=== PATIENT | female | born 1935 | race Caucasian/White ===

== ENCOUNTER → 2023-10-19 08:47 | Outpatient (REF) | payer MEDICARE, OTHER, SELFPAY | LOC: RAD 08:47 | PROVIDERS: ATTENDING PHYSICIAN Nurse Practitioner Family | DX: J06.9 Acute upper respiratory infection, unspecified (principal); R05.1 Acute cough; J47.9 Bronchiectasis, uncomplicated; I50.30 Unspecified diastolic (congestive) heart failure | CPT/HCPCS: 71046 ==

== ENCOUNTER 2023-10-19 15:16 | Emergency (ER) | payer MEDICARE, OTHER, SELFPAY ==
[2023-10-19 15:17] VITALS: BP 163/83
[2023-10-19 15:50] LABS: % Basophils 0.6 % (0-2); % Eosinophils 1.2 % (0-6); % Immature Granulocytes 0.4 % (0-0.5); % Lymphocytes 9.6 % (20.5-51.1); % Monocytes 10.8 % (1.7-9.3); % Neutrophils 77.4 % (42.2-75.2); Absolute Basophils 0.1 10^3/uL (0-0.2); Absolute Eosinophils 0.1 10^3/uL (0-0.7); Absolute Lymphocytes 0.9 10^3/uL (1.2-3.4); Absolute Neutrophils 7.2 10^3/uL (1.4-6.5); Hematocrit 35.8 % (37.0-47.0); Hemoglobin 12.5 g/dL (12.0-16.0); Mean Corp Hgb Conc. 34.9 g/dL (33.0-37.0); Mean Corpuscular Hgb 32.6 pg (27.0-31.0); Mean Corpuscular Volume 93.2 fL (81.0-99.0); Mean Platelet Volume 9.7 fL (7.4-10.4); Nucleated Red Blood Cells % 0 %; Platelet Count 252 10^3/uL (130-400); Red Blood Cell Count 3.84 10^6/uL (4.20-5.40); Red Cell Dist. Width 12.5 % (11.5-14.5); White Blood Cell Count 9.3 10^3/uL (4.8-10.8)
[2023-10-19 15:58] LABS: Lactic Acid 1.5 mmol/L (0.7-2.0)
[2023-10-19 16:04] LABS: COVID-19 Antigen Negative (Negative)
[2023-10-19 16:09] LABS: ALT (SGPT) 27 U/L (0-35); AST (SGOT) 42 U/L (14-36); Alkaline Phosphatase 103 U/L (38-126); Blood Urea Nitrogen 31 mg/dl (7-17); Calcium 8.9 mg/dl (8.4-10.2); Carbon Dioxide 26 mmol/L (22-30); Chloride 94 mmol/L (98-107); Glucose 132 mg/dl (70-99); Potassium 3.9 mmol/L (3.5-5.1); Sodium 129 mmol/L (135-145); Total Bilirubin 0.9 mg/dl (0.2-1.3); Total Protein 7.4 g/dl (6.3-8.2); eGFR 36.41
--- NOTE | 2023-10-19 17:10 | ED.GENMED ---
History of Present Illness
General
Chief Complaint: Breathing Problem
Source: patient
Exam Limitations: none
Time Seen by Provider: 10/19/23 17:09
Nursing documentation reviewed up to this point in time: agreed with
Travel History
Have you had any contact with someone who has COVID-19?: No
Do you have any symptoms of coronavirus? Fever > 100 degrees, chills, cough, shortness of breath, sore throat, loss of taste or smell, muscle aches, or headache?: Yes
Symptoms:: cough, shortness of breath.
History of Present Illness
History of Present Illness:
88-year-old female with history of TIA, neuropathy, A-fib, on Eliquis, CHF, HTN, HLD, GERD, hypothyroid, anxiety/depression presents with cough, increasing SOB for past [address] Cabral 5 days ago and started on Doxycycline 100 mg BID, has
not felt any better with chest congestion, cough, and shortness of breath, voice hoarse.
Out Pt for CXR today showed questionable LLL pneumonia.
Patient denies fever or chills. Denies nausea or vomiting. She denies chest pain. She does have SANCHEZ.
Past History
Past History
ED Past Medical History: Arrthythmia (Atrial fibrillation), GERD, HTN, Hypothyroidism and Other (back pain); Negative Cancer
ED Past Surgical History: Gynecological, Orthopedic and Tonsilectomy
Social History
Tobacco: Non-smoker
Alcohol: None
Drug: None
Personal:
Living: alone
Employment: Retired
Family History
Family History: CAD (Son with CAD)
Review of Systems
Review of Systems
Allergies reviewed?: Yes
All Other Systems: ROS reviewed and negative except as documented in HPI and ROS
Constitutional: Reports fatigue; Denies fever
Respiratory: Reports cough and trouble breathing (SANCHEZ)
Cardiac: Denies chest pain
ABD/GI: Denies abdominal pain, nausea, vomiting or diarrhea
: Denies dysuria, frequency or difficulty voiding
Musculoskeletal: Reports no symptoms; Denies edema
Skin: Reports no symptoms
Neurological: Reports no symptoms
Phy Exam
Physical Exam
Physical Exam:
GENERAL: No acute distress. A&Ox3.
CONSTITUTIONAL: Afebrile.
EYES: clear, conjunctivae normal
ENMT: moist mucus membranes, Pharynx nl, voice hoarse
RESPIRATORY: Regular respirations, nonlabored, lungs with fine crackles right base, more significant crackle left lower lung field. Pulse ox 96% RA, Intermittent coarse cough, nonproductive.
CARDIOVASCULAR: Regular rate and rhythm, no murmurs, no rubs.
GI: Soft, nontender, normal BS
MUSCULOSKELETAL: Moves with ease. Well perfused.
SKIN: Warm, dry, pink
PSYCH: Normal mood and affect. Well kept, interactive and appropriate
NEUROLOGIC: Awake, alert and oriented. No focal neurological deficits
Scores
Heart Failure Risk
Heart Failure Risk Score: Yes
History of Stroke or TIA: Yes
History of intubation for respiratory distress: No
Heart rate on ED arrival >/= 110: No
SaO2 <90% on arrival on room air: No
HR >/=110 during 3min walk test (or too ill to perform test): No
ECG has acute ischemic changes: No
Urea >/=12mmol/L (BUN 33.6mg/dL): No
Serum CO2>/=35mmol/L: No
Troponin I or T elevated to [place] Level (0.4mg/dL): No
NT-proBNP >/=5,000ng/L (5,000pg/ml): No
HF Risk Score: 1
Admission Status: MEDIUM RISK 5.1% Consider observation or discharge to home with homecare & f/u visit to PCP/Team Leader/Research Psychologist, or SNF for treatment
Course
Orders/Labs/Results
Orders:
Orders
10/19/23 15:28
COVID-19 Antigen Urgent
Source: Nasal Swab
Complete Blood Count/With Diff Urgent
Comprehensive Metabolic Panel Urgent
Lactate Level [Lactic Acid] Q4H
Blood Culture Q30M
DEBBIE Source: Blood/Venous
Specimen Description:
Influenza A+B Rapid Molecular Urgent
DEBBIE Source: Nasal Swab
Specimen Description:
10/19/23 17:36
NT-proBNP Urgent
Troponin I Urgent
10/19/23 18:21
Lorazepam [Ativan] 0.5 mg PO NOW STA
10/19/23 19:06
Furosemide [Lasix] 40 mg IV NOW STA
10/19/23 19:07
CefTRIAXone [Rocephin] 1,000 mg IV NOW STA
Abnormal Lab Results
10/19/23
15:28
RBC 3.84 L 10^6/uL
(4.20-5.40)
Hct 35.8 L %
(37.0-47.0)
MCH 32.6 H pg
(27.0-31.0)
Absolute Neuts (auto) 7.2 H 10^3/uL
(1.4-6.5)
Absolute Lymphs (auto) 0.9 L 10^3/uL
(1.2-3.4)
Absolute Monos (auto) 1.0 H 10^3/uL
(0.1-0.6)
Neutrophils % 77.4 H %
(42.2-75.2)
Lymphocytes % 9.6 L %
(20.5-51.1)
Monocytes % 10.8 H %
(1.7-9.3)
Sodium 129 L mmol/L
(135-145)
Chloride 94 L mmol/L
(98-107)
BUN 31 H mg/dl
(7-17)
Creatinine 1.4 H mg/dL
(0.6-1.0)
Glucose 132 H mg/dl
(70-99)
AST 42 H U/L
(14-36)
10/19/23 15:28
10/19/23 15:28
Vital Signs
Initial and Last Documented VS:
Initial Vital Signs
Temp Pulse Resp BP Pulse Ox
98.8 F 82 16 163/83 96
10/19/23 15:17 10/19/23 15:17 10/19/23 15:17 10/19/23 15:17 10/19/23 15:17
Last Documented Vital Signs
Temp Pulse Resp BP Pulse Ox
98.8 F 81 22 131/61 97
10/19/23 15:17 10/19/23 19:30 10/19/23 17:31 10/19/23 19:00 10/19/23 19:15
Juvenile Justice Officer consulted with Physician
Juvenile Justice Officer consulted with physician?: Yes
Name of Physician Consulted: Arlene
MDM/Problems Addressed
Differential Diagnosis Includes:
Pneumonia, COVID, CHF
MDM/Problems Addressed:
88-year-old female with history of TIA, neuropathy, A-fib, on Eliquis, CHF, HTN, HLD, GERD, hypothyroid, anxiety/depression presents with cough, increasing SOB for past [address] Cabral 5 days ago and started on Doxycycline 100 mg BID, has
not felt any better with chest congestion, cough, and shortness of breath, voice hoarse.
Out Pt for CXR today showed questionable LLL pneumonia.
Patient denies fever or chills. Denies nausea or vomiting. She denies chest pain. She does have SANCHEZ.
Afebrile, NAD, no hypoxemia
10/19/2023 1719 PM
Records reviewed:
Patient had outpatient chest x-ray earlier today, radiology report read: IMPRESSION:
Small patchy opacification most likely left lower lobe, suspicious for pneumonia.
CBC with no clinically significant abnormality
CMP: Sodium 129 , BUN/creat at her baseline, GFR slightly worse worsening from previous
COVID-negative
Influenza negative
10/19/2023 1819 PM
BNP 2370
Troponin normal
10/19/2023 1921 PM
88-year-old female with mild left lower lobe pneumonia, has had a total of 5 doses of doxycycline and she was not feeling like she was getting better so she came here for evaluation
She appears absolutely in no distress, she is pleasant and healthy, bright and alert
She is afebrile her blood work is unremarkable
BNP elevated, clinically she is not fluid overloaded
She is very comfortable going home, to continue doxycycline
She was instructed to have her sodium rechecked next week
Case discussed with Dr. Jacobs who agrees with assessment and plan.
Chronic conditions affecting care: HTN and Arrhythmia (afib)
*Pulse Oximetry
Patient hypoxic: no
*Critical Care Note
Total Time (30-74mins, 75-104mins- exclusive of procedures): Not Applicable
ED Attending Note
-
Portions of this chart may have been created with voice recognition software.� Occasional wrong word or��sound alike� substitutions may have occurred due to the inherent limitations of voice recognition software.
Discharge Plan
Departure
Patient Disposition: Home (Routine Discharge)
Date of Disposition: 10/19/23
Time of Disposition: 19:06
Patient with high blood pressure during this ER visit?: No
Condition: Good
Discharge Problem:
LLL pneumonia
Instructions: Community-Acquired Pneumonia, Adult (DC)
Prescriptions:
No Action
cholecalciferol (vitamin D3) 1,000 UNIT tablet
1,000 unit PO DAILY
atorvastatin 40 mg Tablet
20 mg PO QPM
spironolactone 25 mg Tablet
12.5 mg PO DAILY
furosemide 20 mg Tablet
20 mg PO DAILY
Eliquis 5 mg Tablet
5 mg PO BID
famotidine [Pepcid AC] 20 mg Tablet
20 mg PO DAILYPRN PRN (Reason: GERD)
atenolol 50 mg tablet
50 mg PO BID
lorazepam 0.5 MG tablet
0.5 mg PO DAILYPRN PRN (Reason: anxiety) Qty: 3 0RF
dofetilide 125 mcg Capsule
125 mcg PO Q12 Qty: 60 1RF
Referrals:
Tyler Cabral MD [Family Provider] - Follow up in 5-7 days
Activity Restrictions/Additional Instructions:
As we discussed, your blood work shows nothing worrisome
Your sodium is a little low so you should have it rechecked next week by your family doctor
Continue your doxycycline and Mucinex
See your doctor next week for recheck and have your sodium level rechecked at that visit.
Interventions
Interventions:
*Risk Screen - Suicide Last Done: 10/19/23 17:33
*General Assessment Last Done: 10/19/23 17:33
*Neglect/Abuse Screening Last Done: 10/19/23 17:33
ED- Fall Risk Assessment Last Done: 10/19/23 19:42
*ED COVID-19 Vaccine History Last Done: 10/19/23 17:33
*Nursing Disposition Last Done: 10/19/23 19:50
ED- Cardiac Assessment Last Done: 10/19/23 17:41
ED- Pulmonary Assessment Last Done: 10/19/23 17:41
Discharge Date and Time
Discharge Date/Time: 10/19/23 19:51
[2023-10-19 17:31] VITALS: BP 142/75; BMI 27.9
[2023-10-19 18:00] VITALS: BP 127/57
[2023-10-19 18:10] LABS: NT-proBNP 2370 pg/ml; Troponin I < 0.012 ng/ml
[2023-10-19] MEDS: ATIVAN 0.5 MG PO (18:26)
[2023-10-19 19:00] VITALS: BP 131/61
== END 2023-10-19 19:51 | disposition home or self-care (01) ==
LOC: EMR 15:16
PROVIDERS: Registered Nurse; EMERGENCY PHYSICIAN Emergency Medicine; FAMILY PHYSICIAN Internal Medicine Geriatric Medicine
DX: J18.9 Pneumonia, unspecified organism (principal); I11.0 Hypertensive heart disease with heart failure; I48.91 Unspecified atrial fibrillation; I50.9 Heart failure, unspecified; Z11.52 Encounter for screening for COVID-19; Z86.73 Personal history of transient ischemic attack (TIA), and cerebral infarction without residual deficits; Z79.01 Long term (current) use of anticoagulants
CPT/HCPCS: 99284; 71046; 80053; 83605; 83880; 84484; 85025; 87040; 87502; 87811

== ENCOUNTER → 2023-11-07 09:25 | Outpatient (REF) | payer MEDICARE, OTHER, SELFPAY ==
[2023-11-07 10:56] LABS: Blood Urea Nitrogen 34 mg/dl (7-17); Calcium 9.6 mg/dl (8.4-10.2); Carbon Dioxide 31 mmol/L (22-30); Chloride 98 mmol/L (98-107); Glucose 105 mg/dl (70-99); Potassium 3.9 mmol/L (3.5-5.1); Sodium 137 mmol/L (135-145); eGFR 48.63
== END ==
LOC: RAD 09:25
PROVIDERS: ATTENDING PHYSICIAN Nurse Practitioner Family; FAMILY PHYSICIAN Internal Medicine Geriatric Medicine; REFERRING PHYSICIAN Internal Medicine Critical Care Medicine
DX: J18.9 Pneumonia, unspecified organism (principal); E87.1 Hypo-osmolality and hyponatremia
CPT/HCPCS: 36415; 71046; 80048

== ENCOUNTER 2023-12-07 17:07 | Emergency (ER) | payer MEDICARE, OTHER, SELFPAY ==
[2023-12-07] VITALS (18 sets, daily range): BP systolic 86–146; BP diastolic 47–90; BMI 29.1
[2023-12-07 17:31] LABS: % Eosinophils 3.1 % (0-6); % Immature Granulocytes 0.1 % (0-0.5); % Lymphocytes 17.9 % (20.5-51.1); % Monocytes 13.1 % (1.7-9.3); % Neutrophils 64.8 % (42.2-75.2); Absolute Basophils 0.1 10^3/uL (0-0.2); Absolute Eosinophils 0.3 10^3/uL (0-0.7); Absolute Lymphocytes 1.4 10^3/uL (1.2-3.4); Absolute Neutrophils 5.2 10^3/uL (1.4-6.5); Hematocrit 35.7 % (37.0-47.0); Hemoglobin 12.2 g/dL (12.0-16.0); Mean Corp Hgb Conc. 34.2 g/dL (33.0-37.0); Mean Corpuscular Volume 96.5 fL (81.0-99.0); Mean Platelet Volume 9.4 fL (7.4-10.4); Nucleated Red Blood Cells % 0 %; Platelet Count 284 10^3/uL (130-400); Red Cell Dist. Width 12.9 % (11.5-14.5)
[2023-12-07 17:54] LABS: ALT (SGPT) 20 U/L (0-35); AST (SGOT) 33 U/L (14-36); Alkaline Phosphatase 84 U/L (38-126); Blood Urea Nitrogen 42 mg/dl (7-17); Calcium 9.1 mg/dl (8.4-10.2); Carbon Dioxide 26 mmol/L (22-30); Chloride 104 mmol/L (98-107); Glucose 117 mg/dl (70-99); Potassium 4.3 mmol/L (3.5-5.1); Sodium 136 mmol/L (135-145); Total Bilirubin 0.4 mg/dl (0.2-1.3); Total Protein 7.4 g/dl (6.3-8.2); eGFR 36.41
[2023-12-07 17:56] LABS: NT-proBNP 1880 pg/ml; Troponin I < 0.012 ng/ml
--- NOTE | 2023-12-07 18:10 | ED.GENMED ---
History of Present Illness
General
Chief Complaint: Heart Rate Problem
Source: patient
Exam Limitations: none
Time Seen by Provider: 12/07/23 18:09
Travel History
Have you had any contact with someone who has COVID-19?: No
Do you have any symptoms of coronavirus? Fever > 100 degrees, chills, cough, shortness of breath, sore throat, loss of taste or smell, muscle aches, or headache?: No
History of Present Illness
History of Present Illness:
88-year-old female monitoring her heart rate per her cardiology. They have lowered her dose of atenolol from 50 twice daily to 25 twice daily a week ago. Has had some palpitations lightheadedness. Heart rate has been up to 108. Patient discussed
with cardiology and asked to come in for possible cardioversion
Past History
Past History
ED Past Medical History: Arrthythmia (Atrial fibrillation), GERD, HTN, Hypothyroidism and Other (back pain); Negative Cancer
ED Past Surgical History: Gynecological, Orthopedic and Tonsilectomy
Social History
Tobacco: Non-smoker
Alcohol: None
Drug: None
Personal:
Living: alone
Employment: Retired
Family History
Family History: CAD (Son with CAD)
Review of Systems
Review of Systems
All Other Systems: Not applicable
Respiratory: Denies trouble breathing
Cardiac: Denies chest pain or syncope
Phy Exam
Physical Exam
Physical Exam:
GENERAL: Alert and oriented in no apparent distress
EYE: Orbits normal.
NECK: Supple, no thyroid palpable
ENT: Pharynx without erythema
CARDIAC: Irregular irregular. Borderline tachycardia
LUNGS: Clear breath sounds,normal
ABDOMEN: Soft, without focal tenderness or distention
NEUROLOGICAL: Alert and oriented , grossly non-focal
SKIN: Warm and dry, no rash or lesion, no discoloration, skin intact.
MUSCULOSKELETAL: No edema,no deformity.Good color
PSYCH: Normal and appropriate interaction.
Course
Orders/Labs/Results
Orders:
Orders
12/07/23 17:17
Electrocardiogram (*1) Urgent
Reason for Study: Other
Other Reason for Exam: Respiratory Distress
Cardiac Monitoring- Treatment ONCE
EKG- Treatment ONCE
IV Insert/Care/Rem.- Treatment PRN
O2 Therapy [RESP] Urgent
Titrate/Wean O2 to maintain O2 sat greater than (%): 93
Special Instructions: TO MAINTAIN CONTINUOUS O2 SATS >/= 93%
Pulse Ox/cont/shift [RESP] Urgent
Quantity: 1
Special Instructions: continuous pulse ox
12/07/23 17:25
Complete Blood Count/With Diff Urgent
Comprehensive Metabolic Panel Urgent
NT-proBNP Urgent
Troponin I Urgent
12/07/23 19:12
Propofol [Diprivan] 20 ml .ROUTE .STK-MED
12/07/23 19:30
EKG [Electrocardiogram (*1)] Urgent
Reason for Study: Other
Other Reason for Exam: cardioversion
EKG- Treatment ONCE
Abnormal Lab Results
12/07/23
17:25
RBC 3.70 L 10^6/uL
(4.20-5.40)
Hct 35.7 L %
(37.0-47.0)
MCH 33.0 H pg
(27.0-31.0)
Absolute Monos (auto) 1.0 H 10^3/uL
(0.1-0.6)
Lymphocytes % 17.9 L %
(20.5-51.1)
Monocytes % 13.1 H %
(1.7-9.3)
BUN 42 H mg/dl
(7-17)
Creatinine 1.4 H mg/dL
(0.6-1.0)
Glucose 117 H mg/dl
(70-99)
12/07/23 17:25
12/07/23 17:25
Vital Signs
Initial and Last Documented VS:
Initial Vital Signs
Temp Pulse Resp BP Pulse Ox
97.7 F 115 22 146/83 95
12/07/23 17:12 12/07/23 17:12 12/07/23 17:12 12/07/23 17:12 12/07/23 17:12
Last Documented Vital Signs
Temp Pulse Resp BP Pulse Ox
97.8 F 69 16 135/61 98
12/07/23 19:35 12/07/23 20:30 12/07/23 20:30 12/07/23 20:30 12/07/23 20:30
Procedures
Cardioversion
Indication:: Afib
Performed by:: Myself
Synchronized?: Yes
Energy Used: 200 joules
Successful?: Yes
ASA Risk Score: Class II
Any reaction or bad outcome to prior sedation/anesthesia?: No history of a reaction
Sedation level to be attained: moderate
Chart and allergies reviewed: Yes
Patient reassessed prior to sedation: Yes
Time out completed at (validating right patient & procedure): 19:20
History of difficult intubation: No
Airway free of obstruction: Yes
Patient has a gag reflex: Yes
Patient is able to open mouth: Yes
Patient has no dentures: Yes
Patient has no loose teeth: Yes
Medication administered by Provider during Moderate Sedation: IV Propofol (mg)
Total dose administered: 50
Time drug administered: 19:23
Start Time: 19:20
Stop Time: 19:31
*Pulse Oximetry
Patient hypoxic: no
*EKG
Interpreted by ED Provider?: Yes
Interpretation: abnormal
Comparison EKG: changes noted
Heart Rate: 99
Rate: normal
Rhythm: atrial flutter
Taylor: normal axis
Interval: normal interval
QRS Pattern: normal QRS
Ischemia: non-specific ST changes
*Critical Care Note
Total Time (30-74mins, 75-104mins- exclusive of procedures): 15
Update Note
Update Note:
Discussed with patient and with cardiology. Patient is medically stable and it reasonable to adjust rate control and follow-up however also reasonable for cardioversion. 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 Patient is comfortable
with this. Risk-benefit explained. Consent signed.
Patient tolerated well. Repeat EKG normal sinus rhythm at 70 with PVCs. Long QT interval. Will observe for an hour and then medically stable for discharge.
ED Attending Note
-
Portions of this chart may have been created with voice recognition software.� Occasional wrong word or��sound alike� substitutions may have occurred due to the inherent limitations of voice recognition software.
Discharge Plan
Departure
Patient Disposition: Home (Routine Discharge)
Date of Disposition: 12/07/23
Time of Disposition: 19:57
Patient with high blood pressure during this ER visit?: No
Discharge Problem:
Atrial fibrillation/RVR
Instructions: Atrial Fibrillation (DC), MODERATE SEDATION ADULT
Prescriptions:
No Action
cholecalciferol (vitamin D3) 1,000 UNIT tablet
1,000 unit PO DAILY
atorvastatin 40 mg Tablet
20 mg PO QPM
spironolactone 25 mg Tablet
12.5 mg PO DAILY
furosemide 20 mg Tablet
20 mg PO DAILY
Eliquis 5 mg Tablet
5 mg PO BID
famotidine [Pepcid AC] 20 mg Tablet
20 mg PO DAILYPRN PRN (Reason: GERD)
atenolol 50 mg tablet
50 mg PO BID
lorazepam 0.5 MG tablet
0.5 mg PO DAILYPRN PRN (Reason: anxiety) Qty: 3 0RF
dofetilide 125 mcg Capsule
125 mcg PO Q12 Qty: 60 1RF
Referrals:
yTler Cabral MD [Family Provider] -
Activity Restrictions/Additional Instructions:
Follow-up closely with your primary physician and wire splicer next week
Adjust your atenolol as discussed. Go back to your previous dose
Interventions
Interventions:
*Risk Screen - Suicide Last Done: 12/07/23 17:12
*General Assessment Last Done: 12/07/23 17:12
*Neglect/Abuse Screening Last Done: 12/07/23 17:12
ED- Fall Risk Assessment Last Done: 12/07/23 18:08
*Nursing Disposition Last Done: 12/07/23 20:57
ED- Cardiac Assessment Last Done: 12/07/23 18:08
ED- Pulmonary Assessment Last Done: 12/07/23 18:08
Discharge Date and Time
Discharge Date/Time: 12/07/23 21:03
Print Language: HEBREW
== END 2023-12-07 21:03 | disposition home or self-care (01) ==
LOC: EMR 17:07
PROVIDERS: Emergency Medicine; EMERGENCY PHYSICIAN Emergency Medicine; FAMILY PHYSICIAN Internal Medicine Geriatric Medicine
DX: I48.91 Unspecified atrial fibrillation (principal); R42 Dizziness and giddiness; K21.9 Gastro-esophageal reflux disease without esophagitis; I10 Essential (primary) hypertension; E03.9 Hypothyroidism, unspecified; Z79.01 Long term (current) use of anticoagulants; Z88.8 Allergy status to other drugs, medicaments and biological substances; Z88.1 Allergy status to other antibiotic agents; Z91.040 Latex allergy status
CPT/HCPCS: 92960; 99285; 99152; 80053; 83880; 84484; 85025; 93005

== ENCOUNTER → 2023-12-17 10:55 | Outpatient (REF) | payer MEDICARE, OTHER, SELFPAY | LOC: WDC 10:55 | PROVIDERS: ATTENDING PHYSICIAN Internal Medicine Geriatric Medicine | DX: Z12.31 Encounter for screening mammogram for malignant neoplasm of breast (principal); Z12.39 Encounter for other screening for malignant neoplasm of breast | CPT/HCPCS: 77063; 77067 ==

== ENCOUNTER → 2024-01-02 09:01 | Outpatient (REF) | payer MEDICARE, OTHER, SELFPAY ==
[2024-01-02 09:46] LABS: % Eosinophils 3.6 % (0-6); % Immature Granulocytes 0.4 % (0-0.5); % Lymphocytes 16.4 % (20.5-51.1); % Monocytes 13.1 % (1.7-9.3); % Neutrophils 65.5 % (42.2-75.2); Absolute Basophils 0.1 10^3/uL (0-0.2); Absolute Eosinophils 0.3 10^3/uL (0-0.7); Absolute Lymphocytes 1.2 10^3/uL (1.2-3.4); Absolute Neutrophils 4.8 10^3/uL (1.4-6.5); Mean Corp Hgb Conc. 33.3 g/dL (33.0-37.0); Mean Corpuscular Hgb 32.6 pg (27.0-31.0); Mean Corpuscular Volume 97.8 fL (81.0-99.0); Mean Platelet Volume 9.7 fL (7.4-10.4); Nucleated Red Blood Cells % 0 %; Platelet Count 312 10^3/uL (130-400); Red Blood Cell Count 3.68 10^6/uL (4.20-5.40); Red Cell Dist. Width 12.6 % (11.5-14.5); White Blood Cell Count 7.3 10^3/uL (4.8-10.8)
[2024-01-02 10:44] LABS: ALT (SGPT) 23 U/L (0-35); AST (SGOT) 32 U/L (14-36); Albumin 4.1 g/dl (3.5-5.0); Alkaline Phosphatase 80 U/L (38-126); Blood Urea Nitrogen 42 mg/dl (7-17); Calcium 9.5 mg/dl (8.4-10.2); Carbon Dioxide 29 mmol/L (22-30); Chloride 102 mmol/L (98-107); Glucose 103 mg/dl (70-99); HDL Cholesterol 63 mg/dl; LDL Cholesterol, Calculated 72 mg/dl; Potassium 4.6 mmol/L (3.5-5.1); Sodium 135 mmol/L (135-145); Total Bilirubin 0.7 mg/dl (0.2-1.3); Total Cholesterol 150 mg/dl (50-199); Total Protein 7.2 g/dl (6.3-8.2); Triglyceride 75 mg/dl (10-149); Very Low Density Lipoprotein 15 mg/dl (0-30); eGFR 36.41
== END ==
LOC: REG 09:01
PROVIDERS: ATTENDING PHYSICIAN Internal Medicine Geriatric Medicine
DX: I10 Essential (primary) hypertension (principal); E78.2 Mixed hyperlipidemia; F41.9 Anxiety disorder, unspecified; K21.9 Gastro-esophageal reflux disease without esophagitis; E78.00 Pure hypercholesterolemia, unspecified; I34.0 Nonrheumatic mitral (valve) insufficiency; E87.1 Hypo-osmolality and hyponatremia; Z99.89 Dependence on other enabling machines and devices; I87.2 Venous insufficiency (chronic) (peripheral); M51.36 Other intervertebral disc degeneration, lumbar region; R06.02 Shortness of breath; Z13.89 Encounter for screening for other disorder
CPT/HCPCS: 36415; 80053; 80061; 85025

== ENCOUNTER → 2024-01-29 16:16 | Outpatient (REF) | payer MEDICARE, OTHER, SELFPAY ==
[2024-01-29 17:23] LABS: Erythrocyte Sed Rate 26 mm/hour (0-20)
[2024-01-29 17:31] LABS: Blood Urea Nitrogen 45 mg/dl (7-17); Calcium 9.7 mg/dl (8.4-10.2); Carbon Dioxide 29 mmol/L (22-30); Chloride 100 mmol/L (98-107); Glucose 92 mg/dl (70-99); Potassium 4.3 mmol/L (3.5-5.1); Sodium 137 mmol/L (135-145)
[2024-01-29 17:35] LABS: C-Reactive Protein < 5.00 mg/L (0.0-10.00)
[2024-01-31 14:54] LABS: Rheumatoid Agglutinin Less Than 10 IU (<10 IU)
[2024-01-31 20:56] LABS: ANA, IgG Reflex to HEp-2 None Detected (None Detected)
[2024-01-31 21:48] LABS: CCP Antibody IgG/IgA 4 Units (0-19)
== END ==
LOC: REG 16:16
PROVIDERS: ATTENDING PHYSICIAN Nurse Practitioner Family
DX: M51.36 Other intervertebral disc degeneration, lumbar region (principal); G89.29 Other chronic pain; M54.50 Low back pain, unspecified; M25.552 Pain in left hip
CPT/HCPCS: 36415; 80048; 85652; 86038; 86140; 86200; 86430

== ENCOUNTER → 2024-03-07 09:38 | Outpatient (REF) | payer MEDICARE, OTHER, SELFPAY ==
[2024-03-07 11:00] LABS: % Basophils 1.3 % (0-2); % Immature Granulocytes 0.4 % (0-0.5); % Lymphocytes 14.8 % (20.5-51.1); % Monocytes 10.9 % (1.7-9.3); % Neutrophils 69.6 % (42.2-75.2); Absolute Basophils 0.1 10^3/uL (0-0.2); Absolute Eosinophils 0.2 10^3/uL (0-0.7); Absolute Lymphocytes 1.2 10^3/uL (1.2-3.4); Absolute Monocytes 0.9 10^3/uL (0.1-0.6); Absolute Neutrophils 5.5 10^3/uL (1.4-6.5); Hematocrit 37.6 % (37.0-47.0); Hemoglobin 12.8 g/dL (12.0-16.0); Mean Corpuscular Hgb 32.9 pg (27.0-31.0); Mean Corpuscular Volume 96.7 fL (81.0-99.0); Nucleated Red Blood Cells % 0 %; Platelet Count 288 10^3/uL (130-400); Red Blood Cell Count 3.89 10^6/uL (4.20-5.40); Red Cell Dist. Width 12.3 % (11.5-14.5); White Blood Cell Count 7.9 10^3/uL (4.8-10.8)
[2024-03-07 11:31] LABS: ALT (SGPT) 26 U/L (0-35); AST (SGOT) 38 U/L (14-36); Albumin 3.9 g/dl (3.5-5.0); Alkaline Phosphatase 108 U/L (38-126); Blood Urea Nitrogen 43 mg/dl (7-17); Calcium 9.2 mg/dl (8.4-10.2); Carbon Dioxide 27 mmol/L (22-30); Chloride 101 mmol/L (98-107); Glucose 129 mg/dl (70-99); Potassium 4.8 mmol/L (3.5-5.1); Sodium 136 mmol/L (135-145); Total Bilirubin 0.5 mg/dl (0.2-1.3); Total Protein 7.1 g/dl (6.3-8.2); eGFR 43.81
[2024-03-07 11:37] LABS: NT-proBNP 967 pg/ml
== END ==
LOC: REG 09:38
PROVIDERS: ATTENDING PHYSICIAN Internal Medicine Geriatric Medicine
DX: I10 Essential (primary) hypertension (principal); E78.2 Mixed hyperlipidemia; F41.9 Anxiety disorder, unspecified; K21.9 Gastro-esophageal reflux disease without esophagitis; E78.00 Pure hypercholesterolemia, unspecified; I35.0 Nonrheumatic aortic (valve) stenosis; E87.1 Hypo-osmolality and hyponatremia; Z99.89 Dependence on other enabling machines and devices; I87.2 Venous insufficiency (chronic) (peripheral); M51.36 Other intervertebral disc degeneration, lumbar region; R06.02 Shortness of breath; Z13.89 Encounter for screening for other disorder; I48.0 Paroxysmal atrial fibrillation; I50.31 Acute diastolic (congestive) heart failure; R73.01 Impaired fasting glucose; Z68.25 Body mass index [BMI] 25.0-25.9, adult; R53.1 Weakness; R74.8 Abnormal levels of other serum enzymes
CPT/HCPCS: 36415; 80053; 83880; 85025

== ENCOUNTER → 2024-04-17 11:17 | Outpatient (REF) | payer MEDICARE, OTHER, SELFPAY | LOC: RAD 11:17 | PROVIDERS: ATTENDING PHYSICIAN Internal Medicine Geriatric Medicine; REFERRING PHYSICIAN Internal Medicine Cardiovascular Disease | DX: M79.10 Myalgia, unspecified site (principal); I10 Essential (primary) hypertension; E78.2 Mixed hyperlipidemia; F41.9 Anxiety disorder, unspecified; K21.9 Gastro-esophageal reflux disease without esophagitis; E78.00 Pure hypercholesterolemia, unspecified; I34.0 Nonrheumatic mitral (valve) insufficiency; E87.1 Hypo-osmolality and hyponatremia; I87.2 Venous insufficiency (chronic) (peripheral); M51.36 Other intervertebral disc degeneration, lumbar region; R06.02 Shortness of breath; Z13.89 Encounter for screening for other disorder; I48.0 Paroxysmal atrial fibrillation; I50.31 Acute diastolic (congestive) heart failure; R73.01 Impaired fasting glucose; Z68.25 Body mass index [BMI] 25.0-25.9, adult; R53.1 Weakness; R74.8 Abnormal levels of other serum enzymes; J04.10 Acute tracheitis without obstruction | CPT/HCPCS: 71046 ==

== ENCOUNTER 2024-04-28 05:55 | Day surgery (SDC) | payer MEDICARE, OTHER, SELFPAY ==
[2024-04-15 09:18] VITALS: BMI 28.5
[2024-04-28] VITALS (11 sets, daily range): BP systolic 97–161; BP diastolic 42–102
--- NOTE | 2024-04-28 07:32 | ITS.CL.ABL ---
[employer] - Ablation
Ablation
Procedure Report:
ELECTROPHYSIOLOGIC STUDY AND POSSIBLE ABLATION
DATE: April 28, 2024
Primary Care Provider: Dr Tyler Cabral
Primary Audio Director: Dr Wes Vail
INDICATION:
Symptomatic Atrial Fibrillation.
Paroxysmal
HISTORY: See H and P.
Symptomatic AF, poorly controlled with attempted medical therapy.
Mrs. Patrick has been referred from Dr. Wes Vail regarding symptomatic paroxysmal atrial fibrillation.� She additionally has a history of heart failure with preserved ejection fraction. She has been managed with antiarrhythmic drug therapy,
dofetilide.� She last required electrical cardioversion July 20, 2023.� Echocardiogram from July 04, 2023 finds normal left ventricular size and function with no regional wall motion abnormalities, ejection fraction 65%.� Mildly dilated left
atrium. Mild mitral and tricuspid regurgitation without pulmonary hypertension.
HAS-BLED:
Age
CHADSVASc:
HFpEF
Age
F Gender
PRESENTING RHYTHM: AF
HISTORY: See H and P.
Symptomatic AF, poorly controlled with attempted medical therapy.
ANTIARRHYTHMIC DRUG: Dofetilide discontinued 04/25/24
ANTICOAGULATION: apixaban
'TIME-OUT': called and confirmed.
SEDATION/ANESTHESIA: provided via the anesthesia department using general anesthesia.
PROCEDURE:
Ultrasound Guidance performed by al was utilized for femoral venous Vascular Access b/l.
A decapolar CS catheter was placed within the CS for mapping and pacing.
The intracardiac ultrasound catheter was positioned in the RA for continuous intracardiac ultrasound imaging.
Heparin bolus and infusion to target ACT at 300 -350 seconds was administered. Transseptal puncture was performed. This entailed advancing a sheath with dilator into the superior vena cava and withdrawing both (monitoring intracardiac ultrasound,
fluoroscopy and tip pressure) with the tip oriented toward the atrial septum. The fossa ovalis was engaged (indicated by sudden displacement of the sheath tip as well as tenting of the fossa seen on intracardiac ultrasound).
AcSweetgreen transseptal system was used. Left atrial catheter position was confirmed by echocardiographic imaging, pressure monitoring (LA mean pressure 12 mm Hg) and fluoroscopy. The sheath was advanced over the dilator and positioned in the left
atrium.
The multipolar mapping catheter was initially positioned through the transseptal sheath for high density mapping.
Geometry and voltage mapping was performed using the Bravo multipolar grid catheter. Navex was utilized for three-dimensional electroanatomical mapping.
A 3-D map was created using Navex. A 3-D reconstructed CT image was compared to the 3-D Navex map to assist in anatomic evaluation, mapping and ablation.
Cardioversion was performed to restore sinus rhythm. Sinus rhythm was restored but atrial fibrillation recurred within less than a minute.
The What's Trending Pulse Beacon Endoscopic PFA catheter and system was used for cardiac ablation. Catheter positioning was guided and confirmed using both I.C.E. and fluoroscopy.
PV isolation approach was used to electrically isolate each PV ostia. During PV isolation of the right superior pulmonary vein atrial fibrillation terminated to sinus rhythm and during continued ablation there were short paroxysms of atrial
fibrillation until no more atrial fibrillation was observed. After ostial isolation of all 4 pulmonary veins, LSPV, LIPV, RSPV, RIPV, additional ablation lesion set was performed to obtain wide area circumferential ablation and additional ablation
lesion set was also performed to isolate the posterior wall of the left atrium which demonstrated marked fractionation during electroanatomical mapping.
Remapping with the Bravo multipolar grid catheter found that all PVPs were eliminated at each vein demonstrating lack of entrance and exit block only from the right superior pulmonary vein towards its superior anterior quadrant. The ablation
catheter was then substituted and additional ablation was performed at the right superior pulmonary vein until it was completely isolated, entrance and exit block. At the end of ablation electrical isolation exists at each of the pulmonary veins at
the ostial level, at a wide area circumferential level and also the posterior wall of the left atrium.
I.C.E. :
Pre-Ablation Post-Ablation
LVEF: 55 % 55 %
WMA: none none
Pericardial effusion: none none
COMPLICATIONS:
None
SUMMARY:
- Mapping and ablation to isolate the PVs
- Additional AF ablation set after PVI (WACA and LA post wall isolation).
- 3-D Electroanatomical Mapping
- Intracardiac Ultrasound
Post ablation, I discussed today's findings and results with the patient's daughter, Rima.
RECOMMENDATIONS:
- Observe in monitored bed.
- Maintain oral anticoagulation.
- Discontinue dofetilide
- Office visit with Dr. Wes Vail in 3 months.
- Continue cardiovascular care with Dr. Wes Vail
Copy to:
Dr Tyler Cabral
Dr Wes Vail
[2024-04-28 08:40] LABS: ACT-LR - POC 327 Seconds (116-155)
[2024-04-28 08:58] LABS: ACT-LR - POC 355 Seconds (116-155)
[2024-04-28 09:23] LABS: ACT-LR - POC 308 Seconds (116-155)
[2024-04-28] MEDS: ANESTHETIC LOZENGE 1 LOZENGE PO (10:09)
--- NOTE | 2024-04-28 12:31 | W.PN.UPDATE ---
Update Note
Progress Note Update
Pt seen post PFA. Bilat groins with vascade closure, no ht/bleeding, non tender. OOB, urinating without difficulty, some incontinence that is normal for this pt. Post EKG NSR 80s, no acute changes. Resume eliquis tonight. Will discontinue tikosyn at
this time. Followup with Dr. Vail as scheduled. Home today if tele/groin sites remain stable.
== END 2024-04-28 12:29 | disposition home or self-care (01) ==
LOC: CATH 05:55
PROVIDERS: ATTENDING PHYSICIAN Internal Medicine Cardiovascular Disease; FAMILY PHYSICIAN Internal Medicine Geriatric Medicine; OTHER PHYSICIAN Internal Medicine Cardiovascular Disease
DX: I48.0 Paroxysmal atrial fibrillation (principal); R00.2 Palpitations; R06.02 Shortness of breath; R42 Dizziness and giddiness; R53.83 Other fatigue; Z79.899 Other long term (current) drug therapy; Z79.01 Long term (current) use of anticoagulants; I13.0 Hypertensive heart and chronic kidney disease with heart failure and stage 1 through stage 4 chronic kidney disease, or unspecified chronic kidney disease; N18.30 Chronic kidney disease, stage 3 unspecified; Z86.718 Personal history of other venous thrombosis and embolism; E78.5 Hyperlipidemia, unspecified; Z86.73 Personal history of transient ischemic attack (TIA), and cerebral infarction without residual deficits; I49.3 Ventricular premature depolarization; I50.32 Chronic diastolic (congestive) heart failure; R74.01 Elevation of levels of liver transaminase levels; K76.9 Liver disease, unspecified; F90.9 Attention-deficit hyperactivity disorder, unspecified type; F41.9 Anxiety disorder, unspecified; Z88.1 Allergy status to other antibiotic agents
CPT/HCPCS: C1732; C1894; C1733; C1769; C1730; C1892; C1766; 76937; 85347; 93005; 93656; 93657; C1760

== ENCOUNTER → 2024-06-19 09:17 | Outpatient (REF) | payer MEDICARE, OTHER, SELFPAY ==
[2024-06-19 10:50] LABS: ALT (SGPT) 31 U/L (0-35); AST (SGOT) 40 U/L (14-36); Alkaline Phosphatase 106 U/L (38-126); Blood Urea Nitrogen 39 mg/dl (7-17); Calcium 9.3 mg/dl (8.4-10.2); Carbon Dioxide 28 mmol/L (22-30); Chloride 99 mmol/L (98-107); Glucose 109 mg/dl (70-99); HDL Cholesterol 74 mg/dl; LDL Cholesterol, Calculated 67 mg/dl; Potassium 4.3 mmol/L (3.5-5.1); Sodium 140 mmol/L (135-145); Total Bilirubin 0.5 mg/dl (0.2-1.3); Total Cholesterol 154 mg/dl (50-199); Total Protein 7.3 g/dl (6.3-8.2); Triglyceride 69 mg/dl (10-149); Very Low Density Lipoprotein 13 mg/dl (0-30); eGFR 36.41
== END ==
LOC: REG 09:17
PROVIDERS: ATTENDING PHYSICIAN Internal Medicine Geriatric Medicine
DX: I10 Essential (primary) hypertension (principal); E78.2 Mixed hyperlipidemia; F41.9 Anxiety disorder, unspecified; K21.9 Gastro-esophageal reflux disease without esophagitis; E78.00 Pure hypercholesterolemia, unspecified; I34.0 Nonrheumatic mitral (valve) insufficiency; E87.1 Hypo-osmolality and hyponatremia; R06.02 Shortness of breath; I48.0 Paroxysmal atrial fibrillation; I50.31 Acute diastolic (congestive) heart failure; Z13.89 Encounter for screening for other disorder; R73.01 Impaired fasting glucose; Z68.25 Body mass index [BMI] 25.0-25.9, adult; R74.8 Abnormal levels of other serum enzymes
CPT/HCPCS: 36415; 80053; 80061

== ENCOUNTER → 2024-08-04 14:00 | Outpatient (REF) | payer MEDICARE, OTHER, SELFPAY ==
[2024-08-04 15:23] LABS: % Basophils 0.7 % (0-2); % Eosinophils 4.8 % (0-6); % Immature Granulocytes 0.3 % (0-0.5); % Lymphocytes 15.2 % (20.5-51.1); % Monocytes 12.1 % (1.7-9.3); % Neutrophils 66.9 % (42.2-75.2); Absolute Basophils 0.1 10^3/uL (0-0.2); Absolute Eosinophils 0.5 10^3/uL (0-0.7); Absolute Lymphocytes 1.4 10^3/uL (1.2-3.4); Absolute Monocytes 1.1 10^3/uL (0.1-0.6); Absolute Neutrophils 6.3 10^3/uL (1.4-6.5); Hematocrit 36.1 % (37.0-47.0); Hemoglobin 11.9 g/dL (12.0-16.0); Mean Corpuscular Hgb 32.7 pg (27.0-31.0); Mean Corpuscular Volume 99.2 fL (81.0-99.0); Mean Platelet Volume 9.6 fL (7.4-10.4); Nucleated Red Blood Cells % 0 %; Platelet Count 289 10^3/uL (130-400); Red Blood Cell Count 3.64 10^6/uL (4.20-5.40); Red Cell Dist. Width 12.7 % (11.5-14.5); White Blood Cell Count 9.5 10^3/uL (4.8-10.8)
[2024-08-04 15:42] LABS: NT-proBNP 1570 pg/ml
[2024-08-04 15:48] LABS: ALT (SGPT) 67 U/L (0-35); AST (SGOT) 63 U/L (14-36); Albumin 4.1 g/dl (3.5-5.0); Alkaline Phosphatase 165 U/L (38-126); Blood Urea Nitrogen 43 mg/dl (7-17); Calcium 9.1 mg/dl (8.4-10.2); Carbon Dioxide 25 mmol/L (22-30); Chloride 101 mmol/L (98-107); Glucose 85 mg/dl (70-99); Potassium 4.4 mmol/L (3.5-5.1); Sodium 138 mmol/L (135-145); Total Bilirubin 0.5 mg/dl (0.2-1.3); Total Protein 7.5 g/dl (6.3-8.2)
[2024-08-05 09:11] LABS: Glycohemoglobin (HgbA1c) 5.9 % (4.0-5.6)
== END ==
LOC: REG 14:00
PROVIDERS: ATTENDING PHYSICIAN Internal Medicine Cardiovascular Disease; FAMILY PHYSICIAN Internal Medicine Geriatric Medicine
DX: E78.00 Pure hypercholesterolemia, unspecified (principal); E87.1 Hypo-osmolality and hyponatremia; I10 Essential (primary) hypertension; E78.2 Mixed hyperlipidemia; F41.9 Anxiety disorder, unspecified; K21.9 Gastro-esophageal reflux disease without esophagitis; I34.0 Nonrheumatic mitral (valve) insufficiency; R06.02 Shortness of breath; I48.0 Paroxysmal atrial fibrillation; I50.31 Acute diastolic (congestive) heart failure; Z13.89 Encounter for screening for other disorder; R73.01 Impaired fasting glucose; Z68.25 Body mass index [BMI] 25.0-25.9, adult; R53.1 Weakness; R74.8 Abnormal levels of other serum enzymes
CPT/HCPCS: 36415; 80053; 83036; 83880; 85025

== ENCOUNTER → 2024-08-08 09:26 | Outpatient (REF) | payer MEDICARE, OTHER, SELFPAY | LOC: WDC 09:26 | PROVIDERS: ATTENDING PHYSICIAN Nurse Practitioner Primary Care | DX: N64.4 Mastodynia (principal) | CPT/HCPCS: 76642; 77061; 77065 ==

== ENCOUNTER → 2024-08-15 14:11 | Outpatient (REF) | payer MEDICARE, OTHER, SELFPAY ==
[2024-08-15 16:03] LABS: Blood Urea Nitrogen 45 mg/dl (7-17); Carbon Dioxide 29 mmol/L (22-30); Chloride 100 mmol/L (98-107); Glucose 92 mg/dl (70-99); Potassium 4.3 mmol/L (3.5-5.1); Sodium 139 mmol/L (135-145); eGFR 36.19
== END ==
LOC: REG 14:11
PROVIDERS: ATTENDING PHYSICIAN Internal Medicine Cardiovascular Disease; FAMILY PHYSICIAN Internal Medicine Geriatric Medicine
DX: I48.0 Paroxysmal atrial fibrillation (principal)
CPT/HCPCS: 36415; 80048

== ENCOUNTER → 2024-09-12 09:29 | Outpatient (REF) | payer MEDICARE, OTHER, SELFPAY ==
[2024-09-12 12:41] LABS: Blood Urea Nitrogen 36 mg/dl (7-17); Calcium 9.3 mg/dl (8.4-10.2); Carbon Dioxide 27 mmol/L (22-30); Chloride 101 mmol/L (98-107); Glucose 110 mg/dl (70-99); Potassium 4.6 mmol/L (3.5-5.1); Sodium 135 mmol/L (135-145); eGFR 43.54
== END ==
LOC: RAD 09:29
PROVIDERS: ATTENDING PHYSICIAN Internal Medicine Cardiovascular Disease; FAMILY PHYSICIAN Internal Medicine Geriatric Medicine
DX: R06.02 Shortness of breath (principal); I48.0 Paroxysmal atrial fibrillation
CPT/HCPCS: 36415; 71046; 80048

== ENCOUNTER → 2024-09-22 06:57 | Outpatient (REF) | payer MEDICARE, OTHER, SELFPAY ==
[2024-09-22] MEDS: LEXISCAN 0.4 MG IV (09:16)
== END ==
LOC: RCS 06:57
PROVIDERS: ATTENDING PHYSICIAN Internal Medicine Geriatric Medicine
DX: R06.02 Shortness of breath (principal)
CPT/HCPCS: 78452; 93017; A9500; J2785

== ENCOUNTER → 2024-09-30 11:18 | Outpatient (REF) | payer MEDICARE, OTHER, SELFPAY | LOC: RAD 11:18 | PROVIDERS: ATTENDING PHYSICIAN Internal Medicine Geriatric Medicine | DX: S99.922S Unspecified injury of left foot, sequela (principal) | CPT/HCPCS: 73620 ==

== ENCOUNTER → 2024-10-25 09:33 | Outpatient (REF) | payer MEDICARE, OTHER, SELFPAY ==
[2024-10-25 12:03] LABS: Blood Urea Nitrogen 39 mg/dl (7-17); Calcium 9.1 mg/dl (8.4-10.2); Carbon Dioxide 26 mmol/L (22-30); Chloride 98 mmol/L (98-107); Glucose 93 mg/dl (70-99); Potassium 4.6 mmol/L (3.5-5.1); Sodium 132 mmol/L (135-145); eGFR 30.83
[2024-10-25 12:04] LABS: NT-proBNP 1120 pg/ml
== END ==
LOC: REG 09:33
PROVIDERS: ATTENDING PHYSICIAN Nurse Practitioner; FAMILY PHYSICIAN Internal Medicine Geriatric Medicine
DX: I48.0 Paroxysmal atrial fibrillation (principal); I50.32 Chronic diastolic (congestive) heart failure
CPT/HCPCS: 36415; 80048; 83880

== ENCOUNTER → 2024-11-01 08:44 | Outpatient (REF) | payer MEDICARE, OTHER, SELFPAY | LOC: REG 08:44 | PROVIDERS: ATTENDING PHYSICIAN Internal Medicine Geriatric Medicine | DX: I10 Essential (primary) hypertension (principal); E78.2 Mixed hyperlipidemia; F41.9 Anxiety disorder, unspecified; K21.9 Gastro-esophageal reflux disease without esophagitis; I34.0 Nonrheumatic mitral (valve) insufficiency; E87.1 Hypo-osmolality and hyponatremia; E04.1 Nontoxic single thyroid nodule; Z13.89 Encounter for screening for other disorder; R74.8 Abnormal levels of other serum enzymes; R53.1 Weakness; Z68.25 Body mass index [BMI] 25.0-25.9, adult; R73.01 Impaired fasting glucose; I50.31 Acute diastolic (congestive) heart failure; I48.0 Paroxysmal atrial fibrillation | CPT/HCPCS: 83993 ==

== ENCOUNTER → 2024-11-07 13:06 | Outpatient (REF) | payer MEDICARE, OTHER, SELFPAY | LOC: RAD 13:06 | PROVIDERS: ATTENDING PHYSICIAN Internal Medicine Geriatric Medicine | DX: E04.1 Nontoxic single thyroid nodule (principal) | CPT/HCPCS: 76536 ==

== ENCOUNTER → 2024-11-08 08:52 | Outpatient (REF) | payer MEDICARE, OTHER, SELFPAY | LOC: RCS 08:52 | PROVIDERS: ATTENDING PHYSICIAN Nurse Practitioner; FAMILY PHYSICIAN Internal Medicine Geriatric Medicine | DX: I48.0 Paroxysmal atrial fibrillation (principal); I50.32 Chronic diastolic (congestive) heart failure; I34.0 Nonrheumatic mitral (valve) insufficiency | CPT/HCPCS: 93306 ==

== ENCOUNTER 2024-11-10 09:35 | Emergency (ER) | payer MEDICARE, OTHER, SELFPAY ==
[2024-11-10 09:43] VITALS: BP 155/79
--- NOTE | 2024-11-10 10:02 | ED.GENMED ---
History of Present Illness
General
Chief Complaint: Cardiac Symptoms
Time Seen by Provider: 11/10/24 09:54
History of Present Illness
History of Present Illness:
Patient is a 89-year-old woman with history of A-fib on Eliquis, hypertension, hyperlipidemia, HFpEF on Lasix Sunday through Sunday presenting to the emergency room with chest pain shortness of breath. Patient states that she has had left-sided
chest pain for the past week. It is persistent. It is not pleuritic. It is not exertional. She is also noted that she has shortness of breath. Worse upon laying and with exertion. She went to her primary care doctor who noticed some crackles
in her lungs and sent her to the emergency department for further evaluation. She states that she is at her dry weight currently. No fevers chills. No URI symptoms. She has noticed mild leg swelling. She has not missed her Lasix that is on her
schedule Sunday through Sunday. She has not missed her Eliquis.
Past History
Past History
ED Past Medical History: Arrthythmia (Atrial fibrillation), GERD, HTN, Hypothyroidism and Other (back pain); Negative Cancer
ED Past Surgical History: Gynecological, Orthopedic and Tonsilectomy
Social History
Tobacco: Non-smoker
Alcohol: None
Drug: None
Personal:
Living: alone
Employment: Retired
Family History
Family History: CAD (Son with CAD)
Phy Exam
Physical Exam
Physical Exam:
GENERAL: in no acute distress
HEENT: normocephalic, extraocular movements intact, moist oral mucosa
NECK: normal inspection
RESPIRATORY: no respiratory distress, crackles at bases
CARDIOVASCULAR: regular rate and rhythm
ABDOMEN/: soft, non-distended, non-tender to palpation, no rebound or guarding
EXTREMITIES: non-tender, mild pitting edema bilaterally
NEUROLOGIC: awake and alert, moves all extremities
SKIN: warm
Course
Orders/Labs/Results
Orders:
Orders
11/10/24 09:47
Electrocardiogram (*1) Urgent
Reason for Study: Chest Pain
EKG- Treatment ONCE
11/10/24 10:02
CR Chest - 2 Views Urgent
Comment:
Reason For Exam: sob
11/10/24 10:09
Complete Blood Count/With Diff Urgent
Comprehensive Metabolic Panel Urgent
NT-proBNP Urgent
Troponin I Urgent
11/10/24 11:32
Acetaminophen [Tylenol] 650 mg PO NOW STA
Abnormal Lab Results
11/10/24
10:09
RBC 3.61 L 10^6/uL
(4.20-5.40)
Hgb 11.7 L g/dL
(12.0-16.0)
Hct 35.0 L %
(37.0-47.0)
MCH 32.4 H pg
(27.0-31.0)
Abs Immat Gran (auto) 0.1 H 10^3/uL
(0-0.05)
Absolute Neuts (auto) 7.0 H 10^3/uL
(1.4-6.5)
Absolute Lymphs (auto) 1.0 L 10^3/uL
(1.2-3.4)
Absolute Monos (auto) 1.4 H 10^3/uL
(0.1-0.6)
Immature Gran % 0.6 H %
(0-0.5)
Lymphocytes % 10.2 L %
(20.5-51.1)
Monocytes % 14.3 H %
(1.7-9.3)
Sodium 134 L mmol/L
(135-145)
BUN 29 H mg/dl
(7-17)
Creatinine 1.2 H mg/dL
(0.6-1.0)
Glucose 123 H mg/dl
(70-99)
AST 40 H U/L
(14-36)
Alkaline Phosphatase 134 H U/L
(38-126)
11/10/24 10:09
11/10/24 10:09
Vital Signs
Initial and Last Documented VS:
Initial Vital Signs
Temp Pulse Resp BP Pulse Ox
98.1 F 62 16 155/79 97
11/10/24 09:43 11/10/24 09:43 11/10/24 09:43 11/10/24 09:43 11/10/24 09:43
Last Documented Vital Signs
Temp Pulse Resp BP Pulse Ox
98.1 F 60 18 147/85 95
11/10/24 09:43 11/10/24 11:15 11/10/24 11:15 11/10/24 11:00 11/10/24 11:15
MDM/Problems Addressed
Differential Diagnosis Includes:
Patient is a 89-year-old female with history of A-fib on Eliquis, HFpEF on Lasix Sunday through Sunday presented to the emergency department chest pain shortness of breath. Vitals unremarkable and exam does show crackles at the bases as well as
mild pitting edema. Differential consists of CHF exacerbation versus atypical ACS versus pneumonia though less likely. Considered PE given the chest pain however she is not tachycardic or hypoxic and is compliant with her Eliquis. Will proceed
with blood work and chest x-ray. EKG per my interpretation normal sinus rhythm.
*Critical Care Note
Total Time (30-74mins, 75-104mins- exclusive of procedures): Not Applicable
Update Note
Update Note:
Chest x-ray per my interpretation consistent with vascular congestion. No obvious pleural effusion. Blood work does show elevated BNP. Her baseline is 1500. After discussion with cardiology will increase Lasix to 40 mg for the next 3 doses.
They will call to schedule an appointment for this week. All questions answered. Patient stable for discharge
ED Attending Note
-
Portions of this chart may have been created with voice recognition software.� Occasional wrong word or��sound alike� substitutions may have occurred due to the inherent limitations of voice recognition software.
Discharge Plan
Departure
Patient Disposition: Home (Routine Discharge)
Date of Disposition: 11/10/24
Time of Disposition: 11:32
Patient with high blood pressure during this ER visit?: No
Discharge Problem:
CHF exacerbation
Instructions: *[facility] Heart Failure Instructions
Prescriptions:
New
furosemide [Lasix] 40 mg tablet
40 mg PO DAILY Qty: 3 0RF
No Action
cholecalciferol (vitamin D3) 1,000 UNIT tablet
1,000 unit PO DAILY
spironolactone 25 mg Tablet
12.5 mg PO DAILY
furosemide 20 mg Tablet
20 mg PO MOWEFR
Eliquis 5 mg Tablet
5 mg PO BID
atorvastatin [Lipitor] 20 mg Tablet
20 mg PO HS
atenolol 25 mg Tablet
25 mg PO BID
acetaminophen-codeine 300-30 mg Tablet
1 tab PO PRN PRN (Reason: PAIN)
furosemide 20 mg Tablet
20 mg PO DAILY
Pepcid Complete 10-800-165 mg Tablet,Chewable
1 tab PO DAILYPRN PRN (Reason: INDIGESTION)
lorazepam 0.5 MG tablet
0.5 mg PO DAILYPRN PRN (Reason: anxiety)
Referrals:
Tyler Cabral MD [Family Provider] -
Activity Restrictions/Additional Instructions:
You were seen in the Emergency Department today for shortness of breath. We did increase your Lasix to 40 mg. I did give you 3 doses. Please follow-up with your hand striper. If they do not call you to schedule an appointment, please call them
to schedule an appointment for this week.
We would like for you to follow up with your primary care physician for further evaluation. If you experience fever, worsening of your symptoms, or develop any other new or concerning symptoms, please return to the Emergency Department immediately.
Please see the attached sheet for additional information.
Interventions
Interventions:
*Risk Screen - Suicide Last Done: 11/10/24 10:00
*Neglect/Abuse Screening Last Done: 11/10/24 10:00
ED- Pulmonary Assessment Last Done: 11/10/24 10:30
ED- Cardiac Assessment Last Done: 11/10/24 10:30
Discharge Date and Time
Print Language: FAROESE
[2024-11-10 10:25] LABS: % Basophils 0.6 % (0-2); % Eosinophils 3.2 % (0-6); % Immature Granulocytes 0.6 % (0-0.5); % Lymphocytes 10.2 % (20.5-51.1); % Monocytes 14.3 % (1.7-9.3); % Neutrophils 71.1 % (42.2-75.2); Absolute Basophils 0.1 10^3/uL (0-0.2); Absolute Eosinophils 0.3 10^3/uL (0-0.7); Absolute Immature Granulocytes 0.1 10^3/uL (0-0.05); Absolute Monocytes 1.4 10^3/uL (0.1-0.6); Hemoglobin 11.7 g/dL (12.0-16.0); Mean Corp Hgb Conc. 33.4 g/dL (33.0-37.0); Mean Corpuscular Hgb 32.4 pg (27.0-31.0); Mean Platelet Volume 9.2 fL (7.4-10.4); Nucleated Red Blood Cells % 0 %; Platelet Count 289 10^3/uL (130-400); Red Blood Cell Count 3.61 10^6/uL (4.20-5.40); Red Cell Dist. Width 12.2 % (11.5-14.5); White Blood Cell Count 9.9 10^3/uL (4.8-10.8)
[2024-11-10 10:36] LABS: ALT (SGPT) 33 U/L (0-35); AST (SGOT) 40 U/L (14-36); Albumin 4.2 g/dl (3.5-5.0); Alkaline Phosphatase 134 U/L (38-126); Blood Urea Nitrogen 29 mg/dl (7-17); Calcium 9.1 mg/dl (8.4-10.2); Carbon Dioxide 23 mmol/L (22-30); Chloride 100 mmol/L (98-107); Glucose 123 mg/dl (70-99); Potassium 4.4 mmol/L (3.5-5.1); Sodium 134 mmol/L (135-145); Total Protein 7.7 g/dl (6.3-8.2); eGFR 43.54
[2024-11-10 10:48] LABS: NT-proBNP 2690 pg/ml; Troponin I < 0.012 ng/ml
[2024-11-10 11:00] VITALS: BP 147/85
[2024-11-10] MEDS: TYLENOL 650 MG PO (11:46)
== END 2024-11-10 12:18 | disposition home or self-care (01) ==
LOC: EMR 09:35
PROVIDERS: EMERGENCY PHYSICIAN Student in an Organized Health Care Education/Training Program; FAMILY PHYSICIAN Internal Medicine Geriatric Medicine
DX: I11.0 Hypertensive heart disease with heart failure (principal); I50.32 Chronic diastolic (congestive) heart failure; I48.91 Unspecified atrial fibrillation; E78.5 Hyperlipidemia, unspecified; E03.9 Hypothyroidism, unspecified; K21.9 Gastro-esophageal reflux disease without esophagitis; Z79.01 Long term (current) use of anticoagulants; Z79.899 Other long term (current) drug therapy
CPT/HCPCS: 99285; 71046; 80053; 83880; 84484; 85025; 93005

== ENCOUNTER → 2024-11-24 15:23 | Outpatient (REF) | payer MEDICARE, OTHER, SELFPAY ==
[2024-11-24 16:42] LABS: Blood Urea Nitrogen 37 mg/dl (7-17); Calcium 9.1 mg/dl (8.4-10.2); Carbon Dioxide 27 mmol/L (22-30); Chloride 97 mmol/L (98-107); Glucose 102 mg/dl (70-99); Potassium 4.6 mmol/L (3.5-5.1); Sodium 132 mmol/L (135-145); eGFR 43.54
[2024-11-24 16:47] LABS: NT-proBNP 3330 pg/ml
== END ==
LOC: REG 15:23
PROVIDERS: ATTENDING PHYSICIAN Internal Medicine Cardiovascular Disease; FAMILY PHYSICIAN Internal Medicine Geriatric Medicine
DX: I50.31 Acute diastolic (congestive) heart failure (principal); I10 Essential (primary) hypertension; E78.2 Mixed hyperlipidemia; F41.9 Anxiety disorder, unspecified; K21.9 Gastro-esophageal reflux disease without esophagitis; E78.00 Pure hypercholesterolemia, unspecified; I34.0 Nonrheumatic mitral (valve) insufficiency; E87.1 Hypo-osmolality and hyponatremia; R06.02 Shortness of breath; I48.0 Paroxysmal atrial fibrillation; R73.01 Impaired fasting glucose; Z13.89 Encounter for screening for other disorder; Z68.25 Body mass index [BMI] 25.0-25.9, adult; R53.1 Weakness; E04.1 Nontoxic single thyroid nodule
CPT/HCPCS: 36415; 71046; 80048; 83880

== ENCOUNTER 2024-11-27 19:44 | Emergency (ER) | payer MEDICARE, OTHER, SELFPAY ==
[2024-11-27] VITALS (7 sets, daily range): BP systolic 120–151; BP diastolic 60–106; PULSE 72–79; BMI 27.7
--- NOTE | 2024-11-27 20:16 | ED.GENMED ---
History of Present Illness
General
Chief Complaint: Abdominal Symptoms
Source: patient
Time Seen by Provider: 11/27/24 20:01
History of Present Illness
History of Present Illness:
This patient is a very pleasant 89-year-old female that presents emergency department with multiple complaints most of which have been longstanding. She states that for some time whenever she eats she has to have a bowel movement almost immediately
after eating. This is not loose, black, or bloody. She saw her doctor about this was told she has 'inflammation of the intestine', and advised to take a probiotic which she has been doing. She has an appoint with GI in January and she is on the
'cancellation list', meaning that she may get an earlier appointment. She also notes that she had discomfort under her left breast that was going on for about a month. Incidentally, she was prescribed amoxicillin for tooth infection and since
starting the antibiotics she no longer has this pain under her breast. She denies chest pain otherwise. She denies new shortness of breath, new leg swelling, back pain, headache. Patient started midodrine on Sunday because of what she describes
as low blood pressure. On Sunday at around 4:30 AM she had an episode of nonbloody diarrhea. She took Imodium and states that the diarrhea has resolved, last episode of slight diarrhea was this morning. She is eating and drinking as usual.
However, tonight while standing in the kitchen she noted she felt lightheaded which prompted her visit here. She denies associated palpitations, vertigo or sense of movement/spinning, severe headache, neck pain, visual changes, numbness, focal
weakness, or other complaints. She has not taken midodrine since Sunday.
Past History
Past History
ED Past Medical History: Arrthythmia (Atrial fibrillation), GERD, HTN, Hypothyroidism and Other (back pain); Negative Cancer
ED Past Surgical History: Gynecological, Orthopedic and Tonsilectomy
Social History
Tobacco: Non-smoker
Alcohol: None
Drug: None
Personal:
Living: with family
Employment: Retired
Family History
Family History: CAD (Son with CAD)
Phy Exam
Physical Exam
Physical Exam:
GENERAL: Alert , in no apparent distress, extremely well-appearing
EYE: pupils equal and reactive
NECK: Supple, no significant adenopathy.
ENT: o/p clr, mmm.
CARDIAC: Regular rate and rhythm .
LUNGS: Clear breath sounds bilaterally, no acute respiratory distress, no wheezes/rales/rhonchi
ABDOMEN: Soft, without focal tenderness, no r/g, no cvat
NEUROLOGICAL: Alert and oriented, no focal neuro deficits
SKIN: Warm and dry, skin intact.
MUSCULOSKELETAL: No edema, well perfused.
PSYCH: Normal and appropriate interaction.
Course
Orders/Labs/Results
Orders:
Orders
11/27/24 19:48
EKG [Electrocardiogram (*1)] Urgent
Reason for Study: Abdominal Pain
Other Reason for Exam: SOB, low bp
CARDIOLOGY CONSULT Urgent
Consulting Provider: Favian Isidro
Was physician already notified: Yes
11/27/24 19:49
EKG- Treatment ONCE
11/27/24 20:16
Orthostatic VS- Treatment ONCE
11/27/24 20:44
Complete Blood Count/No Diff Urgent
Comprehensive Metabolic Panel Urgent
Abnormal Lab Results
11/27/24
20:44
WBC 12.0 H 10^3/uL
(4.8-10.8)
RBC 3.33 L 10^6/uL
(4.20-5.40)
Hgb 10.7 L g/dL
(12.0-16.0)
Hct 30.6 L %
(37.0-47.0)
MCH 32.1 H pg
(27.0-31.0)
Sodium 130 L mmol/L
(135-145)
Chloride 97 L mmol/L
(98-107)
BUN 31 H mg/dl
(7-17)
Creatinine 1.3 H mg/dL
(0.6-1.0)
Glucose 125 H mg/dl
(70-99)
11/27/24 20:44
11/27/24 20:44
Vital Signs
Initial and Last Documented VS:
Initial Vital Signs
Temp Pulse Resp BP Pulse Ox
98.4 F 85 20 135/61 95
11/27/24 19:47 11/27/24 19:47 11/27/24 19:47 11/27/24 19:47 11/27/24 19:47
Last Documented Vital Signs
Temp Pulse Resp BP Pulse Ox
98.4 F 78 18 125/62 90
11/27/24 19:47 11/27/24 20:50 11/27/24 20:50 11/27/24 20:50 11/27/24 20:50
*Critical Care Note
Total Time (30-74mins, 75-104mins- exclusive of procedures): Not Applicable
Update Note
Update Note:
Patient presents to the Emergency Department with __multiple complaints including lightheadedness
Number and Complexity of Problems Addressed at the Encounter
� Chronic conditions affecting care:
� Acute Exacerbation and/or Progression of Chronic Illness:
� Differential Diagnosis includes: But not limited to medication related effect, volume depletion, dehydration, electrolyte disturbance, etc. etc.
Amount and/or Complexity of Data to be Reviewed and Analyzed
� I performed an independent evaluation of and my interpretation is:
EKG: Read by me, normal sinus rhythm, normal rate, normal axis, no acute ischemia
CT:
Xrays:
Laboratory Studies: Nonspecific leukocytosis, (no findings to suggest infection such as fever, chills, sweats, infectious symptoms, etc.) slight decrease in baseline anemia, very slight decrease in baseline hyponatremia, kidney
function at near baseline.
Other:
� Review of other/old records reveals:
� Clinical information was obtained by an independent historian: Daughter who is bedside
� Prescriptions/Medications Considered but not given:
� Further testing considered but not performed:
Risk of Complications and/or Morbidity or Mortality of Patient Management
� Social determinants of health affecting care:
� Discussion with other providers (PCP, Hospitalists, Consultants, etc):
� Escalation of care including admission/observation vs risk of discharge considered: 9:56 PM patient remains well-appearing, no distress, abdomen soft and nontender, no chest pain, no shortness of breath. Orthostatics are
negative. Patient does have a few mild lab abnormalities, none of which specifically identify a reason for her symptoms, and none of which are severely abnormal or markedly newly abnormal. Nonetheless patient does require very close follow-up
regarding her progressive symptoms and these abnormalities. Labs are printed out for her and she was instructed to follow-up with her doctor tomorrow which she will do.
ED Attending Note
-
Portions of this chart may have been created with voice recognition software.� Occasional wrong word or��sound alike� substitutions may have occurred due to the inherent limitations of voice recognition software.
Discharge Plan
Departure
Patient Disposition: Home (Routine Discharge)
Date of Disposition: 11/27/24
Time of Disposition: 21:52
Patient with high blood pressure during this ER visit?: Yes
Condition: Good
Discharge Problem:
Light-headedness
Instructions: Dizziness in adults - ED discharge instructions, BLOOD PRESSURE
Prescriptions:
No Action
cholecalciferol (vitamin D3) 1,000 UNIT tablet
1,000 unit PO DAILY
spironolactone 25 mg Tablet
12.5 mg PO DAILY
furosemide 20 mg Tablet
20 mg PO MOWEFR
Eliquis 5 mg Tablet
5 mg PO BID
atorvastatin [Lipitor] 20 mg Tablet
20 mg PO HS
atenolol 25 mg Tablet
25 mg PO BID
acetaminophen-codeine 300-30 mg Tablet
1 tab PO PRN PRN (Reason: PAIN)
furosemide 20 mg Tablet
20 mg PO DAILY
Pepcid Complete 10-800-165 mg Tablet,Chewable
1 tab PO DAILYPRN PRN (Reason: INDIGESTION)
lorazepam 0.5 MG tablet
0.5 mg PO DAILYPRN PRN (Reason: anxiety)
furosemide [Lasix] 40 mg tablet
40 mg PO DAILY Qty: 3 0RF
Referrals:
Tyler Cabarl MD [Active] - Tomorrow
Activity Restrictions/Additional Instructions:
PLEASE SEE YOUR FAMILY DOCTOR TOMORROW. IF YOU DEVELOP CHEST PAIN OR PRESSURE, WORSENING SHORTNESS OF BREATH, PERSISTENT DIZZINESS, SEVERE HEADACHE, ABDOMINAL PAIN, VOMITING, OR OTHER WORRISOME SIGNS, PLEASE RETURN TO THE ER IMMEDIATELY. YOU HAD
SOME MILD LABORATORY ABNORMALITIES THAT REQUIRE ATTENTION. PLEASE BRING YOUR BLOOD WORK WITH YOU WHEN YOU SEE YOUR DOCTOR.
Interventions
Interventions:
*Risk Screen - Suicide Last Done: 11/27/24 19:47
*General Assessment Last Done: 11/27/24 19:47
*Neglect/Abuse Screening Last Done: 11/27/24 19:47
*ED- Fall Risk Assessment Last Done: 11/27/24 20:45
*ED COVID-19 Vaccine History Last Done: 11/27/24 20:45
XZ-Nvipdk-Fxvdblpukt Assessment Last Done: 11/27/24 20:49
Discharge Date and Time
Print Language: GREENLANDIC
[2024-11-27 21:05] LABS: Hematocrit 30.6 % (37.0-47.0); Hemoglobin 10.7 g/dL (12.0-16.0); Mean Corpuscular Hgb 32.1 pg (27.0-31.0); Mean Corpuscular Volume 91.9 fL (81.0-99.0); Mean Platelet Volume 8.6 fL (7.4-10.4); Platelet Count 311 10^3/uL (130-400); Red Blood Cell Count 3.33 10^6/uL (4.20-5.40); Red Cell Dist. Width 11.9 % (11.5-14.5)
[2024-11-27 21:25] LABS: ALT (SGPT) 20 U/L (0-35); AST (SGOT) 28 U/L (14-36); Albumin 3.7 g/dl (3.5-5.0); Alkaline Phosphatase 98 U/L (38-126); Blood Urea Nitrogen 31 mg/dl (7-17); Calcium 8.8 mg/dl (8.4-10.2); Carbon Dioxide 22 mmol/L (22-30); Chloride 97 mmol/L (98-107); Estimated Creatinine Clearance 28 ml/min; Glucose 125 mg/dl (70-99); Potassium 4.3 mmol/L (3.5-5.1); Sodium 130 mmol/L (135-145); Total Bilirubin 0.8 mg/dl (0.2-1.3); Total Protein 7.3 g/dl (6.3-8.2); eGFR 39.55
== END 2024-11-27 22:16 | disposition home or self-care (01) ==
LOC: EMR 19:44
PROVIDERS: CONSULT PHYSICIAN Emergency Medicine; EMERGENCY PHYSICIAN Emergency Medicine; FAMILY PHYSICIAN Internal Medicine Geriatric Medicine
DX: R42 Dizziness and giddiness (principal); D72.829 Elevated white blood cell count, unspecified; D64.9 Anemia, unspecified; I48.91 Unspecified atrial fibrillation; E03.9 Hypothyroidism, unspecified; I10 Essential (primary) hypertension
CPT/HCPCS: 99284; 80053; 85027; 93005

== ENCOUNTER → 2024-11-29 10:49 | Outpatient (REF) | payer MEDICARE, OTHER, SELFPAY ==
[2024-11-29 11:30] LABS: % Basophils 0.9 % (0-2); % Eosinophils 5.2 % (0-6); % Immature Granulocytes 0.5 % (0-0.5); % Lymphocytes 8.6 % (20.5-51.1); % Monocytes 11.1 % (1.7-9.3); % Neutrophils 73.7 % (42.2-75.2); Absolute Basophils 0.1 10^3/uL (0-0.2); Absolute Eosinophils 0.6 10^3/uL (0-0.7); Absolute Immature Granulocytes 0.1 10^3/uL (0-0.05); Absolute Monocytes 1.3 10^3/uL (0.1-0.6); Absolute Neutrophils 8.3 10^3/uL (1.4-6.5); Hematocrit 35.6 % (37.0-47.0); Mean Corp Hgb Conc. 33.7 g/dL (33.0-37.0); Mean Corpuscular Hgb 32.3 pg (27.0-31.0); Mean Platelet Volume 8.8 fL (7.4-10.4); Nucleated Red Blood Cells % 0 %; Platelet Count 345 10^3/uL (130-400); Red Blood Cell Count 3.71 10^6/uL (4.20-5.40); White Blood Cell Count 11.3 10^3/uL (4.8-10.8)
[2024-11-29 11:45] LABS: Osmolality Serum 290 mOsm/kg (275-300)
[2024-11-29 11:54] LABS: ALT (SGPT) 20 U/L (0-35); AST (SGOT) 28 U/L (14-36); Albumin 3.7 g/dl (3.5-5.0); Alkaline Phosphatase 100 U/L (38-126); Blood Urea Nitrogen 37 mg/dl (7-17); Calcium 9.1 mg/dl (8.4-10.2); Carbon Dioxide 27 mmol/L (22-30); Chloride 97 mmol/L (98-107); Glucose 152 mg/dl (70-99); Lipase 186 U/L (23-300); Potassium 4.2 mmol/L (3.5-5.1); Sodium 132 mmol/L (135-145); Total Bilirubin 0.8 mg/dl (0.2-1.3); Total Protein 7.8 g/dl (6.3-8.2); eGFR 36.19
[2024-11-29 12:01] LABS: Osmolality Urine 352 mOsm/kg (300-900)
[2024-11-29 18:24] LABS: Urine Sodium 110 mmol/L (30-90)
== END ==
LOC: REG 10:49
PROVIDERS: ATTENDING PHYSICIAN Nurse Practitioner Family; FAMILY PHYSICIAN Internal Medicine Geriatric Medicine; REFERRING PHYSICIAN Internal Medicine Cardiovascular Disease
DX: I10 Essential (primary) hypertension (principal); E78.2 Mixed hyperlipidemia; F41.9 Anxiety disorder, unspecified; K21.9 Gastro-esophageal reflux disease without esophagitis; E87.1 Hypo-osmolality and hyponatremia; R06.02 Shortness of breath; I48.0 Paroxysmal atrial fibrillation; I50.31 Acute diastolic (congestive) heart failure; R73.01 Impaired fasting glucose; R10.12 Left upper quadrant pain
CPT/HCPCS: 36415; 80053; 83690; 83930; 83935; 84300; 85025

== ENCOUNTER 2024-11-29 19:21 | Emergency (ER) | payer MEDICARE, OTHER, SELFPAY ==
[2024-11-29 19:31] VITALS: BP 135/71
[2024-11-29 20:55] VITALS: BMI 24.6
[2024-11-29 20:57] VITALS: BP 166/70
[2024-11-29 21:26] LABS: Urine Albumin 1+ (Neg - Trace); Urine Bilirubin Negative (Negative); Urine Character Clear (Clear); Urine Color Yellow; Urine Glucose Negative (Negative); Urine Ketone Negative (Negative); Urine Leukocyte 3+ (Negative); Urine Nitrite Negative (Negative); Urine Occult Blood 4+ (Negative); Urine Specific Gravity 1.015 (<1.030); Urine Urobilinogen Negative (Neg - 1+)
--- NOTE | 2024-11-29 21:33 | ED.GENMED ---
History of Present Illness
General
Chief Complaint: Abdominal Pain
Source: patient
Exam Limitations: none
Time Seen by Provider: 11/29/24 20:26
Nursing documentation reviewed up to this point in time: agreed with
History of Present Illness
History of Present Illness:
89-year-old female past medical history of A-fib currently on Eliquis, hypertension hyperlipidemia presenting to the emergency department today with concerns of ongoing lower abdominal pain. This has been ongoing for the last 10 days or so. She
did have diarrhea preceding it. She claims the pain was slightly worse today which prompted her to come back to the ER. She has been to the ER few times in the last week. Denies any chest pain shortness of breath at this point.
Past History
Past History
ED Past Medical History: Arrthythmia (Atrial fibrillation), GERD, HTN, Hypothyroidism and Other (back pain); Negative Cancer
ED Past Surgical History: Gynecological, Orthopedic and Tonsilectomy
Social History
Tobacco: Non-smoker
Alcohol: None
Drug: None
Personal:
Living: with family
Employment: Retired
Family History
Family History: CAD (Son with CAD)
Review of Systems
Review of Systems
Allergies reviewed?: Yes
All Other Systems: ROS reviewed and negative except as documented in HPI and ROS
Phy Exam
Physical Exam
Physical Exam:
GENERAL: Alert , in no apparent distress
EYE: pupils equal and reactive
NECK: Supple, no significant adenopathy.
ENT: o/p clr, mmm.
CARDIAC: Regular rate and rhythm .
LUNGS: Clear breath sounds bilaterally, no acute respiratory distress, no wheezes/rales/rhonchi
ABDOMEN: Tenderness palpation to the left lower quadrant the abdomen otherwise soft benign.
NEUROLOGICAL: Alert and oriented, no focal neuro deficits
SKIN: Warm and dry, skin intact.
MUSCULOSKELETAL: No edema, well perfused.
PSYCH: Normal and appropriate interaction.
Course
Orders/Labs/Results
Orders:
Orders
11/29/24 20:58
CT Abd/Pel (IV only)-DH only Urgent
Comment:
Reason For Exam: llq pain
11/29/24 21:17
Urinalysis Reflex To Culture Urgent
Date Specimen was Collected: 11/29/24
Time Specimen was Collected: 21:15
Urine Microscopic Reflex Cult Urgent
Urine Culture Urgent
DEBBIE Source: U
Specimen Description:
Date Specimen was Collected: 11/29/24
Time Specimen was Collected: 21:15
Abnormal Lab Results
11/29/24
21:17
Ur Occult Blood Reflex 4+ A
(Negative)
Leukocyte Esterase Rfl 3+ A
(Negative)
Urine RBC 3-6 A /HPF
(0-2)
Urine Albumin (Reflex) 1+ A
(Neg - Trace)
Vital Signs
Initial and Last Documented VS:
Initial Vital Signs
Temp Pulse Resp BP Pulse Ox
98.1 F 77 20 135/71 96
11/29/24 19:31 11/29/24 19:31 11/29/24 19:31 11/29/24 19:31 11/29/24 19:31
Last Documented Vital Signs
Temp Pulse Resp BP Pulse Ox
98.1 F 77 20 158/75 93
11/29/24 19:31 11/29/24 19:31 11/29/24 19:31 11/29/24 22:00 11/29/24 22:30
MDM/Problems Addressed
MDM/Problems Addressed:
89-year-old female presenting to the emergency department today with concerns of lower abdominal discomfort mainly to the left lower quadrant. Has been ongoing over the past week or so. Vital signs are normal on arrival but does have reproducible
tenderness to the left lower quadrant. Labs unremarkable as an outpatient earlier today. Concerning ongoing unrelenting discomfort plan for CT scan for further assessment. CT scan without emergent findings other than possible constipation. She
was advised for increased fiber at home. Otherwise incidental finding of pancreatic cyst was explained to the patient. She was supplied a copy of her CT scan read was advised for close outpatient follow-up in this regard. Return precautions given.
*Critical Care Note
Total Time (30-74mins, 75-104mins- exclusive of procedures): Not Applicable
ED Attending Note
-
Portions of this chart may have been created with voice recognition software.� Occasional wrong word or��sound alike� substitutions may have occurred due to the inherent limitations of voice recognition software.
Discharge Plan
Departure
Patient Disposition: Home (Routine Discharge)
Date of Disposition: 11/29/24
Time of Disposition: 23:35
Patient with high blood pressure during this ER visit?: No
Condition: Good
Covid-19: Not Applicable
Discharge Problem:
Constipation, Pancreas cyst
Instructions: Constipation, Adult (DC)
Prescriptions:
No Action
cholecalciferol (vitamin D3) 1,000 UNIT tablet
1,000 unit PO DAILY
spironolactone 25 mg Tablet
12.5 mg PO DAILY
furosemide 20 mg Tablet
20 mg PO MOWEFR
Eliquis 5 mg Tablet
5 mg PO BID
atorvastatin [Lipitor] 20 mg Tablet
20 mg PO HS
atenolol 25 mg Tablet
25 mg PO BID
acetaminophen-codeine 300-30 mg Tablet
1 tab PO PRN PRN (Reason: PAIN)
furosemide 20 mg Tablet
20 mg PO DAILY
Pepcid Complete 10-800-165 mg Tablet,Chewable
1 tab PO DAILYPRN PRN (Reason: INDIGESTION)
lorazepam 0.5 MG tablet
0.5 mg PO DAILYPRN PRN (Reason: anxiety)
furosemide [Lasix] 40 mg tablet
40 mg PO DAILY Qty: 3 0RF
Referrals:
Tyler Cabral MD [Family Provider] -
Activity Restrictions/Additional Instructions:
You came to the emergency department today with concerns of ongoing lower abdominal pain. Here your reassuring assessment. Please follow-up closely for the pancreatic cyst that was listed on your CT read. Return for any worsening, new or
concerning symptoms.
Interventions
Interventions:
*Risk Screen - Suicide Last Done: 11/29/24 20:55
*General Assessment Last Done: 11/29/24 19:31
*Neglect/Abuse Screening Last Done: 11/29/24 20:55
*ED- Fall Risk Assessment Last Done: 11/29/24 20:55
*ED COVID-19 Vaccine History Last Done: 11/29/24 20:55
LG-Tzptbb-Xkocuqcwcs Assessment Last Done: 11/29/24 22:30
Discharge Date and Time
Print Language: WELSH
[2024-11-29 21:35] LABS: Urine Squamous Cell 16-20 /LPF (Few)
[2024-11-29 22:00] VITALS: BP 158/75
== END 2024-11-29 23:46 | disposition home or self-care (01) ==
LOC: EMR 19:21
PROVIDERS: Physician Assistant; EMERGENCY PHYSICIAN Emergency Medicine; FAMILY PHYSICIAN Internal Medicine Geriatric Medicine
DX: K59.00 Constipation, unspecified (principal); K86.2 Cyst of pancreas; I48.91 Unspecified atrial fibrillation; I10 Essential (primary) hypertension; E03.9 Hypothyroidism, unspecified; E78.5 Hyperlipidemia, unspecified; F41.9 Anxiety disorder, unspecified; F32.A Depression, unspecified; M19.90 Unspecified osteoarthritis, unspecified site; R73.03 Prediabetes; K21.9 Gastro-esophageal reflux disease without esophagitis; Z87.01 Personal history of pneumonia (recurrent); Z79.01 Long term (current) use of anticoagulants; Z88.8 Allergy status to other drugs, medicaments and biological substances; Z88.1 Allergy status to other antibiotic agents; Z91.040 Latex allergy status
CPT/HCPCS: 99284; 74177; 81003; 81015; 87086; Q9967

== ENCOUNTER → 2024-12-15 08:58 | Outpatient (REF) | payer MEDICARE, OTHER, SELFPAY | LOC: RAD 08:58 | PROVIDERS: ATTENDING PHYSICIAN Internal Medicine Geriatric Medicine | DX: I10 Essential (primary) hypertension (principal); J47.9 Bronchiectasis, uncomplicated; J96.10 Chronic respiratory failure, unspecified whether with hypoxia or hypercapnia; M79.10 Myalgia, unspecified site; E78.2 Mixed hyperlipidemia; F41.9 Anxiety disorder, unspecified; K21.9 Gastro-esophageal reflux disease without esophagitis; E78.00 Pure hypercholesterolemia, unspecified; I34.0 Nonrheumatic mitral (valve) insufficiency; E87.1 Hypo-osmolality and hyponatremia; R06.02 Shortness of breath; Z13.89 Encounter for screening for other disorder; I48.0 Paroxysmal atrial fibrillation; I50.31 Acute diastolic (congestive) heart failure; R73.01 Impaired fasting glucose; Z68.25 Body mass index [BMI] 25.0-25.9, adult; R53.1 Weakness; E04.1 Nontoxic single thyroid nodule; J21.9 Acute bronchiolitis, unspecified | CPT/HCPCS: 71046 ==

== ENCOUNTER → 2024-12-18 10:18 | Outpatient (REF) | payer MEDICARE, OTHER, SELFPAY ==
[2024-12-18 11:31] LABS: Blood Urea Nitrogen 51 mg/dl (7-17); Calcium 9.4 mg/dl (8.4-10.2); Carbon Dioxide 29 mmol/L (22-30); Chloride 98 mmol/L (98-107); Glucose 131 mg/dl (70-99); Phosphorus 4.5 mg/dl (2.5-4.5); Potassium 4.7 mmol/L (3.5-5.1); Sodium 137 mmol/L (135-145); eGFR 28.67
== END ==
LOC: REG 10:18
PROVIDERS: ATTENDING PHYSICIAN Internal Medicine Geriatric Medicine; OTHER PHYSICIAN Internal Medicine Cardiovascular Disease
DX: I10 Essential (primary) hypertension (principal); J47.9 Bronchiectasis, uncomplicated; J96.10 Chronic respiratory failure, unspecified whether with hypoxia or hypercapnia; M79.10 Myalgia, unspecified site; E78.2 Mixed hyperlipidemia; F41.9 Anxiety disorder, unspecified; K21.9 Gastro-esophageal reflux disease without esophagitis; E78.00 Pure hypercholesterolemia, unspecified; I34.0 Nonrheumatic mitral (valve) insufficiency; E87.1 Hypo-osmolality and hyponatremia; R06.02 Shortness of breath; Z13.89 Encounter for screening for other disorder; I48.0 Paroxysmal atrial fibrillation; I50.31 Acute diastolic (congestive) heart failure; R73.01 Impaired fasting glucose; Z68.25 Body mass index [BMI] 25.0-25.9, adult; R53.1 Weakness; E04.1 Nontoxic single thyroid nodule; J21.9 Acute bronchiolitis, unspecified
CPT/HCPCS: 36415; 80069

== ENCOUNTER → 2025-01-23 07:22 | Outpatient (REF) | payer MEDICARE, OTHER, SELFPAY | LOC: PAVMRI 07:22 | PROVIDERS: ATTENDING PHYSICIAN Internal Medicine Geriatric Medicine | DX: R74.8 Abnormal levels of other serum enzymes (principal); R16.0 Hepatomegaly, not elsewhere classified | CPT/HCPCS: 74183; A9575 ==

== ENCOUNTER → 2025-02-11 08:02 | Outpatient (REF) | payer MEDICARE, OTHER, SELFPAY ==
[2025-02-11 09:34] LABS: Blood Urea Nitrogen 44 mg/dl (7-17); Calcium 9.2 mg/dl (8.4-10.2); Carbon Dioxide 31 mmol/L (22-30); Chloride 101 mmol/L (98-107); Glucose 105 mg/dl (70-99); Potassium 4.5 mmol/L (3.5-5.1); Sodium 139 mmol/L (135-145); eGFR 33.31
== END ==
LOC: REG 08:02
PROVIDERS: ATTENDING PHYSICIAN Internal Medicine Cardiovascular Disease; FAMILY PHYSICIAN Internal Medicine Geriatric Medicine
DX: I10 Essential (primary) hypertension (principal)
CPT/HCPCS: 36415; 80048

== ENCOUNTER 2025-04-02 09:43 | Emergency (ER) | payer MEDICARE, OTHER, SELFPAY ==
[2025-04-02 09:49] VITALS: BMI 28.6
[2025-04-02 09:52] VITALS: BP 163/78
[2025-04-02 10:00] VITALS: BP 155/99
--- NOTE | 2025-04-02 10:10 | ED.GENMED ---
History of Present Illness
General
Chief Complaint: Fainting Sensation
Time Seen by Provider: 04/02/25 09:44
History of Present Illness
History of Present Illness:
89-year-old female presents to the ER for evaluation of a 'weird' sensation that occurred while she was seated watching television after having just completed eating a bagel with peanut butter. Patient states that she has been under an undue amount
of stress this week with 2 funerals and her son undergoing surgery. 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
intermittently lightheaded over the last week or so. She reports that she did take her blood pressure yesterday and multiple readings between 100 and 110 systolic. No recent change in her medications. She takes her daily atenolol at bedtime. She
reports that she has been eating and drinking normally. She denies any focal weakness. No recent change in vision. She reports no change in her usual daily pain 'I am always in pain.' Patient reports that the unusual sensation in her head has
resolved prior to evaluation in the emergency department although she has some residual posterior head discomfort, again affirming that this is not unusual from her baseline discomforts. She denies chest pain or palpitations. She has mild
occasional exertional dyspnea which she relates to her asthma at which has been an ongoing problem for a long time. Patient reports chronic swelling to her left lower extremity unchanged from baseline.
Past History
Past History
ED Past Medical History: Arrthythmia (Atrial fibrillation), GERD, HTN, Hypothyroidism and Other (back pain); Negative Cancer
ED Past Surgical History: Gynecological, Orthopedic and Tonsilectomy
Social History
Tobacco: Non-smoker
Alcohol: None
Drug: None
Personal:
Living: with family
Employment: Retired
Family History
Family History: CAD (Son with CAD)
Phy Exam
Physical Exam
Physical Exam:
Vital signs reviewed, patient is hypertensive, awake, alert, in no acute distress, head is normocephalic atraumatic, PERRL, EOMI, mucous membranes moist, speech is clear, heart regular rate and rhythm without murmurs or ectopy, lungs are clear to
auscultation without wheezes rales or rhonchi, no JVD, no carotid bruits, 2+ DP pulses present symmetric bilateral feet, 2+ edema present right ankle compared to trace edema of left ankle, no rashes, GCS is 15, no dysdiadochokinesia, no ataxia, no
pronator drift. NIH stroke scale 0
Course
Orders/Labs/Results
Orders:
Orders
04/02/25 09:50
Electrocardiogram (*1) Urgent
Reason for Study: Syncope
EKG- Treatment ONCE
04/02/25 09:59
Complete Blood Count/With Diff Urgent
Comprehensive Metabolic Panel Urgent
Troponin I Urgent
04/02/25 10:01
CR Chest - 2 Views Urgent
Comment:
Reason For Exam: near syncope
04/02/25 10:02
CT Head W/o Iv Contrast Urgent
Comment:
Reason For Exam: near syncope/headache
04/02/25 10:40
Urinalysis Reflex To Culture Urgent
Date Specimen was Collected: 04/02/25
Time Specimen was Collected: 10:19
Urine Microscopic Reflex Cult Urgent
04/02/25 10:57
Orthostatic VS- Treatment ONCE
Abnormal Lab Results
04/02/25 04/02/25
09:59 10:40
RBC 3.60 L 10^6/uL
(4.20-5.40)
Hgb 11.7 L g/dL
(12.0-16.0)
Hct 34.7 L %
(37.0-47.0)
MCH 32.5 H pg
(27.0-31.0)
Absolute Lymphs (auto) 1.1 L 10^3/uL
(1.2-3.4)
Absolute Monos (auto) 0.8 H 10^3/uL
(0.1-0.6)
Lymphocytes % 14.1 L %
(20.5-51.1)
Monocytes % 10.4 H %
(1.7-9.3)
BUN 32 H mg/dl
(7-17)
Creatinine 1.3 H mg/dL
(0.6-1.0)
Glucose 194 H mg/dl
(70-99)
AST 51 H U/L
(14-36)
ALT 44 H U/L
(0-35)
Alkaline Phosphatase 135 H U/L
(38-126)
Ur Occult Blood Reflex 2+ A
(Negative)
Urine RBC 7-10 A /HPF
(0-2)
04/02/25 09:59
04/02/25 09:59
Troponin negative. Kidney function preserved. No significant lab dyscrasia
Vital Signs
Initial and Last Documented VS:
Initial Vital Signs
Pulse Resp BP Pulse Ox
76 14 163/78 94
04/02/25 09:52 04/02/25 09:52 04/02/25 09:52 04/02/25 09:52
Last Documented Vital Signs
Temp Pulse Resp BP Pulse Ox
97.8 F 71 18 141/61 98
04/02/25 12:31 04/02/25 12:31 04/02/25 12:31 04/02/25 12:31 04/02/25 12:31
MDM/Problems Addressed
Differential Diagnosis Includes:
Differential diagnosis to consider but not limited to occult infection, electrolyte dyscrasia, occult intracranial hemorrhage, orthostatic hypotension along with other etiologies considered
Chronic conditions affecting care:
Hypertension, advanced age, long-term use of anticoagulation due to prior atrial fibrillation
Comment
Comment:
Labs reviewed, white blood count very reassuring at 7.9. Hemoglobin 11.7, similar to prior from 320 11/04/2011,No significant electrolyte dyscrasia, kidney function preserved, mild elevation of blood sugar
*Radiology
Radiology exam reviewed: preliminary read by ED provider (I independently viewed and interpreted CT head showing diffuse atrophy, no gross hemorrhage, no midline shift) and other (I dependently viewed and interpreted portable chest x-ray showing
hyperinflation, normal cardiac silhouette, no infiltrates)
*Pulse Oximetry
SaO2: 94
Oxygen Mode of Delivery: Room air
Patient hypoxic: no
*EKG
Interpreted by ED Provider?: Yes (I independently viewed and interpreted twelve-lead EKG showing normal sinus rhythm, rate 76, normal axis, mild prolonged QT measured at 490 ms, no ST elevation, this is a nonspecific EKG without significant change
compared to prior11/27/2024)
*Behavioral Services Tech Interpretation
Rate: normal
Interpretation: normal
Heart Rate: 79
Rhythm: sinus
*Critical Care Note
Total Time (30-74mins, 75-104mins- exclusive of procedures): Not Applicable
Update Note
Update Note:
Patient resting comfortably throughout time in the ER. Daughter is now present at bedside. I discussed with him all test results along with nonspecific etiology of symptoms today, no acute worrisome process seen on CT head, x-ray or labs. I
discussed with them benefit of follow-up with primary care physician for reevaluation and further care as symptoms are likely multifactorial in etiology. They expressed understanding of discharge plan. Patient was able to ambulate with cane as is
her usual mode of ambulation. She had no questions prior to leaving the department
ED Attending Note
-
Portions of this chart may have been created with voice recognition software.� Occasional wrong word or��sound alike� substitutions may have occurred due to the inherent limitations of voice recognition software.
Discharge Plan
Departure
Patient Disposition: Home (Routine Discharge)
Date of Disposition: 04/02/25
Time of Disposition: 12:05
Patient with high blood pressure during this ER visit?: No
Discharge Problem:
Intermittent lightheadedness, Elevated LFTs
Instructions: Near Fainting (DC)
Prescriptions:
No Action
cholecalciferol (vitamin D3) 1,000 UNIT tablet
1,000 unit PO DAILY
spironolactone 25 mg Tablet
12.5 mg PO DAILY
furosemide 20 mg Tablet
20 mg PO MOWEFR
Eliquis 5 mg Tablet
5 mg PO BID
atorvastatin [Lipitor] 20 mg Tablet
20 mg PO HS
atenolol 25 mg Tablet
25 mg PO BID
acetaminophen-codeine 300-30 mg Tablet
1 tab PO PRN PRN (Reason: PAIN)
furosemide 20 mg Tablet
20 mg PO DAILY
Pepcid Complete 10-800-165 mg Tablet,Chewable
1 tab PO DAILYPRN PRN (Reason: INDIGESTION)
lorazepam 0.5 MG tablet
0.5 mg PO DAILYPRN PRN (Reason: anxiety)
furosemide [Lasix] 40 mg tablet
40 mg PO DAILY Qty: 3 0RF
Referrals:
Tyler Cabral MD [Family Provider, Internal Medicine]
Activity Restrictions/Additional Instructions:
Please contact your primary care physician to schedule appointment for reevaluation and further care. Please try to limit use of Tylenol and abstain from using your atorvastatin until you are seen in follow-up as this may be affecting your liver
functions. Continue your current medications. Return to the ER for any concerns
Interventions
Interventions:
*Risk Screen - Suicide Last Done: 04/02/25 09:52
*General Assessment Last Done: 04/02/25 09:52
*Neglect/Abuse Screening Last Done: 04/02/25 09:52
*ED- Fall Risk Assessment Last Done: 04/02/25 09:52
*ED COVID-19 Vaccine History Last Done: 04/02/25 09:52
*Nursing Disposition Last Done: 04/02/25 12:31
ED- Cardiac Assessment Last Done: 04/02/25 09:52
ED- Neurological Assessment Last Done: 04/02/25 09:52
Discharge Date and Time
Discharge Date/Time: 04/02/25 12:33
Print Language: UPPER SORBIAN
[2025-04-02 10:16] LABS: Hematocrit 34.7 % (37.0-47.0); Hemoglobin 11.7 g/dL (12.0-16.0); Mean Corp Hgb Conc. 33.7 g/dL (33.0-37.0); Mean Corpuscular Volume 96.4 fL (81.0-99.0); Nucleated Red Blood Cells % 0 %; Platelet Count 248 10^3/uL (130-400); Red Cell Dist. Width 13.7 % (11.5-14.5)
[2025-04-02 10:29] LABS: ALT (SGPT) 44 U/L (0-35); AST (SGOT) 51 U/L (14-36); Albumin 4.0 g/dl (3.5-5.0); Alkaline Phosphatase 135 U/L (38-126); Blood Urea Nitrogen 32 mg/dl (7-17); Calcium 8.9 mg/dl (8.4-10.2); Carbon Dioxide 29 mmol/L (22-30); Chloride 101 mmol/L (98-107); Estimated Creatinine Clearance 29 ml/min; Glucose 194 mg/dl (70-99); Potassium 4.0 mmol/L (3.5-5.1); Sodium 136 mmol/L (135-145); Total Protein 8.0 g/dl (6.3-8.2); eGFR 39.55
[2025-04-02 10:45] LABS: Troponin I < 0.012 ng/ml
[2025-04-02 10:58] VITALS: BP 126/53
[2025-04-02 10:58] LABS: Urine Character Clear (Clear)
[2025-04-02 11:00] VITALS: BP 126/53; BP 133/60; BP 135/63; PULSE 72; PULSE 77; PULSE 80
[2025-04-02 11:02] VITALS: BP 133/60
[2025-04-02 12:31] VITALS: BP 141/61
[2025-04-02 12:34] LABS: Urine White Cell 0-2 /HPF (0-5)
== END 2025-04-02 12:33 | disposition home or self-care (01) ==
LOC: EMR 09:43
PROVIDERS: EMERGENCY PHYSICIAN Emergency Medicine; FAMILY PHYSICIAN Internal Medicine Geriatric Medicine
DX: R42 Dizziness and giddiness (principal); R79.89 Other specified abnormal findings of blood chemistry; E03.9 Hypothyroidism, unspecified; I10 Essential (primary) hypertension; I48.91 Unspecified atrial fibrillation; J45.909 Unspecified asthma, uncomplicated; Z79.899 Other long term (current) drug therapy
CPT/HCPCS: 99285; 70450; 71046; 80053; 81003; 81015; 84484; 85025; 93005

== ENCOUNTER → 2025-04-27 07:03 | Outpatient (REF) | payer MEDICARE, OTHER, SELFPAY ==
[2025-04-27 09:03] LABS: Hematocrit 34.7 % (37.0-47.0); Hemoglobin 11.3 g/dL (12.0-16.0); Mean Corp Hgb Conc. 32.6 g/dL (33.0-37.0); Mean Corpuscular Volume 97.2 fL (81.0-99.0); Nucleated Red Blood Cells % 0 %; Platelet Count 264 10^3/uL (130-400); Red Cell Dist. Width 13.3 % (11.5-14.5)
[2025-04-27 09:45] LABS: ALT (SGPT) 16 U/L (0-35); AST (SGOT) 26 U/L (14-36); Albumin 3.8 g/dl (3.5-5.0); Alkaline Phosphatase 68 U/L (38-126); Blood Urea Nitrogen 45 mg/dl (7-17); Calcium 9.0 mg/dl (8.4-10.2); Carbon Dioxide 29 mmol/L (22-30); Chloride 105 mmol/L (98-107); Glucose 99 mg/dl (70-99); Sodium 137 mmol/L (135-145); Total Protein 7.7 g/dl (6.3-8.2); eGFR 36.19
[2025-04-27 10:06] LABS: Potassium 4.5 mmol/L (3.5-5.1)
== END ==
LOC: RAD 07:03
PROVIDERS: ATTENDING PHYSICIAN Internal Medicine Geriatric Medicine
DX: R60.9 Edema, unspecified (principal); I73.9 Peripheral vascular disease, unspecified
CPT/HCPCS: 36415; 80053; 82550; 85025; 93925; 93971

== ENCOUNTER → 2025-05-06 12:20 | Outpatient (REF) | payer MEDICARE, OTHER, SELFPAY | LOC: WDC 12:20 | PROVIDERS: ATTENDING PHYSICIAN Internal Medicine Geriatric Medicine | DX: Z12.39 Encounter for other screening for malignant neoplasm of breast (principal); Z12.31 Encounter for screening mammogram for malignant neoplasm of breast | CPT/HCPCS: 77063; 77067 ==

== ENCOUNTER → 2025-05-20 10:03 | Outpatient (REF) | payer MEDICARE, OTHER, SELFPAY | LOC: RAD 10:03 | PROVIDERS: ATTENDING PHYSICIAN Internal Medicine Geriatric Medicine | DX: J47.9 Bronchiectasis, uncomplicated (principal); M79.10 Myalgia, unspecified site; J96.10 Chronic respiratory failure, unspecified whether with hypoxia or hypercapnia; I10 Essential (primary) hypertension; E78.2 Mixed hyperlipidemia | CPT/HCPCS: 72110; 73523 ==

== ENCOUNTER → 2025-07-01 10:22 | Outpatient (REF) | payer MEDICARE, OTHER, SELFPAY ==
[2025-07-01 11:08] LABS: Hematocrit 28.4 % (37.0-47.0); Hemoglobin 9.4 g/dL (12.0-16.0); Mean Corp Hgb Conc. 33.1 g/dL (33.0-37.0); Mean Corpuscular Volume 97.3 fL (81.0-99.0); Nucleated Red Blood Cells % 0 %; Platelet Count 259 10^3/uL (130-400); Red Cell Dist. Width 13.3 % (11.5-14.5)
[2025-07-01 11:40] LABS: ALT (SGPT) 81 U/L (0-35); AST (SGOT) 77 U/L (14-36); Albumin 3.8 g/dl (3.5-5.0); Alkaline Phosphatase 230 U/L (38-126); Blood Urea Nitrogen 44 mg/dl (7-17); Calcium 8.5 mg/dl (8.4-10.2); Carbon Dioxide 29 mmol/L (22-30); Chloride 103 mmol/L (98-107); Glucose 68 mg/dl (70-99); Potassium 4.2 mmol/L (3.5-5.1); Sodium 137 mmol/L (135-145); Total Protein 7.6 g/dl (6.3-8.2); eGFR 33.31
[2025-07-03 19:42] LABS: Calprotectin, Fecal 151 ug/g (<=49)
== END ==
LOC: RCS 10:22
PROVIDERS: ATTENDING PHYSICIAN Internal Medicine Geriatric Medicine; REFERRING PHYSICIAN Internal Medicine Cardiovascular Disease
DX: J47.9 Bronchiectasis, uncomplicated (principal); M79.10 Myalgia, unspecified site; I10 Essential (primary) hypertension; E78.2 Mixed hyperlipidemia; F41.9 Anxiety disorder, unspecified; K21.9 Gastro-esophageal reflux disease without esophagitis; I34.0 Nonrheumatic mitral (valve) insufficiency; I48.0 Paroxysmal atrial fibrillation; I50.31 Acute diastolic (congestive) heart failure; R73.01 Impaired fasting glucose; Z13.89 Encounter for screening for other disorder; Z68.25 Body mass index [BMI] 25.0-25.9, adult; E04.1 Nontoxic single thyroid nodule; I73.9 Peripheral vascular disease, unspecified; R60.9 Edema, unspecified; Z91.81 History of falling; M54.50 Low back pain, unspecified; M25.551 Pain in right hip; I95.1 Orthostatic hypotension
CPT/HCPCS: 36415; 80053; 83880; 83993; 85025; 87045; 87046; 87077; 87328; 87329; 87427; 89055

== ENCOUNTER → 2025-07-02 08:02 | Outpatient (REF) | payer MEDICARE, OTHER, SELFPAY ==
[2025-07-02 09:10] LABS: Hematocrit 28.7 % (37.0-47.0); Hemoglobin 9.3 g/dL (12.0-16.0); Mean Corp Hgb Conc. 32.4 g/dL (33.0-37.0); Mean Corpuscular Volume 102.1 fL (81.0-99.0); Nucleated Red Blood Cells % 0 %; Platelet Count 287 10^3/uL (130-400); Red Cell Dist. Width 13.2 % (11.5-14.5)
[2025-07-02 09:38] LABS: Iron 141 ug/dl (37-170)
[2025-07-02 09:48] LABS: Total Iron Binding Capacity 422 ug/dl (265-497)
[2025-07-02 11:22] LABS: Ferritin 30.0 ng/ml (11.1-264.0)
== END ==
LOC: REG 08:02
PROVIDERS: ATTENDING PHYSICIAN Internal Medicine Geriatric Medicine
DX: E78.2 Mixed hyperlipidemia (principal); I10 Essential (primary) hypertension; K92.1 Melena; K21.9 Gastro-esophageal reflux disease without esophagitis; I50.32 Chronic diastolic (congestive) heart failure; I48.92 Unspecified atrial flutter
CPT/HCPCS: 36415; 82728; 83540; 83550; 85025

== ENCOUNTER 2025-07-05 08:36 | Emergency (ER) | payer MEDICARE, OTHER, SELFPAY ==
[2025-07-05] VITALS (7 sets, daily range): BP systolic 97–150; BP diastolic 34–70; BMI 28.3
[2025-07-05 09:01] LABS: Hematocrit 26.0 % (37.0-47.0); Hemoglobin 8.6 g/dL (12.0-16.0); Mean Corp Hgb Conc. 33.1 g/dL (33.0-37.0); Mean Corpuscular Volume 97.4 fL (81.0-99.0); Nucleated Red Blood Cells % 0 %; Platelet Count 287 10^3/uL (130-400); Red Cell Dist. Width 13.9 % (11.5-14.5)
[2025-07-05 09:14] LABS: INR 1.67; PT 19.9 Sec (11.4-14.6)
[2025-07-05 09:16] LABS: COVID-19 Antigen Negative (Negative)
[2025-07-05 09:28] LABS: Troponin I < 0.012 ng/ml
[2025-07-05 09:52] LABS: ALT (SGPT) 63 U/L (0-35); AST (SGOT) 70 U/L (14-36); Albumin 3.7 g/dl (3.5-5.0); Alkaline Phosphatase 219 U/L (38-126); Blood Urea Nitrogen 39 mg/dl (7-17); Calcium 8.8 mg/dl (8.4-10.2); Carbon Dioxide 26 mmol/L (22-30); Chloride 104 mmol/L (98-107); Glucose 127 mg/dl (70-99); Potassium 4.1 mmol/L (3.5-5.1); Sodium 133 mmol/L (135-145); Total Protein 7.7 g/dl (6.3-8.2); eGFR 36.19
--- NOTE | 2025-07-05 11:00 | ED.GENMED ---
History of Present Illness
General
Chief Complaint: Cold/Flu/URI Symptoms
Source: patient
Exam Limitations: none
Time Seen by Provider: 07/05/25 10:44
History of Present Illness
History of Present Illness:
89-year-old female with history of pneumonia presents with onset of sore throat runny nose congestion now loss of voice and cough. She feels as though there is something stuck in her lungs that she cannot cough out. She denies hemoptysis. No
measurable fever. She states her son was sick with similar symptoms. No other complaints at this time
Past History
Past History
ED Past Medical History: Arrthythmia (Atrial fibrillation), GERD, HTN, Hypothyroidism and Other (back pain); Negative Cancer
ED Past Surgical History: Gynecological, Orthopedic and Tonsilectomy
Social History
Tobacco: Non-smoker
Alcohol: None
Drug: None
Personal:
Living: with family
Employment: Retired
Family History
Family History: CAD (Son with CAD)
Phy Exam
Physical Exam
Physical Exam:
General: Well-appearing female no acute respiratory distress
HEENT: Normal cephalic atraumatic posterior pharynx patent heart: Regular rate and rhythm
Lungs: Expiratory wheeze bilaterally
Abdomen is soft nontender
Extremities: No cyanosis
Skin is warm no rash
Course
Orders/Labs/Results
Orders:
Orders
07/05/25
Electrocardiogram (*1) Stat
Reason for Study: Chest Pain
Comment: DONE NO ORDER ENTERED
07/05/25 08:49
CR Chest - 2 Views Urgent
Comment:
Reason For Exam: cough
07/05/25 08:53
Complete Blood Count/With Diff Urgent
Comprehensive Metabolic Panel Urgent
Prothrombin Time Urgent
Troponin I Urgent
Influenza A+B Rapid Molecular Urgent
DEBBIE Source: Nasal Swab
Specimen Description:
07/05/25 08:54
COVID-19 Antigen Urgent
Source: Nasal Swab
07/05/25 11:00
Dexamethasone Sod Phosphate [Decadron] 10 mg IV NOW STA
Ipratropium/Albuterol Sulfate [Duoneb] 3 ml INH R NOW ONE
Abnormal Lab Results
07/05/25
08:53
RBC 2.67 L 10^6/uL
(4.20-5.40)
Hgb 8.6 L g/dL
(12.0-16.0)
Hct 26.0 L %
(37.0-47.0)
MCH 32.2 H pg
(27.0-31.0)
Absolute Neuts (auto) 7.0 H 10^3/uL
(1.4-6.5)
Absolute Lymphs (auto) 1.1 L 10^3/uL
(1.2-3.4)
Absolute Monos (auto) 1.0 H 10^3/uL
(0.1-0.6)
Lymphocytes % 10.9 L %
(20.5-51.1)
Monocytes % 10.4 H %
(1.7-9.3)
PT 19.9 H Sec
(11.4-14.6)
Sodium 133 L mmol/L
(135-145)
BUN 39 H mg/dl
(7-17)
Creatinine 1.4 H mg/dL
(0.6-1.0)
Glucose 127 H mg/dl
(70-99)
AST 70 H U/L
(14-36)
ALT 63 H U/L
(0-35)
Alkaline Phosphatase 219 H U/L
(38-126)
07/05/25 08:53
07/05/25 08:53
Vital Signs
Initial and Last Documented VS:
Initial Vital Signs
Temp Pulse Resp BP Pulse Ox
98.8 F 75 18 139/64 99
07/05/25 08:46 07/05/25 08:46 07/05/25 08:46 07/05/25 08:46 07/05/25 08:46
Last Documented Vital Signs
Temp Pulse Resp BP Pulse Ox
98.8 F 83 21 97/34 93
07/05/25 08:46 07/05/25 14:30 07/05/25 14:30 07/05/25 14:00 07/05/25 14:30
MDM/Problems Addressed
Differential Diagnosis Includes:
Cough wheeze shortness of breath loss of voice. Consider bronchitis versus pneumonia versus COVID.
DuoNeb ordered Decadron ordered chest x-ray ordered through triage which I have reviewed personally and is negative for acute pneumonia. COVID test was negative.
*Pulse Oximetry
SaO2: 95
Oxygen Mode of Delivery: Room air
Patient hypoxic: no
*Critical Care Note
Total Time (30-74mins, 75-104mins- exclusive of procedures): Not Applicable
Update Note
Update Note:
Patient feeling improved after nebulizer here. Suspect acute bronchitis. Will discharge patient on inhaler steroid and doxycycline to cover
ED Attending Note
-
Portions of this chart may have been created with voice recognition software.� Occasional wrong word or��sound alike� substitutions may have occurred due to the inherent limitations of voice recognition software.
Discharge Plan
Departure
Patient Disposition: Home (Routine Discharge)
Date of Disposition: 07/05/25
Time of Disposition: 14:51
Patient with high blood pressure during this ER visit?: No
Discharge Problem:
Acute bronchitis
Instructions: Acute Bronchitis, Adult (DC)
Prescriptions:
New
albuterol sulfate [Ventolin HFA] 90 mcg/actuation HFA aerosol inhaler
2 puff inhalation QID PRN (Reason: shortness of breath or wheezing) Qty: 6.7 0RF
prednisone 20 mg tablet
40 mg PO DAILY 5 Days Qty: 10 0RF
doxycycline hyclate 100 mg capsule
100 mg PO BID Qty: 14 0RF
No Action
cholecalciferol (vitamin D3) 1,000 UNIT tablet
1,000 unit PO DAILY
spironolactone 25 mg Tablet
12.5 mg PO DAILY
furosemide 20 mg Tablet
20 mg PO MOWEFR
Eliquis 5 mg Tablet
5 mg PO BID
atorvastatin [Lipitor] 20 mg Tablet
20 mg PO HS
atenolol 25 mg Tablet
25 mg PO BID
acetaminophen-codeine 300-30 mg Tablet
1 tab PO PRN PRN (Reason: PAIN)
furosemide 20 mg Tablet
20 mg PO DAILY
Pepcid Complete 10-800-165 mg Tablet,Chewable
1 tab PO DAILYPRN PRN (Reason: INDIGESTION)
lorazepam 0.5 MG tablet
0.5 mg PO DAILYPRN PRN (Reason: anxiety)
furosemide [Lasix] 40 mg tablet
40 mg PO DAILY Qty: 3 0RF
Referrals:
Tyler Cabral MD [Family Provider, Internal Medicine]
Activity Restrictions/Additional Instructions:
Use inhaler and steroid as directed. Use antibiotic as prescribed. Return here for worsening shortness of breath otherwise follow-up with your doctor as planned
Interventions
Interventions:
*Risk Screen - Suicide Last Done: 07/05/25 08:48
*General Assessment Last Done: 07/05/25 08:48
*Neglect/Abuse Screening Last Done: 07/05/25 08:48
*ED- Fall Risk Assessment Last Done: 07/05/25 10:39
*ED COVID-19 Vaccine History Last Done: 07/05/25 08:48
*ED Influenza Vaccine History Last Done: 07/05/25 08:48
ED- Pulmonary Assessment Last Done: 07/05/25 10:35
Discharge Date and Time
Print Language: ALBANIAN
[2025-07-05] MEDS: DECADRON 10 MG IV (11:54)
[2025-07-05] MEDS: DUONEB 3 ML INH (11:55)
== END 2025-07-05 15:07 | disposition home or self-care (01) ==
LOC: EMR 08:36
PROVIDERS: EMERGENCY PHYSICIAN Emergency Medicine; FAMILY PHYSICIAN Internal Medicine Geriatric Medicine
DX: J20.9 Acute bronchitis, unspecified (principal); Z11.52 Encounter for screening for COVID-19; I48.91 Unspecified atrial fibrillation; K21.9 Gastro-esophageal reflux disease without esophagitis; E03.9 Hypothyroidism, unspecified; I10 Essential (primary) hypertension; Z79.01 Long term (current) use of anticoagulants; Z87.01 Personal history of pneumonia (recurrent); Z88.8 Allergy status to other drugs, medicaments and biological substances; Z88.1 Allergy status to other antibiotic agents; Z91.040 Latex allergy status
CPT/HCPCS: 99284; 96374; 94640; 71046; 80053; 84484; 85025; 85610; 87502; 87811; 93005

== ENCOUNTER → 2025-07-08 09:06 | Outpatient (REF) | payer MEDICARE, OTHER, SELFPAY | LOC: RAD 09:06 | PROVIDERS: ATTENDING PHYSICIAN Internal Medicine Geriatric Medicine | DX: J47.9 Bronchiectasis, uncomplicated (principal); R06.00 Dyspnea, unspecified; R05.9 Cough, unspecified | CPT/HCPCS: 71046 ==

== ENCOUNTER 2025-07-17 06:22 | Day surgery (SDC) | payer MEDICARE, OTHER, SELFPAY ==
[2025-07-17] VITALS (7 sets, daily range): BP systolic 110–136; BP diastolic 56–102; BMI 27.9
[2025-07-17 10:38] LABS: Hematocrit 20.4 % (37.0-47.0); Hemoglobin 6.6 g/dL (12.0-16.0); Mean Corp Hgb Conc. 32.4 g/dL (33.0-37.0); Mean Corpuscular Volume 94.0 fL (81.0-99.0); Nucleated Red Blood Cells % 0 %; Platelet Count 318 10^3/uL (130-400); Red Cell Dist. Width 13.3 % (11.5-14.5)
[2025-07-17 11:19] LABS: Iron 27 ug/dl (37-170)
[2025-07-17] MEDS: DUONEB 3 ML INH (11:24)
[2025-07-17 12:21] LABS: Ferritin 17.5 ng/ml (11.1-264.0)
== END 2025-07-17 12:15 | disposition home or self-care (01) ==
LOC: SDS 06:22
PROVIDERS: ATTENDING PHYSICIAN Internal Medicine
DX: K31.811 Angiodysplasia of stomach and duodenum with bleeding (principal); K22.89 Other specified disease of esophagus; K44.9 Diaphragmatic hernia without obstruction or gangrene; K92.1 Melena; D50.0 Iron deficiency anemia secondary to blood loss (chronic); Z79.01 Long term (current) use of anticoagulants
CPT/HCPCS: 43255; 82728; 83540; 85025; 94640

== ENCOUNTER 2025-07-17 16:21 | Observation (INO) | payer MEDICARE, OTHER, SELFPAY ==
[2025-07-17] VITALS (14 sets, daily range): BP systolic 90–153; BP diastolic 52–86; BMI 31.3
--- NOTE | 2025-07-17 13:59 | ED.GENMED ---
History of Present Illness
<Justo Capone PA-C - Last Filed: 07/17/25 15:27>
General
Chief Complaint: Abnormal Lab Value
Source: patient
Time Seen by Provider: 07/17/25 13:42
History of Present Illness
History of Present Illness:
89-year-old female presenting to the emergency department for evaluation at the request of GI where patient was in same-day surgery where she was having a upper endoscopy performed and patient was found to have a hemoglobin of 6.6, down from 8.6 on
07/05/2025. Patient endorses GI bleeding over the last few months which is the reason for the endoscopy being performed. Today states she feels as if she is in her usual state of health, maybe some slight fatigue worse than usual. No fevers,
chills, rigors or pain. No history of requiring blood transfusions in the past. Patient is on Eliquis due to A-fib history
Past History
<Justo Capone PA-C - Last Filed: 07/17/25 15:27>
Past History
ED Past Medical History: Arrthythmia (Atrial fibrillation), GERD, HTN, Hypothyroidism and Other (back pain); Negative Cancer
ED Past Surgical History: Gynecological, Orthopedic and Tonsilectomy
Social History
Tobacco: Non-smoker
Alcohol: None
Drug: None
Personal:
Living: with family
Employment: Retired
Family History
Family History: CAD (Son with CAD)
Review of Systems
<Justo Capone PA-C - Last Filed: 07/17/25 15:27>
Review of Systems
All Other Systems: ROS reviewed and negative except as documented in HPI and ROS
Phy Exam
<Justo Capone PA-C - Last Filed: 07/17/25 15:27>
Physical Exam
Physical Exam:
GENERAL: Alert , in no apparent distress
HEAD: Normocephalic atraumatic
EYE: conjunctiva clear
NECK: Supple, no significant adenopathy.
ENT: o/p clr, mmm.
CARDIAC: Regular rate and rhythm
LUNGS: Clear breath sounds bilaterally, no acute respiratory distress, no wheezes/rales/rhonchi
NEUROLOGICAL: Alert and oriented
SKIN: Warm and dry, skin intact. Pale in appearance
MUSCULOSKELETAL: well perfused.
PSYCH: Normal and appropriate interaction.
Scores
<Justo Capone PA-C - Last Filed: 07/17/25 15:27>
Heart Failure Risk
Heart Failure Risk Score: Not Applicable
Heart Score for Chest Pain Patients
STEMI patient?: Not applicable
Withdrawal Assessment of Alcohol
Withdrawal Assessment Completed?: Not applicable
Course
<Justo Capone PA-C - Last Filed: 07/17/25 15:27>
Orders/Labs/Results
Orders:
Orders
07/17/25 12:30
Type And Crossmatch [Type+Screen] Urgent
07/17/25 13:44
Blood Bank Products [* Blood Bank Products] Urgent
Blood Bank Products: *Packed RBC Leuko (PRBC's
Quantity: 1
Transfuse Today: Yes
Reason: Anemia
07/17/25 14:10
Basic Metabolic Panel Urgent
07/17/25 14:25
Pantoprazole [Protonix IV] 80 mg IV NOW STA
07/17/25 15:12
Admit/Transfer Patient As Directed
Co-Sign Provider:
Level of Care: Inpatient admission
Assign to:: Telemetry
Physician / Group: Hospitalist
Diagnosis: Anemia
Reason for Telemetry: Arrhythmia
Date to Stop Telemetry: 07/20/25
Time to Stop Telemetry: 11:00
Reason for Hospitalization: Anemia
Expected length of stay greater than two midnights?: Yes
ELOS- Estimated Length of Stay in days: 2
I certify the patient meets the requirements for IP care: Yes
PRN Pain Medication Management As Directed
May give lesser potent ordered pain med per pt: Yes
preference::
Protocol:: Medication orders for pain may be administered in a
manner that supports deferring to patient preference
when the pt is:
- Requesting an ordered lesser potent pain medication.
Least to most potent pain medications are defined
as: acetaminophen < NSAID < tramadol < opioids
(morphine, oxycodone, hydromorphone).
- Requesting a lesser dose of the same medication IF
ORDERED.
- Requesting a less intrusive route of administration
if both routes are prescribed by the provider (PO <
IV).
07/17/25 15:17
Code Status As Directed
Resuscitation Status: Full Code
07/20/25 11:00
DC Protocol for Telemetry ONCE
Abnormal Lab Results
07/17/25 07/17/25
12:30 14:10
Sodium 132 L mmol/L
(135-145)
BUN 31 H mg/dl
(7-17)
Creatinine 1.4 H mg/dL
(0.6-1.0)
Glucose 124 H mg/dl
(70-99)
Calcium 8.3 L mg/dl
(8.4-10.2)
Crossmatch IS Only See Detail
07/17/25 14:10
Vital Signs
Initial and Last Documented VS:
Initial Vital Signs
Temp Pulse Resp BP Pulse Ox
97.3 F 82 18 146/78 97
07/17/25 12:23 07/17/25 12:23 07/17/25 12:23 07/17/25 12:23 07/17/25 12:23
Last Documented Vital Signs
Temp Pulse Resp BP Pulse Ox
97.1 F 77 20 127/69 92
07/17/25 15:22 07/17/25 15:22 07/17/25 15:22 07/17/25 15:22 07/17/25 15:22
<Rehana Ellis MD - Last Filed: 07/17/25 14:54>
Orders/Labs/Results
Orders:
Orders
07/17/25 12:30
Type And Crossmatch [Type+Screen] Urgent
07/17/25 13:44
Blood Bank Products [* Blood Bank Products] Urgent
Blood Bank Products: *Packed RBC Leuko (PRBC's
Quantity: 1
Transfuse Today: Yes
Reason: Anemia
07/17/25 14:10
Basic Metabolic Panel Urgent
07/17/25 14:25
Pantoprazole [Protonix IV] 80 mg IV NOW STA
07/17/25 15:12
Admit/Transfer Patient As Directed
Co-Sign Provider:
Level of Care: Inpatient admission
Assign to:: Telemetry
Physician / Group: Hospitalist
Diagnosis: Anemia
Reason for Telemetry: Arrhythmia
Date to Stop Telemetry: 07/20/25
Time to Stop Telemetry: 11:00
Reason for Hospitalization: Anemia
Expected length of stay greater than two midnights?: Yes
ELOS- Estimated Length of Stay in days: 2
I certify the patient meets the requirements for IP care: Yes
PRN Pain Medication Management As Directed
May give lesser potent ordered pain med per pt: Yes
preference::
Protocol:: Medication orders for pain may be administered in a
manner that supports deferring to patient preference
when the pt is:
- Requesting an ordered lesser potent pain medication.
Least to most potent pain medications are defined
as: acetaminophen < NSAID < tramadol < opioids
(morphine, oxycodone, hydromorphone).
- Requesting a lesser dose of the same medication IF
ORDERED.
- Requesting a less intrusive route of administration
if both routes are prescribed by the provider (PO <
IV).
07/17/25 15:17
Code Status As Directed
Resuscitation Status: Full Code
07/20/25 11:00
DC Protocol for Telemetry ONCE
Abnormal Lab Results
07/17/25 07/17/25
12:30 14:10
Sodium 132 L mmol/L
(135-145)
BUN 31 H mg/dl
(7-17)
Creatinine 1.4 H mg/dL
(0.6-1.0)
Glucose 124 H mg/dl
(70-99)
Calcium 8.3 L mg/dl
(8.4-10.2)
Crossmatch IS Only See Detail
07/17/25 14:10
Vital Signs
Initial and Last Documented VS:
Initial Vital Signs
Temp Pulse Resp BP Pulse Ox
97.3 F 82 18 146/78 97
07/17/25 12:23 07/17/25 12:23 07/17/25 12:23 07/17/25 12:23 07/17/25 12:23
Last Documented Vital Signs
Temp Pulse Resp BP Pulse Ox
97.1 F 77 20 127/69 92
07/17/25 15:22 07/17/25 15:22 07/17/25 15:22 07/17/25 15:22 07/17/25 15:22
<Justo Capone PA-C - Last Filed: 07/17/25 15:27>
MDM/Problems Addressed
Differential Diagnosis Includes:
Known UGI bleeding
Anemia
GLYNN/CKD
Dehydration
MDM/Problems Addressed:
89-year-old female presenting to the ER for evaluation after she was found to have anemia on blood work as part of her workup with an EGD done earlier today and same-day surgery. Patient sent to the ER for blood products. She is overall without
any specific concerns other than some minor fatigue. Given her age combined with anticoagulated status and 2 point drop in hemoglobin over 2 weeks as well as her EGD findings today of moderate gastric antral vascular ectasia with an area of
bleeding noted will plan to admit for trending of her hemoglobin as well as possible further blood products. GI team can be consulted as needed. Will notify hospitalist team
Chronic conditions affecting care: Other (GI bleeding)
<Justo Capone PA-C - Last Filed: 07/17/25 15:27>
*Pulse Oximetry
SaO2: 97
Oxygen Mode of Delivery: Room air
Patient hypoxic: no
*Critical Care Note
Total Time (30-74mins, 75-104mins- exclusive of procedures): Not Applicable
Data Reviewed
Review of Other/Old Records Reveals: Labs, Records and Testing
Source: patient, records and physician
<Justo Capone PA-C - Last Filed: 07/17/25 15:27>
Patient Management
Discussion with other providers: Hospitalist and Morphologist
ED Attending Note
<Justo Capone PA-C - Last Filed: 07/17/25 15:27>
-
Portions of this chart may have been created with voice recognition software.� Occasional wrong word or��sound alike� substitutions may have occurred due to the inherent limitations of voice recognition software.
<Rehana Ellis MD - Last Filed: 07/17/25 14:54>
ED Attending Note
Patient seen and examined by attending physician: Yes
I performed the substantive portion of visit, reviewed & personally made and approve the management plan that is documented in note by myself or CRISTHIAN.: Yes
ED Attending Note:
I have seen and evaluated the patient with a [id number] encounter. I have spoken to the [CRISTHIAN] and involved in the medical history, the physical exam, medical decision making.
Evaluation and management service: agree unless noted differently below.
Results interpretation: agree unless noted differently below.
89-year-old woman presenting to the emergency department from same-day surgery for low hemoglobin. Patient's hemoglobin today was 6.6. Prior to this it was 8.6 on July 05. Patient was sent in by GI after her endoscopy. She is currently on
Eliquis. No prior history of needing transfusions. She has been having dark stools. No hemoptysis hematemesis. On arrival patient is resting comfortably. She does have dry oral mucosa. She does have slightly pale conjunctiva. Her abdomen is
soft nondistended nontender.
I did discuss with patient regarding her low hemoglobin. Will transfuse 1 unit. After shared decision making we will admit patient for blood products and rechecking her hemoglobin. Discussed with hospitalist excepted patient to their service
Discharge Plan
Departure
Patient Disposition: Admit
Date of Disposition: 07/17/25
Time of Disposition: 14:25
Presentation/result/management discussed w/ accepting MD/DO: Hospitalist
Discharge Problem:
GI bleed, Anemia
Prescriptions:
No Action
cholecalciferol (vitamin D3) 1,000 UNIT tablet
2,000 unit PO DAILY
spironolactone 25 mg Tablet
12.5 mg PO DAILY
atorvastatin [Lipitor] 20 mg Tablet
20 mg PO HS
atenolol 25 mg Tablet
25 mg PO HS
furosemide 20 mg Tablet
20 mg PO DAILY
diazepam 5 mg Tablet
2.5 mg PO BIDPRN PRN (Reason: axniety)
omeprazole 20 mg Tablet,Delayed Release (Dr/Ec)
20 mg PO BID
cyclosporine [Restasis] 0.05 % Dropperette
1 drp BOTH EYES Q12H
Eliquis 2.5 mg Tablet
2.5 mg PO BID
albuterol sulfate [Ventolin HFA] 90 mcg/actuation HFA aerosol inhaler
2 puff inhalation R QIDPRN PRN (Reason: shortness of breath or wheezing)
Referrals:
Tyler Cabral MD [Family Provider, Internal Medicine]
Interventions
Interventions:
*Risk Screen - Suicide Last Done: 07/17/25 12:23
*General Assessment Last Done: 07/17/25 12:23
*Neglect/Abuse Screening Last Done: 07/17/25 12:23
*ED- Fall Risk Assessment Last Done: 07/17/25 15:05
*ED COVID-19 Vaccine History Last Done: 07/17/25 15:05
*ED Influenza Vaccine History Last Done: 07/17/25 15:05
Discharge Date and Time
Print Language: MAURITIAN
--- NOTE | 2025-07-17 14:27 | W.PN.UPDATE ---
Update Note
Progress Note Update
This is an addendum to H&P written by resident physician Dr. Alejandra Ospina
I saw and examined the patient.
The resident physician's note was reviewed and I agree with the note.
Comment:
Ms. Little Patrick is a 89 yo woman with hx atrial fibrillation on Eliquis, GERD, essential HTN, hypothyroidism sent to the ER from [facility] for Hg 6.6. Patient had an outpatient EGD today for reported melena. She was found to have a moderate
gastric antral vascular ectasia s/p APC.
Triage VS: T 97.3, P 82, RR 18, BP 146/78, SpO2 97%
On exam patient is awake, alert, in no distress; Chest clear; CV: S1, S2, RRR; LE with trace edema
LABS: WBC 9.5, Hg 6.6, PLT 318, Na 132, K+ 3.9, BUN 31, Cr 1.4, Glucose 124
MAR: IV Protonix
ordered for 1 unit PRBC
Symptomatic Anemia
Upper GI Bleed 2/2 gastric antral vascular ectasia s/p APC 07/17/25
-patient feels uncomfortable going home given symptomatic anemia, will therefore observe overnight
-she is s/p outpatient EGD today, results below
-1 unit PRBC ordered in ER, repeat Hg tonight and tomorrow morning
-PPI daily
-hold Eliquis x 5 days (per GI, patient to discuss Watchman with Fermenter Champagne given chronic GAVE)
-PT
Paroxysmal Afib
-Hold Eliquis
-GROUND LAYER Atenolol
Essential HTN - GROUND LAYER Atenolol
HLD - GROUND LAYER Statin
HFpEF - GROUND LAYER Lasix, resume tomorrow
EGD 07/17/25
Impression:
- 2 cm hiatal hernia.
- [place]-colored mucosa suspicious for short-segment Montelongo's
esophagus.
- No biopsies taken (due to age and indication of procedure)
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
coagulation (APC).
- Normal examined duodenum.
- No specimens collected.
DVT PPx SCD
FULL CODE
[2025-07-17 14:33] LABS: Blood Urea Nitrogen 31 mg/dl (7-17); Calcium 8.3 mg/dl (8.4-10.2); Carbon Dioxide 28 mmol/L (22-30); Chloride 101 mmol/L (98-107); Glucose 124 mg/dl (70-99); Potassium 3.9 mmol/L (3.5-5.1); Sodium 132 mmol/L (135-145); eGFR 36.19
--- NOTE | 2025-07-17 14:33 | HPS.HSE ---
Family Physician
-
Family Physician: Tyler Cabral
Chief Complaint
-
.
History of Present Illness
89-year-old female presenting to the ER for evaluation of her abnormal blood work report. Patient has a past medical history of paroxysmal A-fib, hypertension, hyperlipidemia, HFpEF, CKD stage III. Patient was seen by GI earlier today, underwent
EGD. Her blood work showed anemia with hemoglobin of 6.6 and was sent to ER for transfusion of blood products.
Patient reports having melena from the past 6 months, has generalized weakness/fatigue, reports SOB which has been chronic. Patient denies any chest pain, nausea/vomiting, hematemesis, abdominal pain, hematochezia, hematuria,
lightheadedness/dizziness.
EGD today� 2 cm hiatal hernia.
- [place]-colored mucosa suspicious for short-segment Montelongo's
esophagus.
- No biopsies taken (due to age and indication of procedure)
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
coagulation (APC).
- Normal examined duodenum.
Use a proton pump inhibitor PO daily.Patient's hemoglobin today is 6.6 down from 8.6 on 07/03/25.hold the Eliquis for 5 days
ED course�stable vitals at presentation, hemoglobin�6.6, HCT�20.4, sodium�132, BUN/creatinine�31/1.4, glucose 124, calcium 8.3, iron�27.
Patient was ordered 1 PRBC, after type/crossmatch.
Medical History
Past Medical History
Past Medical History: Reports Other (paroxysmal A-fib, hypertension, hyperlipidemia, HFpEF, CKD stage III.)
Past Surgical History: Reports Gynocological (Partial hysterectomy), Orthopedic (Left knee arthroscopy) and Tonsilectomy
Social History
Tobacco: Non-smoker
Alcohol: None
Drug: None
Living: With Family
Family History
Family History: Not pertinent
Allergies / Home Medications
Allergies reflects when Allergies were last updated in [employer].
Home Medications with original date entered in [employer]
Allergy/Medication List:
Allergies
Allergy/AdvReac Type Severity Reaction Status Date / Time
latex Allergy Rash Verified 07/17/25 12:27
levofloxacin (From Levaquin) Allergy TENDON Verified 07/17/25 12:27
RUPTURE
mirtazapine Allergy HALLUCINATI Verified 07/17/25 12:27
ONS
simvastatin Allergy MYALGIAS Verified 07/17/25 12:27
Pswymwa-OCT-WhS Reductase Allergy MYALGIAS Verified 07/17/25 12:27
Inhibitor (Dlyhcnc-Dno-Hag
Reductase Inhibitor)
Home Medications
cholecalciferol (vitamin D3) 25 mcg (1,000 unit) tablet 2,000 unit PO DAILY Supplement 08/26/11
spironolactone 25 mg tablet 12.5 mg PO DAILY Fluid Retention/Swelling 03/12/23
atenolol 25 mg tablet 25 mg PO HS Heart Disease/Condition 04/10/24
atorvastatin 20 mg tablet (Lipitor) 20 mg PO HS High Cholesterol 04/10/24
furosemide 20 mg tablet 20 mg PO DAILY EDEMA 04/10/24
albuterol sulfate 90 mcg/actuation aerosol inhaler (Ventolin HFA) 2 puff inhalation R QIDPRN PRN shortness of breath or wheezing 07/17/25
apixaban 2.5 mg tablet (Eliquis) 2.5 mg PO BID Blood Clot Prevention/Tx 07/17/25
cyclosporine 0.05 % eye drops in a dropperette (Restasis) 1 drp BOTH EYES Q12H Eye Condition 07/17/25
diazepam 5 mg tablet 2.5 mg PO BIDPRN PRN axniety 07/17/25
omeprazole 20 mg tablet,delayed release 20 mg PO BID Gastrointestinal Issue 07/17/25
Review of Systems
-
A 12 point ROS was completed and negative except as noted: Yes
Physical Exam
Vital Signs
Vital Signs
Temp Pulse Resp BP Pulse Ox
97.3 F 78 18 136/71 97
07/17/25 12:23 07/17/25 14:15 07/17/25 14:15 07/17/25 14:10 07/17/25 14:15
Physical Exam
General: No Apparent Distress
HEENT: NormoCephalic and Atraumatic
Respiratory: Clear
Cardiac: S1/S2 and Regular Rhythm
GI: Soft, Non Tender, Non Distended and Normal Bowel Sounds
Skin: Warm and Dry
Neuro: Awake, Alert, Oriented and AO x 3
Impression/Plan
-
IMPRESSION:
89-year-old woman with past medical history of paroxysmal A-fib, hypertension, hyperlipidemia, HFpEF, CKD stage IIIb, presents to the ER for evaluation of abnormal lab work. Patient had EGD earlier today with cauterization of gastric antral
ectasia. Her hemoglobin was 6.4, with significant drop from 8.6, 10 days ago.
PLAN:
#Acute on chronic anemia
#Chronic upper GI bleed
Baseline at 9�11
Likely due to upper GI bleeding
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
S/p 1 PRBC in the ER after typing/crossmatch.
Will monitor her H&H
Plan for second PRBC pending H&H
Will hold off on Eliquis
Start Protonix p.o. 40 mg once daily from tomorrow, patient received 80 mg Protonix IV in the ER.
#Paroxysmal A-fib
Continue atenolol
Will hold off on Eliquis for next 5 days, as recommended by GI
Patient has cardiology outpatient will schedule for 07/20/2025, consideration for Watchman.
Monitor on telemetry
#Heart failure with preserved ejection fraction
Patient appears euvolemic
Echo�11/08/2024�LV ejection fraction is 60-65% , Stage II diastolic dysfunction
She will receive 1 PRBC
Continue furosemide
Monitor I's/O's, weights
Continue spironolactone
Continue atenolol
#Acute bronchitis
S/p course of antibiotics
Her symptoms have improved
Still has some cough, will do lozenges
#CKD stage IIIb
She is at her baseline
Creatinine today�1.4
Monitor BMP
#Hyperlipidemia
Continue atorvastatin
#Anxiety disorder
Continue diazepam as needed
Diet�low-sodium
DVT prophylaxis�SCDs
Full code
[2025-07-17] MEDS: PROTONIX IV 80 MG IV (15:31)
[2025-07-17 21:18] LABS: Hematocrit 23.3 % (37.0-47.0); Hemoglobin 7.8 g/dL (12.0-16.0)
[2025-07-17] MEDS: VALIUM 2.5 MG PO (21:19)
[2025-07-17] MEDS: TENORMIN 25 MG PO (21:19)
[2025-07-17] MEDS: LIPITOR 20 MG PO (21:19)
[2025-07-17] MEDS: RESTASIS 0.05% OPHTHALMIC EMULSION 1 DROPS BOTH EYES (21:19)
[2025-07-17] MEDS: ANESTHETIC LOZENGE 1 LOZENGE PO (21:20)
[2025-07-18] VITALS (11 sets, daily range): BP systolic 93–137; BP diastolic 48–92; PULSE 80–99; O2SAT 97; BMI 30.9
[2025-07-18 08:51] LABS: Hematocrit 24.9 % (37.0-47.0); Hemoglobin 8.4 g/dL (12.0-16.0); Mean Corp Hgb Conc. 33.7 g/dL (33.0-37.0); Mean Corpuscular Volume 94.7 fL (81.0-99.0); Nucleated Red Blood Cells % 0 %; Platelet Count 316 10^3/uL (130-400); Red Cell Dist. Width 13.7 % (11.5-14.5)
[2025-07-18] MEDS: RESTASIS 0.05% OPHTHALMIC EMULSION 1 DROPS BOTH EYES ×2 (08:56→20:09)
[2025-07-18] MEDS: VITAMIN D3 (cholecalciferol) 50 MCG PO (08:56)
[2025-07-18] MEDS: ALDACTONE 12.5 MG PO (08:56)
[2025-07-18] MEDS: PROTONIX 40 MG PO (08:56)
[2025-07-18] MEDS: LASIX 20 MG PO (08:56)
[2025-07-18 09:29] LABS: ALT (SGPT) 24 U/L (0-35); AST (SGOT) 35 U/L (14-36); Albumin 3.3 g/dl (3.5-5.0); Alkaline Phosphatase 112 U/L (38-126); Blood Urea Nitrogen 22 mg/dl (7-17); Calcium 8.6 mg/dl (8.4-10.2); Carbon Dioxide 26 mmol/L (22-30); Chloride 103 mmol/L (98-107); Estimated Creatinine Clearance 29 ml/min; Glucose 103 mg/dl (70-99); Potassium 4.0 mmol/L (3.5-5.1); Sodium 133 mmol/L (135-145); Total Protein 6.9 g/dl (6.3-8.2); eGFR 43.54
--- NOTE | 2025-07-18 09:37 | W.PN.HOSP.TC ---
Today's Communication/Plan
-
PT OT. Oral antibiotics. Advance diet. Monitor hemoglobin and GI eval.
Assessment / Plan
Assessment / Plan
Physical exam:
General: Well Developed, Well Nourished and No Apparent Distress
HEENT: Normocephalic, Atraumatic and Moist Mucous Membranes
Respiratory: Clear to Auscultation; Negative Wheezes, Rales or Rhonchi
Cardiac: Regular Rhythm and S1/S2
GI: Soft, Nontender and Nondistended
Musculoskeletal: No Clubbing, No Cyanosis and No Edema
Neuro: Awake, Alert and Oriented, no neurological deficit
Psych: Calm
A/P:
#Acute on chronic anemia
#Chronic upper GI bleed
Hemoglobin up to 8.4 today
GI consult
Advance diet as tolerated
Holding off on Eliquis
Discussed with patient about Watchman procedure and she did not know but she will discuss with her wood heel flap trimmer, Dr. Vail.
She does not feel ready for discharge so planning discharge over the next 24 hours. PT OT eval pending.
Prior to today:
Baseline at 9�11
Likely due to upper GI bleeding
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
S/p 1 PRBC in the ER after typing/crossmatch.
Will monitor her H&H
Plan for second PRBC pending H&H
Will hold off on Eliquis
Start Protonix p.o. 40 mg once daily from tomorrow, patient received 80 mg Protonix IV in the ER.
#Paroxysmal A-fib
Continue atenolol
Will hold off on Eliquis for next 5 days, as recommended by GI
Patient has cardiology outpatient will schedule for 07/20/2025, consideration for Watchman.
Monitor on telemetry
#Heart failure with preserved ejection fraction
Patient appears euvolemic
Echo�11/08/2024�LV ejection fraction is 60-65% , Stage II diastolic dysfunction
She will receive 1 PRBC
Continue furosemide
Monitor I's/O's, weights
Continue spironolactone
Continue atenolol
#Acute bronchitis
Chest x-ray no acute chest pathology
Planning on doing azithromycin and Mucinex-I do not have records of what she took before.
Prior to today:
S/p course of antibiotics
Her symptoms have improved
Still has some cough, will do lozenges
#CKD stage IIIb
She is at her baseline
Creatinine today�1.2
Monitor BMP
#Hyperlipidemia
Continue atorvastatin
#Anxiety disorder
Continue diazepam as needed
Diet�low-sodium
DVT prophylaxis�SCDs
Full code
Anticipated Discharge: Within 24 hours
Subjective/Interval History
-
Date of Service: July 18, 2025
Patient having some cough and she feels that is a bronchitis going on even prior to procedure. No abdominal pain.
Objective Data
-
Labs:
Laboratory Results
07/18/25
08:16
WBC 11.1 H
Hgb 8.4 L
Hct 24.9 L
Plt Count 316
Sodium 133 L
Potassium 4.0
Chloride 103
Carbon Dioxide 26
BUN 22 H
Creatinine 1.2 H
Glucose 103 H
Calcium 8.6
Total Bilirubin 1.0
AST 35
ALT 24
Alkaline Phosphatase 112
Vital Signs:
Vital Signs
Temp Pulse Resp BP Pulse Ox
98.0 F 88 18 134/59 93
07/18/25 07:15 07/18/25 08:56 07/18/25 07:15 07/18/25 08:56 07/18/25 07:15
I&O
07/17/25 07/18/25 07/19/25
06:59 06:59 06:59
Intake Total 490 / 490
Balance 490 / 490
--- NOTE | 2025-07-18 11:05 | CON.GI ---
Consultation
-
Date/Time Consultation Requested: 07/18/2025
Date/Time Consultation Performed: 07/18/2025
Performing Provider: Naif Powell
Reason for Consultation: anemia
Medical History
Chief Complaint / HPI
Chief Complaint: anemia
History of Present Illness:
The patient is a 89 year old female with h/o pA-fib, HTN, hyperlipidemia, HFpEF, CKD stage III who recently had EGD with intervention (APC of GAVE) and was admitted for pRBC transfusion as her Hgb was noted 6.6. She was sent to ER for pRBC
transfusion and was admitted afterwards. 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
Past Medical History
Past Medical History: Arrhythmias, HTN and Other
Past Surgical History: Tonsilectomy and Other
Social History
Tobacco: Non-Smoker
Alcohol: None
Family History
Family History: Reviewed & Not Pertinent
Allergies / Home Medications
Allergy/AdvReac Type Severity Reaction Status Date / Time
latex Allergy Rash Verified 07/17/25 12:27
levofloxacin (From Levaquin) Allergy TENDON Verified 07/17/25 12:27
RUPTURE
mirtazapine Allergy HALLUCINATI Verified 07/17/25 12:27
ONS
simvastatin Allergy MYALGIAS Verified 07/17/25 12:27
Gaydkco-QDH-CrF Reductase Allergy MYALGIAS Verified 07/17/25 12:27
Inhibitor (Muljfdr-Rbj-Fbz
Reductase Inhibitor)
�Medication �Instructions �Recorded
cholecalciferol (vitamin D3) 25 2,000 unit PO DAILY Supplement 08/26/11
mcg (1,000 unit) tablet
spironolactone 25 mg tablet 12.5 mg PO DAILY Fluid 03/12/23
Retention/Swelling
atenolol 25 mg tablet 25 mg PO HS Heart Disease/Condition 04/10/24
atorvastatin 20 mg tablet (Lipitor) 20 mg PO HS High Cholesterol 04/10/24
furosemide 20 mg tablet 20 mg PO DAILY EDEMA 04/10/24
albuterol sulfate 90 mcg/actuation 2 puff inhalation R QIDPRN PRN 07/17/25
aerosol inhaler (Ventolin HFA) shortness of breath or wheezing
apixaban 2.5 mg tablet (Eliquis) 2.5 mg PO BID Blood Clot 07/17/25
Prevention/Tx
cyclosporine 0.05 % eye drops in a 1 drp BOTH EYES Q12H Eye Condition 07/17/25
dropperette (Restasis)
diazepam 5 mg tablet 2.5 mg PO BIDPRN PRN axniety 07/17/25
omeprazole 20 mg tablet,delayed 20 mg PO BID Gastrointestinal Issue 07/17/25
release
Review of Systems
Vital Signs
Temp Pulse Resp BP Pulse Ox
98.2 F 84 16 134/59 96
07/18/25 10:58 07/18/25 10:58 07/18/25 10:58 07/18/25 08:56 07/18/25 10:58
Physical Exam
Exam
General: Well Developed, Well Nourished and No Apparent Distress
HEENT: Normocephalic
Respiratory: Clear
Cardiac: S1/S2
GI: Soft, Non Tender, Non Distended and Normal Bowel Sounds
Results
WBC 11.1 10^3/uL (4.8-10.8) H 07/18/25 08:16
Hgb 8.4 g/dL (12.0-16.0) L 07/18/25 08:16
Hct 24.9 % (37.0-47.0) L 07/18/25 08:16
MCV 94.7 fL (81.0-99.0) 07/18/25 08:16
Plt Count 316 10^3/uL (130-400) 07/18/25 08:16
Absolute Neuts (auto) 8.6 10^3/uL (1.4-6.5) H 07/18/25 08:16
Sodium 133 mmol/L (135-145) L 07/18/25 08:16
Potassium 4.0 mmol/L (3.5-5.1) 07/18/25 08:16
Chloride 103 mmol/L (98-107) 07/18/25 08:16
Carbon Dioxide 26 mmol/L (22-30) 07/18/25 08:16
BUN 22 mg/dl (7-17) H 07/18/25 08:16
Creatinine 1.2 mg/dL (0.6-1.0) H 07/18/25 08:16
Calcium 8.6 mg/dl (8.4-10.2) 07/18/25 08:16
Total Bilirubin 1.0 mg/dl (0.2-1.3) 07/18/25 08:16
AST 35 U/L (14-36) 07/18/25 08:16
ALT 24 U/L (0-35) 07/18/25 08:16
Alkaline Phosphatase 112 U/L (38-126) 07/18/25 08:16
Diagnostic Image Results:
Prior GI Procedures:
EGD:
Colonoscopy:
Assessment / Plan
-
89 year old female with h/o pA-fib, HTN, hyperlipidemia, HFpEF, CKD stage III who recently had EGD with intervention (APC of GAVE) and was admitted for pRBC transfusion as her Hgb was noted 6.6.
Impression / Rec:
1. 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 Sent to ER for pRBC transfusion as her Hgb was noted to be 6.6. Appropriate response thereafter, stable. Can d/c home if tolerating normal diet. GI
s/o.
Total Time Spent with Patient (in minutes): 55
-
-
Thank you for consultation and allowing me to participate in the patient's care. Please call the motion picture projectionist GI physician during the after hours with any questions or concerns.
[2025-07-18] MEDS: MUCINEX 600 MG PO ×2 (11:29→20:09)
[2025-07-18] MEDS: ZITHROMAX 500 MG PO (11:29)
--- NOTE | 2025-07-18 16:42 | CM ---
Initial assessment completed with patient whose son lives with her in a 1 story home plus finished basement home with B/B on main level, 3 steps to enter. 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 Also in
the house is a RW, rollator and w/ch which she never uses in the home. No in-home services. Does have HC-POA. Does have [employer] benefits through 's service. No psychiatric hospitalizations. PCP is Dr. Tyler Cabral. Pharmacy is
[facility] in [place] in [place]. Discharge POC: TBD.
[2025-07-18] MEDS: LIPITOR 20 MG PO (20:09)
[2025-07-18] MEDS: TENORMIN 25 MG PO (20:09)
[2025-07-19 03:55] VITALS: BP 118/61
[2025-07-19 06:00] VITALS: BMI 31.3
[2025-07-19 07:00] VITALS: BP 133/67
[2025-07-19] MEDS: PROTONIX 40 MG PO (07:41)
[2025-07-19] MEDS: LASIX 20 MG PO (07:41)
[2025-07-19] MEDS: RESTASIS 0.05% OPHTHALMIC EMULSION 1 DROPS BOTH EYES (07:41)
[2025-07-19] MEDS: MUCINEX 600 MG PO (07:41)
[2025-07-19] MEDS: ZITHROMAX 250 MG PO (07:41)
[2025-07-19] MEDS: FLUSH (NSS) 1 FLUSH IV (07:42)
[2025-07-19] MEDS: VITAMIN D3 (cholecalciferol) 50 MCG PO (07:42)
[2025-07-19] MEDS: ALDACTONE 12.5 MG PO (07:42)
[2025-07-19] MEDS: VALIUM 2.5 MG PO (07:50)
[2025-07-19 08:16] LABS: Hematocrit 23.8 % (37.0-47.0); Hemoglobin 7.6 g/dL (12.0-16.0); Mean Corp Hgb Conc. 31.9 g/dL (33.0-37.0); Mean Corpuscular Volume 97.9 fL (81.0-99.0); Platelet Count 291 10^3/uL (130-400); Red Cell Dist. Width 13.7 % (11.5-14.5)
[2025-07-19 09:12] LABS: Blood Urea Nitrogen 20 mg/dl (7-17); Calcium 8.2 mg/dl (8.4-10.2); Carbon Dioxide 26 mmol/L (22-30); Chloride 103 mmol/L (98-107); Estimated Creatinine Clearance 29 ml/min; Glucose 89 mg/dl (70-99); Potassium 4.1 mmol/L (3.5-5.1); Sodium 135 mmol/L (135-145); eGFR 43.54
[2025-07-19 09:42] VITALS: BMI 31.3
[2025-07-19 11:00] VITALS: BP 128/63
--- NOTE | 2025-07-19 12:57 | W.PN.HOSP.TC ---
Today's Communication/Plan
-
Discharge planning today
Assessment / Plan
Assessment / Plan
Physical exam:
General: Well Developed, Well Nourished and No Apparent Distress
HEENT: Normocephalic, Atraumatic and Moist Mucous Membranes
Respiratory: Clear to Auscultation; Negative Wheezes, Rales or Rhonchi
Cardiac: Regular Rhythm and S1/S2
GI: Soft, Nontender and Nondistended
Musculoskeletal: No Clubbing, No Cyanosis and No Edema
Neuro: Awake, Alert and Oriented, no neurological deficit
Psych: Calm
A/P:
#Acute on chronic anemia
#Chronic upper GI bleed
Hemoglobin 7.6 today
GI consult appreciated
Advance diet as tolerated
Holding off on Eliquis
Discussed with patient about Watchman procedure and she did not know but she will discuss with her road engineer, Dr. Vail.
She feels well for discharge today. PT OT recommends home health.
Prior to today:
Baseline at 9�11
Likely due to upper GI bleeding
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
S/p 1 PRBC in the ER after typing/crossmatch.
Will monitor her H&H
Plan for second PRBC pending H&H
Will hold off on Eliquis
Start Protonix p.o. 40 mg once daily from tomorrow, patient received 80 mg Protonix IV in the ER.
#Paroxysmal A-fib
Continue atenolol
Will hold off on Eliquis for next 5 days, as recommended by GI
Patient has cardiology outpatient will schedule for 07/20/2025, consideration for Watchman.
Monitor on telemetry
#Heart failure with preserved ejection fraction
Patient appears euvolemic
Echo�11/08/2024�LV ejection fraction is 60-65% , Stage II diastolic dysfunction
She will receive 1 PRBC
Continue furosemide
Monitor I's/O's, weights
Continue spironolactone
Continue atenolol
#Acute bronchitis
Chest x-ray no acute chest pathology
Planning on doing azithromycin and Mucinex-I do not have records of what she took before but upon discussion with patient she said that she took doxycycline about 2 weeks ago. She is doing well with Mucinex and azithromycin so we will complete 5
days course.
Prior to today:
S/p course of antibiotics
Her symptoms have improved
Still has some cough, will do lozenges
#CKD stage IIIb
She is at her baseline
Creatinine today�1.2
Monitor BMP
#Hyperlipidemia
Continue atorvastatin
#Anxiety disorder
Continue diazepam as needed
Diet�low-sodium
DVT prophylaxis�SCDs
Full code
Anticipated Discharge: Today
Subjective/Interval History
-
Date of Service: July 19, 2025
Patient feels well. Normal bowel movement, brown stools. Also cough improving.
Objective Data
-
Labs:
Laboratory Results
07/19/25
05:15
WBC 10.7
Hgb 7.6 L
Hct 23.8 L
Plt Count 291
Sodium 135
Potassium 4.1
Chloride 103
Carbon Dioxide 26
BUN 20 H
Creatinine 1.2 H
Glucose 89
Calcium 8.2 L
Vital Signs:
Vital Signs
Temp Pulse Resp BP Pulse Ox
97.8 F 76 18 128/63 96
07/19/25 11:00 07/19/25 11:00 07/19/25 11:00 07/19/25 11:00 07/19/25 11:00
I&O
07/18/25 07/19/25 07/20/25
06:59 06:59 06:59
Intake Total 490 / 490 830 / 830 250 / 250
Output Total 1150 / 1150
Balance 490 / 490 -320 / -320 250 / 250
--- NOTE | 2025-07-19 13:00 | W.DCSUMMARY ---
Discharge Summary
Discharge Data
Date of Admission: 07/17/25
Date of Discharge: 07/19/25
-
Pending Results: No
Hospital Course
Patient 89 years old female with multiple comorbidities including hypertension, hyperlipidemia, CHF, A-fib, CKD, came into the hospital after an EGD post procedure. Patient had GAVE status post APC and after procedure hemoglobin was noted to be low
so she was sent to the hospital and she had blood transfusion but did not feel well afterwards and had to be kept in observation. Patient was seen by GI who advance her diet. Her hemoglobin drifted down slowly but remained stable. Her hemoglobin
upon discharge 7.6. Her creatinine upon discharge 1.2. She also had some evidence of bronchitis and we started her on Mucinex and short course of oral antibiotics. Her chest x-ray had no evidence of pneumonia. She is going to discuss with her
drain layer as outpatient if she is a candidate for Watchman procedure. GI recommended to hold Eliquis for 5 days postprocedure. She participated with PT OT and recommended home health. I had case manager specialist to work with home health arrangements
upon discharge. Otherwise, patient is hemodynamically stable and agreeable to go home today.
Discharge Plan
-
Patient Disposition: Home with Home Care
Discharge Diagnosis/Procedures: Acute blood loss anemia. 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 Acute bronchitis.
Diet: Low Cholesterol
Activity: As tolerated
Blood Work: Please PCP to order CBC, BMP within 1 week
Referrals:
Naif Powell MD [Active, Gastroenterology] - in one to two weeks
Tyler Cabral MD [Family Provider, Internal Medicine] - in less than 1 week
Wes Vail MD [Active, Cardiology] - in two to three days
Additional Discharge Medication Instructions: Consideration of Watchman procedure to discuss with cardiology as outpatient.
Prescriptions:
New
azithromycin 250 mg Tablet
250 mg PO DAILY 3 Days Qty: 3 0RF
guaifenesin 600 mg Tablet Extended Release 12hr
600 mg PO Q12 5 Days Qty: 10 0RF
Continued
cholecalciferol (vitamin D3) 1,000 UNIT tablet
2,000 unit PO DAILY
spironolactone 25 mg Tablet
12.5 mg PO DAILY
atorvastatin [Lipitor] 20 mg Tablet
20 mg PO HS
atenolol 25 mg Tablet
25 mg PO HS
furosemide 20 mg Tablet
20 mg PO DAILY
diazepam 5 mg Tablet
2.5 mg PO BIDPRN PRN (Reason: axniety)
omeprazole 20 mg Tablet,Delayed Release (Dr/Ec)
20 mg PO BID
cyclosporine [Restasis] 0.05 % Dropperette
1 drp BOTH EYES Q12H
albuterol sulfate [Ventolin HFA] 90 mcg/actuation HFA aerosol inhaler
2 puff inhalation R QIDPRN PRN (Reason: shortness of breath or wheezing)
Held
Eliquis 2.5 mg Tablet
2.5 mg PO BID
Hold Instructions: Resume on 07/24/25.
Discharge Orders:
Discharge Patient (As Directed); Ordered 07/19/25
Ordered By: Ezio Porter
Discharge Date and Time
Print Language: MICRONESIAN
--- NOTE | 2025-07-19 13:56 | CM ---
Addendum entered by Sabrina Yaets 07/19/25 13:57:
ERROR: Daughter to transport. JK
Original Note:
CM met with pt at bedside to offer VN. Pt declined. Spouse to transport home. Nursing updated.
== END 2025-07-19 15:24 | disposition home or self-care (01) ==
LOC: 4 EAST ACU 16:21
PROVIDERS: Physician Assistant Medical; Student in an Organized Health Care Education/Training Program; ADMITTING PHYSICIAN Student in an Organized Health Care Education/Training Program; ATTENDING PHYSICIAN Hospitalist; CONSULT PHYSICIAN Internal Medicine Gastroenterology; EMERGENCY PHYSICIAN Student in an Organized Health Care Education/Training Program; FAMILY PHYSICIAN Internal Medicine Geriatric Medicine
DX: K31.811 Angiodysplasia of stomach and duodenum with bleeding (principal); D62 Acute posthemorrhagic anemia; J20.9 Acute bronchitis, unspecified; E78.5 Hyperlipidemia, unspecified; I50.32 Chronic diastolic (congestive) heart failure; N18.32 Chronic kidney disease, stage 3b; I13.0 Hypertensive heart and chronic kidney disease with heart failure and stage 1 through stage 4 chronic kidney disease, or unspecified chronic kidney disease; F41.9 Anxiety disorder, unspecified; I48.0 Paroxysmal atrial fibrillation; K44.9 Diaphragmatic hernia without obstruction or gangrene; Z79.01 Long term (current) use of anticoagulants; Z79.899 Other long term (current) drug therapy
CPT/HCPCS: 36430; 80048; 80053; 85014; 85018; 85025; 85027; 86850; 86900; 86901; 86920; 93005; 94640; 96374; 97162; 97166; 99285; G0378; P9016

== ENCOUNTER → 2025-07-28 09:28 | Outpatient (REF) | payer MEDICARE, OTHER, SELFPAY ==
[2025-07-28 10:56] LABS: Albumin 3.9 g/dl (3.5-5.0); Blood Urea Nitrogen 34 mg/dl (7-17); Calcium 8.6 mg/dl (8.4-10.2); Carbon Dioxide 29 mmol/L (22-30); Chloride 99 mmol/L (98-107); Glucose 216 mg/dl (70-99); Potassium 3.8 mmol/L (3.5-5.1); Sodium 137 mmol/L (135-145); eGFR 33.31
== END ==
LOC: REG 09:28
PROVIDERS: ATTENDING PHYSICIAN Internal Medicine Geriatric Medicine
DX: I10 Essential (primary) hypertension (principal); E87.1 Hypo-osmolality and hyponatremia
CPT/HCPCS: 36415; 80069

== ENCOUNTER 2025-08-05 18:04 | Inpatient (IN) | payer MEDICARE, OTHER, SELFPAY ==
[2025-08-05 12:40] VITALS: BP 119/70
[2025-08-05 13:02] LABS: Hematocrit 25.6 % (37.0-47.0); Hemoglobin 8.1 g/dL (12.0-16.0); Mean Corp Hgb Conc. 31.6 g/dL (33.0-37.0); Mean Corpuscular Volume 91.8 fL (81.0-99.0); Nucleated Red Blood Cells % 0 %; Platelet Count 357 10^3/uL (130-400); Red Cell Dist. Width 14.4 % (11.5-14.5)
[2025-08-05 13:13] LABS: ALT (SGPT) 35 U/L (0-35); AST (SGOT) 40 U/L (14-36); Albumin 4.1 g/dl (3.5-5.0); Alkaline Phosphatase 106 U/L (38-126); Blood Urea Nitrogen 42 mg/dl (7-17); Calcium 8.7 mg/dl (8.4-10.2); Carbon Dioxide 26 mmol/L (22-30); Chloride 104 mmol/L (98-107); Glucose 89 mg/dl (70-99); Potassium 4.2 mmol/L (3.5-5.1); Sodium 136 mmol/L (135-145); Total Protein 8.4 g/dl (6.3-8.2); eGFR 33.31
--- NOTE | 2025-08-05 15:24 | ED.GENMED ---
History of Present Illness
General
Chief Complaint: Weakness
Source: patient
Time Seen by Provider: 08/05/25 14:54
History of Present Illness
History of Present Illness:
Patient with recent GI bleed. Presents with ongoing shortness of breath with exertion. Progressive in nature. Stools appear normal. Seen by primary care who was concerned about possible further anemia/GI bleed.
Past History
Past History
ED Past Medical History: Arrthythmia (Atrial fibrillation), GERD, HTN, Hypothyroidism and Other (back pain); Negative Cancer
ED Past Surgical History: Gynecological, Orthopedic and Tonsilectomy
Social History
Tobacco: Non-smoker
Alcohol: None
Drug: None
Personal:
Living: with family
Employment: Retired
Family History
Family History: CAD (Son with CAD)
Review of Systems
Review of Systems
All Other Systems: Not applicable
Cardiac: Reports chest pain
ABD/GI: Denies abdominal pain
Phy Exam
Physical Exam
Physical Exam:
GENERAL: Alert and oriented in no apparent distress
EYE: Orbits normal.
NECK: Supple, no significant adenopathy.
ENT: Pharynx without erythema
CARDIAC: Regular rate and rhythm without any obvious murmurs.
LUNGS: No respiratory distress however Rales in bases.
ABDOMEN: Soft, without focal tenderness or distention
NEUROLOGICAL: Alert and oriented , grossly non-focal
SKIN: Warm and dry, no rash or lesion, no discoloration, skin intact.
MUSCULOSKELETAL: Mild bilateral pitting edema.
PSYCH: Normal and appropriate interaction.
Course
Orders/Labs/Results
Orders:
Orders
08/05/25 12:42
EKG [Electrocardiogram (*1)] Urgent
Reason for Study: Chest Pain
08/05/25 12:43
EKG- Treatment ONCE
08/05/25 12:53
Type And Crossmatch [Type+Screen] Urgent
CBC/With Diff [Complete Blood Count/With Diff] Urgent
CMP [Comprehensive Metabolic Panel] Urgent
NT-proBNP Urgent
Comment: ADD ON
08/05/25 15:06
Add On- LAB Urgent
Tests Added?: probnp
CXR2 [CR Chest - 2 Views ] Urgent
Comment:
Reason For Exam: sob
08/05/25 16:38
Furosemide [Lasix] 40 mg IV NOW STA
08/05/25 16:44
Troponin I Urgent
08/05/25 17:16
Admit/Transfer Patient As Directed
Co-Sign Provider:
Level of Care: Inpatient admission
Assign to:: Telemetry
Physician / Group: salomón ledesma
Diagnosis: Acute CHF exacerbation
Reason for Telemetry: Subacute Heart Failure
Date to Stop Telemetry: 08/07/25
Time to Stop Telemetry: 11:00
Reason for Hospitalization: Acute CHF exacerbation
Expected length of stay greater than two midnights?: Yes
ELOS- Estimated Length of Stay in days: 2
I certify the patient meets the requirements for IP care: Yes
08/05/25 17:17
PRN Pain Medication Management As Directed
May give lesser potent ordered pain med per pt: Yes
preference::
Protocol:: Medication orders for pain may be administered in a
manner that supports deferring to patient preference
when the pt is:
- Requesting an ordered lesser potent pain medication.
Least to most potent pain medications are defined
as: acetaminophen < NSAID < tramadol < opioids
(morphine, oxycodone, hydromorphone).
- Requesting a lesser dose of the same medication IF
ORDERED.
- Requesting a less intrusive route of administration
if both routes are prescribed by the provider (PO <
IV).
08/05/25 17:19
Code Status As Directed
Resuscitation Status: Full Code
08/07/25 11:00
DC Protocol for Telemetry ONCE
Abnormal Lab Results
08/05/25
12:53
RBC 2.79 L 10^6/uL
(4.20-5.40)
Hgb 8.1 L g/dL
(12.0-16.0)
Hct 25.6 L %
(37.0-47.0)
MCHC 31.6 L g/dL
(33.0-37.0)
Absolute Lymphs (auto) 1.1 L 10^3/uL
(1.2-3.4)
Absolute Monos (auto) 0.9 H 10^3/uL
(0.1-0.6)
Lymphocytes % 13.6 L %
(20.5-51.1)
Monocytes % 11.8 H %
(1.7-9.3)
BUN 42 H mg/dl
(7-17)
Creatinine 1.5 H mg/dL
(0.6-1.0)
AST 40 H U/L
(14-36)
Total Protein 8.4 H g/dl
(6.3-8.2)
08/05/25 12:53
08/05/25 12:53
Vital Signs
Initial and Last Documented VS:
Initial Vital Signs
Temp Pulse BP Pulse Ox
97.6 F 80 119/70 97
08/05/25 12:40 08/05/25 12:40 08/05/25 12:40 08/05/25 12:40
Last Documented Vital Signs
Temp Pulse Resp BP Pulse Ox
97.6 F 77 18 137/63 92
08/05/25 12:40 08/05/25 16:45 08/05/25 16:45 08/05/25 16:00 08/05/25 16:45
MDM/Problems Addressed
Differential Diagnosis Includes:
Patient describing significant shortness of breath with exertion with even minimal movement. Also some intermittent chest pressure with this. Has had 5 to 6 pound weight gain recently. Some edema. Rales in the bases. I am somewhat suspicious of
some component of heart failure. Patient is anemic however improved from discharge. Would like this a fairly unlikely explanation for her progressive symptoms.
*Pulse Oximetry
SaO2: 97
Oxygen Mode of Delivery: Room air
Patient hypoxic: no
*EKG
Interpreted by ED Provider?: Yes
Interpretation: abnormal
Comparison EKG: changes noted
Heart Rate: 79
Rate: normal
Rhythm: sinus
Clarence: normal axis
Interval: normal interval
QRS Pattern: left vent hypertrophy
Ischemia: non-specific ST changes
*Critical Care Note
Total Time (30-74mins, 75-104mins- exclusive of procedures): Not Applicable
Data Reviewed
Review of Other/Old Records Reveals: Labs, Records, Radiology Studies, Testing and Discharge Summary
Update Note
Update Note:
1.5 kg weight gain, leg edema, rales in the bases, cephalization on x-ray with a stable hemoglobin. Rectal exam negative. Feel this is more likely the etiology. Will be admitted for further care
ED Attending Note
-
Portions of this chart may have been created with voice recognition software.� Occasional wrong word or��sound alike� substitutions may have occurred due to the inherent limitations of voice recognition software.
Discharge Plan
Departure
Patient Disposition: Admit
Date of Disposition: 08/05/25
Time of Disposition: 16:39
Presentation/result/management discussed w/ accepting MD/DO: Hospitalist
Discharge Problem:
Severe dyspnea on exertion/CHF, Anemia, Recent GI bleed
Prescriptions:
No Action
cholecalciferol (vitamin D3) 1,000 UNIT tablet
2,000 unit PO DAILY
spironolactone 25 mg Tablet
12.5 mg PO DAILY
atorvastatin [Lipitor] 20 mg Tablet
20 mg PO DAILY
atenolol 25 mg Tablet
25 mg PO HS
furosemide 20 mg Tablet
20 mg PO DAILY
diazepam 5 mg Tablet
2.5 mg PO BIDPRN PRN (Reason: anxiety)
omeprazole 20 mg Tablet,Delayed Release (Dr/Ec)
20 mg PO BID
cyclosporine [Restasis] 0.05 % Dropperette
1 drp BOTH EYES Q12H
albuterol sulfate [Ventolin HFA] 90 mcg/actuation HFA aerosol inhaler
2 puff inhalation R QIDPRN PRN (Reason: shortness of breath or wheezing)
Referrals:
Tyler Cabral MD [Family Provider, Internal Medicine]
Interventions
Interventions:
*Risk Screen - Suicide Last Done: 08/05/25 12:40
*General Assessment Last Done: 08/05/25 12:40
*Neglect/Abuse Screening Last Done: 08/05/25 12:40
*ED COVID-19 Vaccine History Last Done: 08/05/25 12:40
*ED Influenza Vaccine History Last Done: 08/05/25 12:40
ED- Cardiac Assessment Last Done: 08/05/25 15:34
ED- Neurological Assessment Last Done: 08/05/25 15:34
ED- Pulmonary Assessment Last Done: 08/05/25 15:34
Discharge Date and Time
Print Language: BELARUSIAN
[2025-08-05 16:00] VITALS: BP 137/63
[2025-08-05] MEDS: LASIX 40 MG IV (16:45)
[2025-08-05 17:19] LABS: Troponin I 0.014 ng/ml
--- NOTE | 2025-08-05 18:02 | HPS.HSE ---
Addendum entered and electronically signed by Liz Estevez MD 08/05/25 18:55:
Attending�addendum:
I saw and evaluated the patient independently. I reviewed and discussed the resident�s note and agree with findings and plan as documented in the resident�s note.� patient seen and examined at bedside, patient presented to the ER with shortness of
breath, dyspnea on exertion, orthopnea, weight gain, lower extremity edema at baseline but fullness in the stomach, patient also was complaining of chest heaviness.
Physical�exam:
GENERAL : Patient is awake, alert, oriented x3
HEENT: Nonicteric sclerae, PERRLA, EOMI. Oropharynx clear. Moist mucous membranes. Conjunctivae appear well perfused.
CHEST: Chest wall is nontender.
HEART: Regular rate and rhythm without murmurs.
LUNGS: Rales bilaterally.
ABDOMEN: Soft, positive bowel sounds, nontender, no organomegaly.
RECTAL: Deferred.
MUSCLES/EXTREMITIES: No abnormal range of motion, no swelling.SKIN: No rash, no excessive bruising, petechiae, or purpura.
NEUROLOGIC: Cranial nerves II-XII intact without motor/sensory deficit.
�
Assessment/plan:
Acute CHF Exacerbation:
Patient has acute on chronic diastolic congestive heart failure
Patient presented with shortness of breath with dyspnea on exertion, orthopnea
BNP level is elevated at 4780
Troponin level is 0.014
Continue IV diuresing in form of Lasix 40 mg twice daily
Continue home spironolactone
Daily weight.�
Strict I's and O's.�
Consulted cardiology.�
Most recent echo 11/08/2024 shows :
Normal left ventricular size, wall thickness and systolic function. No regional
wall motion abnormalities are seen. LV ejection fraction is 60-65% by Santana's
method of discs. Stage II diastolic dysfunction suggestive of abnormal
relaxation and increased filling pressures.
Mitral valve opens normally. Thickened mitral valve leaflets. Posterior mitral
annular calcification. There is at least mild to moderate mitral regurgitation
which could have been underestimated due to mitral annular calcification.
Mildly dilated left atrium. Indexed LA volume is mildly abnormal (35-41 mL/m2).
Mild tricuspid regurgitation. Tricuspid valve opens normally. PA systolic
pressure 35 mmHg assuming right atrial pressure of 3 mmHg.
Since echocardiogram June 2023, there is no significant change.
Defer repeat echo to cardiology.
Iron deficiency anemia.
Hemoglobin stable.
Recent GI bleeding.
Patient denies black stool.
Paroxysmal A-fib.
Currently sinus rhythm.
Eliquis on hold.
Continue atenolol.
History�of�hypertension
Continue home meds.
History of hyperlipidemia
Continue�statin
CODE STATUS: Full code
DVT prophylaxis: SCDs
Diet: Cardiac diet
�
Total time spent on today�s encounter was 75 minutes which included time spent in counseling the patient/family regarding diagnosis and treatment plan as listed above, goals of care, and symptom management. Case was discussed with nursing staff,
specialists, and care coordinators/case management. All labs and imaging personally reviewed by me. Remainder the time spent in detailed review of previous records, lab data, imaging, and other medical provider documentation.
Original Note:
Family Physician
-
Family Physician: Tyler Cabral
Chief Complaint
-
Shortness of breath and fatigue
History of Present Illness
Patient is a 89y/o F with PMH of hypertension, hyperlipidemia, HFpEF, A-fib, CKD presented to ED with shortness of breath and fatigue. Today she had a scheduled f/u appointment with MAKI Lopez who referred her to the ED. She has been experiencing
shortness of breath over 2 weeks. She reports SOB with resting and worse with exertion. She could not lay flat because of SOB. She has pressure like non radiating chest pain. She feels very tired and takes multiple naps a day. Denies palpitations,
nausea/vomiting, abdominal pain. Normal brown bms, denies blood in urine.
She was admitted to 07/19 - 07/19/2025 for anemia after having endoscopy for ongoing upper GI bleeding.
Medical History
Past Medical History
Past Medical History: Reports Arrhythmia, CHF, GERD, HTN, Hypercholesterolemia and Hypothyroidism
Past Surgical History: Reports Appendectomy, Gynocological, Orthopedic and Tonsilectomy
Social History
Tobacco: Non-smoker
Alcohol: None
Drug: None
Personal:
Living: With Family (lives with the son)
Employment: Retired
Family History
Family History: Not pertinent
Allergies / Home Medications
Allergies reflects when Allergies were last updated in [facility].
Home Medications with original date entered in [facility]
Allergy/Medication List:
Allergies
Allergy/AdvReac Type Severity Reaction Status Date / Time
latex Allergy Rash Verified 07/17/25 12:27
levofloxacin (From Levaquin) Allergy TENDON Verified 07/17/25 12:27
RUPTURE
mirtazapine Allergy HALLUCINATI Verified 07/17/25 12:27
ONS
simvastatin Allergy MYALGIAS Verified 07/17/25 12:27
Fcezkee-UFY-BmC Reductase Allergy MYALGIAS Verified 07/17/25 12:27
Inhibitor (Ghpzugd-Lgu-Yld
Reductase Inhibitor)
Home Medications
cholecalciferol (vitamin D3) 25 mcg (1,000 unit) tablet 2,000 unit PO DAILY Supplement 08/26/11
spironolactone 25 mg tablet 12.5 mg PO DAILY Fluid Retention/Swelling 03/12/23
atenolol 25 mg tablet 25 mg PO HS Heart Disease/Condition 04/10/24
atorvastatin 20 mg tablet (Lipitor) 20 mg PO DAILY High Cholesterol 04/10/24
furosemide 20 mg tablet 20 mg PO DAILY EDEMA 04/10/24
albuterol sulfate 90 mcg/actuation aerosol inhaler (Ventolin HFA) 2 puff inhalation R QIDPRN PRN shortness of breath or wheezing 07/17/25
cyclosporine 0.05 % eye drops in a dropperette (Restasis) 1 drp BOTH EYES Q12H Eye Condition 07/17/25
diazepam 5 mg tablet 2.5 mg PO BIDPRN PRN anxiety 07/17/25
omeprazole 20 mg tablet,delayed release 20 mg PO BID Gastrointestinal Issue 07/17/25
Review of Systems
-
History Source: Patient
Constitutional: Reports Fatigue
EENT: Reports No Symptoms
Respiratory: Reports Trouble Breathing
Cardiac: Reports Chest Pain
Abdomen/GI: Reports No Symptoms
: Reports No Symptoms
Musculoskeletal: Reports Joint Swelling (chronic)
Skin: Reports No Symptoms
Neurological: Reports No Symptoms
Endocrine: Reports No Symptoms
Hematologic/Lymphatic: Reports No Symptoms
Psych: Reports Calm
Physical Exam
Vital Signs
Vital Signs
Temp Pulse Resp BP Pulse Ox
97.6 F 77 18 137/63 92
08/05/25 12:40 08/05/25 16:45 08/05/25 16:45 08/05/25 16:00 08/05/25 16:45
Physical Exam
General: Well Developed, Well Nourished and No Apparent Distress
HEENT: NormoCephalic and Moist mucous membranes
Respiratory: Crackles (bl base of the lungs) and Non Labored Respirations
Cardiac: S1/S2 and Regular Rhythm
Breast: Deferred by me
GI: Soft, Non Tender, Non Distended and Normal Bowel Sounds
Rectal: Brown
Genito-urinary: Deferred by me
Musculoskeletal: No Clubbing, No Cyanosis, Edema, Left Lower Extremity and Edema, Right Lower Extremity
Skin: Warm and Dry
Neuro: AO x 3, No Motor Deficits, Nonfocal/grossly intact, Cranial Nerves Intact and No Sensory Deficits
Hematologic/Lymphatic: No Lymphadenopathy
Psych: Calm
Laboratory Results
-
08/05/25 12:53
08/05/25 12:53
Laboratory Results
Total Bilirubin 0.4 mg/dl (0.2-1.3) 08/05/25 12:53
AST 40 U/L (14-36) H 08/05/25 12:53
ALT 35 U/L (0-35) 08/05/25 12:53
Alkaline Phosphatase 106 U/L (38-126) 08/05/25 12:53
Troponin I 0.014 ng/ml 08/05/25 16:44
Impression/Plan
-
IMPRESSION:
Patient is a 89y/o F with PMH of hypertension, hyperlipidemia, HFpEF, A-fib, CKD presented to ED with shortness of breath and fatigue. Today she had a scheduled f/u appointment with GI who referred her to the ED. She has been experiencing
shortness of breath over 2 weeks. She reports SOB with resting and worse with exertion.
PLAN:
Acute exacerbation of HFpEF
-SOB, orhtopnea, bl leg swelling, chest pain
-Troponin 0.014- neg
-ProBNP- 4780 - HF
-Started IV Lasix 40mg BID, continue spironolactone 12.5 mg PO QD
-low Na diet
-Cardiology consulted, input appreciated
-Watch I/O
-weight daily
Echo 11/08/2024
-LV ejection fraction is 60-65%
-Stage II diastolic dysfunction
-mild to moderate mitral regurgitation
-Mild tricuspid regurgitation
-Mildly dilated left atrium
Paroxysmal A-fib
-On exam regular rhythm
-ecg - unremarkable
-admitted to telemetry
-Continue atenolol 25mg PO
-Eliquis on hold since discharge from 07/17 because of hx of bleeding/anemia
-She did not have Watchman procedure
Iron deficiency Anemia
-Hx of upper GI bleeding, 07/17 Hb was 6.6, received PRBC transfusion
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
-she has a scheduled appt for IV transfuion weekly starting in
-07/17 Ferritin 17.5
-Today Hb 8.1
Chronic Kidnesy Disease stage 3b
-eGFR 33, Cr 1.5 (baseline1.2)
-Monitor BMP
Hyperlipidemia
-Continue atorvastatin 20mg PO QD
Anxiety disorder
- Continue diazepam prn
GERD
-Continue Pantoprazole 40mg PO BID
Hypothyroidism
Diet�low-sodium
DVT prophylaxis�SCDs
Full code
[2025-08-05 19:00] VITALS: BP 123/67; BMI 29.9
[2025-08-05 19:51] VITALS: BMI 29.9
[2025-08-05] MEDS: PROTONIX 40 MG PO (19:55)
[2025-08-05] MEDS: RESTASIS 0.05% OPHTHALMIC EMULSION 1 DROPS BOTH EYES (19:59)
--- NOTE | 2025-08-05 20:00 | PTCARENOTE ---
Pt received from day shift RN at 1915. Pt pleasant, AAOx3, VSS, and able to ambulate into room with assistance. Pt receptive to room and call brewster. Pt bed in lowest position and call brewster within reach. Pt educated on importance of call brewster usage,
pt relays somewhat understanding and cooperation. Bed alarm placed and plugged in. Will continue with current plan of care.
[2025-08-05] MEDS: TENORMIN 25 MG PO (21:16)
[2025-08-05 21:31] LABS: Urine Character Clear (Clear)
[2025-08-05 23:00] VITALS: BP 106/50
[2025-08-06 03:00] VITALS: BP 118/46
[2025-08-06 05:55] VITALS: BMI 29.8
[2025-08-06 07:01] LABS: Hematocrit 23.4 % (37.0-47.0); Hemoglobin 7.6 g/dL (12.0-16.0); Mean Corp Hgb Conc. 32.5 g/dL (33.0-37.0); Mean Corpuscular Volume 89.3 fL (81.0-99.0); Platelet Count 338 10^3/uL (130-400); Red Cell Dist. Width 14.5 % (11.5-14.5)
[2025-08-06 07:25] VITALS: BP 133/65
[2025-08-06 07:28] LABS: Blood Urea Nitrogen 37 mg/dl (7-17); Calcium 8.7 mg/dl (8.4-10.2); Carbon Dioxide 27 mmol/L (22-30); Chloride 104 mmol/L (98-107); Estimated Creatinine Clearance 23 ml/min; Glucose 101 mg/dl (70-99); Magnesium 2.1 mg/dl (1.6-2.3); Potassium 4.3 mmol/L (3.5-5.1); Sodium 135 mmol/L (135-145); eGFR 33.31
--- NOTE | 2025-08-06 08:22 | W.PN.HOSP.TC ---
Addendum entered and electronically signed by Liz Estevez MD 08/06/25 13:43:
Attending�addendum:
I saw and evaluated the patient independently. I reviewed and discussed the resident�s note and agree with findings and plan as documented in the resident�s note.� p patient seen and examined at bedside, denies any chest pain , shortness of breath
Improved, no abdominal pain, no nausea, no vomiting, no diarrhea or constipation.
lower extremity edema improved.
Physical�exam:
GENERAL : Patient is awake, alert, oriented x3
HEENT: Nonicteric sclerae, PERRLA, EOMI. Oropharynx clear. Moist mucous membranes. Conjunctivae appear well perfused.
CHEST: Chest wall is nontender.
HEART: Regular rate and rhythm without murmurs.
LUNGS: Rales bilaterally.
ABDOMEN: Soft, positive bowel sounds, nontender, no organomegaly.
RECTAL: Deferred.
MUSCLES/EXTREMITIES: +1 edema bilaterally.
NEUROLOGIC: Cranial nerves II-XII intact without motor/sensory deficit.
�
Assessment/plan:
Acute CHF Exacerbation:
Patient has acute on chronic diastolic congestive heart failure
Patient presented with shortness of breath with dyspnea on exertion, orthopnea
BNP level is elevated at 4780
Troponin level is 0.014
Continue IV diuresing in form of Lasix 20 mg today then start oral 40 mg tomorrow
Continue home spironolactone
Daily weight.�
Strict I's and O's.�
Consulted cardiology.�
Appreciate recommendaton
Iron deficiency anemia.
Hemoglobin stable.
Recent GI bleeding.
Patient denies black stool.
Proceed with iron IV infusion
Paroxysmal A-fib.
Currently sinus rhythm.
Eliquis on hold.
Continue atenolol.
History�of�hypertension
Continue home meds.
History of hyperlipidemia
Continue�statin
CODE STATUS: Full code
DVT prophylaxis: SCDs
Diet: Cardiac diet
�
Total time spent on today�s encounter was 55 minutes which included time spent in counseling the patient/family regarding diagnosis and treatment plan as listed above, goals of care, and symptom management. Case was discussed with nursing staff,
specialists, and care coordinators/case management. All labs and imaging personally reviewed by me. Remainder the time spent in detailed review of previous records, lab data, imaging, and other medical provider documentation.
Original Note:
Today's Communication/Plan
-
today at 4pm 20mg IV lasix once--> tomorrow transition to 40mg PO QD
Give Iron transfusion
Assessment / Plan
Assessment / Plan
IMPRESSION:
Patient is a 89y/o F with PMH of hypertension, hyperlipidemia, HFpEF, A-fib, CKD presented to ED with shortness of breath and fatigue. Today she had a scheduled f/u appointment with MAKI Lopez who referred her to the ED. She has been experiencing
shortness of breath over 2 weeks. She reports SOB with resting and worse with exertion.
PLAN:
Acute exacerbation of HFpEF
-SOB, orhtopnea, bl leg swelling, chest pain
-Troponin 0.014- neg
-ProBNP- 4780 - HF
-Cardiology consulted, input appreciated
-Likely 2/2 persistant presumably blood loss anemia
-Started IV Lasix 40mg BID, continue spironolactone 12.5 mg PO QD - Tm switch to 40mg Lasix PO QD
-low Na diet
-Watch I/O
-weight daily
Echo 11/08/2024
-LV ejection fraction is 60-65%
-Stage II diastolic dysfunction
-mild to moderate mitral regurgitation
-Mild tricuspid regurgitation
-Mildly dilated left atrium
Paroxysmal A-fib
-On exam regular rhythm
-ecg - unremarkable
-admitted to telemetry
-Continue atenolol 25mg PO
-Eliquis on hold since discharge from 07/17 because of hx of bleeding/anemia
-She did not have Watchman procedure
Iron deficiency Anemia
-Hx of upper GI bleeding, 07/17 Hb was 6.6, received PRBC transfusion
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
-she has a scheduled appt for IV transfuion weekly starting in
-07/17 Ferritin 17.5
-Hb 7.6 - gave 1 bag of 125mg IV Ferric Gluconate transfusion
Chronic Kidnesy Disease stage 3b
-eGFR 33, Cr 1.5 new baseline? (baseline1.2)
-Monitor BMP
Hyperlipidemia
-Continue atorvastatin 20mg PO QD
Anxiety disorder
- Continue diazepam prn
GERD
-Continue Pantoprazole 40mg PO BID
Hypothyroidism
Diet�low-sodium
DVT prophylaxis�SCDs
Full code
Anticipated Discharge: 24 - 48 hours
Subjective/Interval History
-
Date of Service: August 06, 2025
She has been walking in the room completing her basic needs. She states feeling so much better than yesterday. She still has SOB with walking but improved during resting. She denies chest pain, palpitations. She still feels tired.
Objective Data
-
Labs:
Laboratory Results
08/06/25
06:04
WBC 7.8
Hgb 7.6 L
Hct 23.4 L
Plt Count 338
Sodium 135
Potassium 4.3
Chloride 104
Carbon Dioxide 27
BUN 37 H
Creatinine 1.5 H
Glucose 101 H
Calcium 8.7
Vital Signs:
Vital Signs
Temp Pulse Resp BP Pulse Ox
98.5 F 73 16 118/46 94
08/06/25 03:00 08/06/25 03:00 08/06/25 03:00 08/06/25 03:00 11/27/25 03:00
Review of Systems
-
History Source: Patient
Constitutional: Reports Fatigue
EENT: Reports No Symptoms Reported
Respiratory: Reports Trouble Breathing
Cardiac: Reports Orthopnea
Abdomen/GI: Reports No Symptoms
Breast: Reports No Symptoms
Genitourinary: Reports No Symptoms
Musculoskeletal: Reports No Symptoms
Skin: Reports No Symptoms
Neuro: Reports No Symptoms
Endocrine: Reports No Symptoms
Hematologic / Lymphatic: Reports No Symptoms
Allergy / Immunology: Reports No Symptoms
Physical Exam
-
General: Well Developed, Well Nourished, No Apparent Distress, Comfortable and Conversant
HEENT: Normocephalic, Atraumatic and Moist Mucous Membranes
Respiratory: Crackles (mild bl base)
Cardiac: Regular Rhythm and S1/S2
Breast: Deferred by me
GI: Soft, Nontender, Nondistended and Normal Bowel Sounds
Rectal: Deferred by Provider
Genito-urinary: Deferred by me
Musculoskeletal: No Clubbing, No Cyanosis, Edema, Right Lower Extrem and Edema, Left Lower Extrem
Skin: Warm and Dry
Neuro: AO x 3, No Motor Deficits, Nonfocal/Grossly Intact and No Sensory Deficits
Hematologic / Lymphatic: No Lymphadenopathy
Psych: Calm
[2025-08-06] MEDS: ALDACTONE 12.5 MG PO (08:27)
[2025-08-06] MEDS: PROTONIX 40 MG PO ×2 (08:27→19:52)
[2025-08-06] MEDS: LASIX 40 MG IV (08:28)
[2025-08-06] MEDS: FLUSH (NSS) 1 FLUSH IV (08:30)
--- NOTE | 2025-08-06 09:07 | CON.CAR ---
Consultation
Consultation Request
Date/Time Consultation Requested: 08/05/2025 at 1800
Date/Time Consultation Performed: 08/06/2025 at 900
Requesting Provider: Dr. Liz Estevez
Performing Provider: Dr. Wes Vail
Reason for Consultation: Heart failure
Medical History
-
Chief Complaint: Dyspnea
History of Present Illness:
Layne is readmitted now with dyspnea after a hospital stay member over night for anemia related to GI blood loss. She has a history of HFpEF and paroxysmal atrial fibrillation, ultimately undergoing pulmonary vein isolation in April 2024.
Volume management was challenging, but when seen in the office in January 2025 she was not markedly volume overloaded on exam, with a proBNP that was greater than 3000 and a creatinine of 1.7. She has not had documented atrial fibrillation since her
pulmonary vein isolation in April 2024. An outpatient follow-up thereafter she was found to have heme positive stools, on Eliquis for paroxysmal atrial fibrillation. Because of her GI blood loss she ultimately underwent endoscopic evaluation on
July 17. 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 She was anemic and sent to the ER for transfusion for hemoglobin of 6.6 and she was discharged with a hemoglobin of 7.6. Eliquis was stopped. We
saw her in follow-up on July 20. She felt weak and short of breath and tired. A proBNP in late June was 863. We thought her dyspnea was largely related to anemia and felt that risk-benefit analysis favored permanent discontinuation of
Eliquis as long as she had no clinical episodes of atrial fibrillation. Following her July 20 office visit, she remained with shortness of breath orthopnea weight gain and edema along with chest heaviness and presented to the ER. proBNP had
risen to 4780. Troponin was 0.014. Cardiology evaluation is now requested.
Past Medical History
Past Medical History: Arrhythmias (Paroxysmal atrial fibrillation status post pulmonary vein isolation April 2024, also history of PVCs), CHF (HFpEF), CVA (Lacunar stroke), GERD, HTN, Hypercholesterolemia, Hypothyroidism (Goiter, Brijesh's
thyroiditis), Valvular Disease (Mild mitral regurgitation), Psychiatric (Anxiety) and Other (Chronic kidney disease 3B, adrenal adenomas, spinal stenosis, hypothyroidism, pancreatic cyst, fibromyalgia, anxiety, history of UTIs, goiter, GI blood loss
(GAVE))
Past Surgical History: Gynecological (Hysterectomy), Orthopedic (Arthroscopy left knee) and Tonsilectomy
Social History
Tobacco: Non-Smoker
Alcohol: None
Drug: None
Personal:
Living: With Family
Employment: Retired
Family History
Family History: Reviewed & Not Pertinent
Allergies / Home Medications
Allergy/AdvReac Type Severity Reaction Status Date / Time
latex Allergy Rash Verified 07/17/25 12:27
levofloxacin (From Levaquin) Allergy TENDON Verified 07/17/25 12:27
RUPTURE
mirtazapine Allergy HALLUCINATI Verified 07/17/25 12:27
ONS
simvastatin Allergy MYALGIAS Verified 07/17/25 12:27
Ollqfbz-AHX-FuV Reductase Allergy MYALGIAS Verified 07/17/25 12:27
Inhibitor (Ywgxbdy-Rjz-Zyj
Reductase Inhibitor)
�Medication �Instructions �Recorded �Confirmed �Type
cholecalciferol (vitamin D3) 25 2,000 unit PO DAILY Supplement 08/26/11 08/05/25 History
mcg (1,000 unit) tablet
spironolactone 25 mg tablet 12.5 mg PO DAILY Fluid 03/12/23 08/05/25 History
Retention/Swelling
atenolol 25 mg tablet 25 mg PO HS Heart Disease/Condition 04/10/24 08/05/25 History
atorvastatin 20 mg tablet (Lipitor) 20 mg PO DAILY High Cholesterol 04/10/24 08/05/25 History
furosemide 20 mg tablet 20 mg PO DAILY EDEMA 04/10/24 08/05/25 History
albuterol sulfate 90 mcg/actuation 2 puff inhalation R QIDPRN PRN 07/17/25 08/05/25 History
aerosol inhaler (Ventolin HFA) shortness of breath or wheezing
cyclosporine 0.05 % eye drops in a 1 drp BOTH EYES Q12H Eye Condition 07/17/25 08/05/25 History
dropperette (Restasis)
diazepam 5 mg tablet 2.5 mg PO BIDPRN PRN anxiety 07/17/25 08/05/25 History
omeprazole 20 mg tablet,delayed 20 mg PO BID Gastrointestinal Issue 07/17/25 08/05/25 History
release
Review of Systems
-
All other systems: Negative unless noted
Physical Exam
Vital Signs
Temp Pulse Resp BP Pulse Ox
36.4 C 78 18 133/65 94
08/06/25 07:25 08/06/25 07:25 08/06/25 07:25 08/06/25 07:25 08/06/25 07:25
Lab Results
08/06/25 06:04
08/06/25 06:04
Troponin I 0.014 ng/ml 08/05/25 16:44
Eff-W-Xlmjffhvugi Pept 4780 pg/ml 08/05/25 12:53
Physical Exam
General: No Apparent Distress and Other (Weight is 71.5 kg, was 74.3 kg on admission)
HEENT: Normocephalic
Respiratory: Clear
Cardiac: Regular Rhythm, Murmur (Soft MR murmur) and JVD (Normal jugular venous pressure)
GI: Soft and Normal Bowel Sounds
Musculoskeletal: No Edema (1+ nonpitting edema)
Neuro: AO x 3
Psych: Calm
Impression / Plan
-
Impression:
Acute on chronic HFpEF
Blood loss anemia
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
Mitral regurgitation
PAF status post PVI April 2024 without clinical recurrence
GERD
CKD 3B
History of lacunar stroke
Spinal stenosis lumbar
Hypertension
Hyperlipidemia
Anxiety
PVCs
Hypothyroidism
Pancreatic cyst
History of UTIs
Fibromyalgia
Adrenal adenomas
Echo 11/08/2024: EF 60-65%, stage II diastolic dysfunction, MAC, at least mild to moderate mitral regurgitation, mildly dilated left atrium, mild TR, pulmonary artery systolic pressure 35 mmHg
Lexiscan sestamibi study September 2024 normal perfusion, EF greater than 65%
Plan:
She presents with acute on chronic heart failure exacerbated by persistent presumably blood loss anemia. Hemoglobin is 7.6, had been 6.61 to 2 weeks ago.
She is much more comfortable having received IV furosemide, continue for now.
She is a poor candidate for SGLT2 antagonist given her history of UTIs. She is on spironolactone and furosemide.
.
At present I do not think we need to repeat her echocardiogram. Probably okay for transition to oral furosemide in a.m. On admission she was 20 mg daily and will need at least 40 mg daily at discharge, possibly higher.
We will continue to follow
Data Reviewed
-
EKG: Tracing Personally Visualized and interpreted (Normal sinus rhythm, LVH, nonspecific ST and T changes)
Radiology: Image Personally Visualized and interpreted (Cardiomegaly, blunting of right CPA, minimal vascular congestion)
Labs: Labs Reviewed by me (Hemoglobin 7.6, BUN and creatinine 37 and 1.5, creatinine had been 1.2 July 19, potassium 4.3, proBNP 4780, troponin 0.014)
Old Records: Reviewed
[2025-08-06] MEDS: RESTASIS 0.05% OPHTHALMIC EMULSION 1 DROPS BOTH EYES ×2 (10:06→19:54)
[2025-08-06 11:27] VITALS: BP 120/57
[2025-08-06] MEDS: FERRLECIT 110 MG IV (12:01)
[2025-08-06 13:09] LABS: Hematocrit 24.6 % (37.0-47.0); Hemoglobin 7.9 g/dL (12.0-16.0)
--- NOTE | 2025-08-06 13:18 | CM ---
Initial assessment completed. Patient is a 89y/o F with PMH of hypertension, hyperlipidemia, HFpEF, A-fib, CKD presented to ED with shortness of breath and fatigue.
Patient resides w/ son in a single story rancher w/ finished basement, 3 steps to enter. Patient independent in ADLs and ambulation w/ a 4 prong cane. Patient has additional cane, RW, rollator and w/c which she never uses in the home. Patient
drives. Does have [employer] benefits through 's service. No SNF/HC hx.
PCP: Marianna Scott
Pharmacy: [facility]
Plan: Home, no needs anticipated
[2025-08-06 15:20] VITALS: BP 121/56
[2025-08-06] MEDS: LASIX 20 MG IV (17:12)
[2025-08-06 19:33] VITALS: BP 119/53
[2025-08-06] MEDS: TENORMIN 25 MG PO (21:19)
[2025-08-06 23:52] VITALS: BP 118/51
[2025-08-07] MEDS: TYLENOL 650 MG PO (01:58)
[2025-08-07 03:21] VITALS: BP 124/56
[2025-08-07 06:00] VITALS: BMI 29.5
[2025-08-07 07:07] VITALS: BP 120/60
--- NOTE | 2025-08-07 07:09 | W.PN.HOSP.TC ---
Addendum entered and electronically signed by Liz Estevez MD 08/07/25 13:57:
Attending�addendum:
I saw and evaluated the patient independently. I reviewed and discussed the resident�s note and agree with findings and plan as documented in the resident�s note.� p patient seen and examined at bedside, denies any chest pain , shortness of breath
Improved, no abdominal pain, no nausea, no vomiting, no diarrhea or constipation.
lower extremity edema improved.
Physical�exam:
GENERAL : Patient is awake, alert, oriented x3
HEENT: Nonicteric sclerae, PERRLA, EOMI. Oropharynx clear. Moist mucous membranes. Conjunctivae appear well perfused.
CHEST: Chest wall is nontender.
HEART: Regular rate and rhythm without murmurs.
LUNGS: Rales bilaterally.
ABDOMEN: Soft, positive bowel sounds, nontender, no organomegaly.
RECTAL: Deferred.
MUSCLES/EXTREMITIES: +1 edema bilaterally.
NEUROLOGIC: Cranial nerves II-XII intact without motor/sensory deficit.
�
Assessment/plan:
Acute CHF Exacerbation:
Patient has acute on chronic diastolic congestive heart failure
Patient presented with shortness of breath with dyspnea on exertion, orthopnea
BNP level is elevated at 4780
Troponin level is 0.014
Continue IV diuresing in form of Lasix 20 mg today then start oral 40 mg tomorrow
Continue home spironolactone
Daily weight.�
Strict I's and O's.�
Consulted cardiology.�
Appreciate recommendatons
Iron deficiency anemia.
Hemoglobin stable.
Recent GI bleeding.
Patient denies black stool.
s/p iron IV infusion
Paroxysmal A-fib.
Currently sinus rhythm.
Eliquis on hold.
Continue atenolol.
History�of�hypertension
Continue home meds.
History of hyperlipidemia
Continue�statin
CODE STATUS: Full code
DVT prophylaxis: SCDs
Diet: Cardiac diet
Disposition: Discharge home today
�
Total time spent on today�s encounter was 55 minutes which included time spent in counseling the patient/family regarding diagnosis and treatment plan as listed above, goals of care, and symptom management. Case was discussed with nursing staff,
specialists, and care coordinators/case management. All labs and imaging personally reviewed by me. Remainder the time spent in detailed review of previous records, lab data, imaging, and other medical provider documentation.
Original Note:
Today's Communication/Plan
-
Hold Lasix today
Resume PO lasix 08/08
Discharge today
Assessment / Plan
Assessment / Plan
IMPRESSION:
Patient is a 89y/o F with PMH of hypertension, hyperlipidemia, HFpEF, A-fib, CKD presented to ED with shortness of breath and fatigue. Today she had a scheduled f/u appointment with MAKI Lopez who referred her to the ED. She has been experiencing
shortness of breath over 2 weeks. She reports SOB with resting and worse with exertion.
PLAN:
Acute exacerbation of HFpEF
-SOB, orhtopnea, bl leg swelling, chest pain
-Troponin 0.014- neg
-ProBNP- 4780 - HF
-Cardiology consulted, input appreciated
-Likely 2/2 persistant presumably blood loss anemia
-Started IV Lasix 40mg BID, continue spironolactone 12.5 mg PO QD - Cr 1.7 from 1.5-->Hold Lasix today given Creatinine increase--> Resume 40mg Lasix PO QD on 08/08
-poor candidate for SGLT2 antagonist given her history of UTIs
-low Na diet
-Watch I/O
-weight daily
Echo 11/08/2024
-LV ejection fraction is 60-65%
-Stage II diastolic dysfunction
-mild to moderate mitral regurgitation
-Mild tricuspid regurgitation
-Mildly dilated left atrium
Paroxysmal A-fib
-On exam regular rhythm
-ecg - unremarkable
-admitted to telemetry
-Continue atenolol 25mg PO
-Eliquis on hold since discharge from 07/17 because of hx of bleeding/anemia
-She did not have Watchman procedure
Iron deficiency Anemia
-Hx of upper GI bleeding, 07/17 Hb was 6.6, received PRBC transfusion
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
-she has a scheduled appt for IV transfuion weekly starting in
-07/17 Ferritin 17.5
-Hb 7.6 - gave 1 bag of 125mg IV Ferric Gluconate transfusion-->Hb 8
Chronic Kidnesy Disease stage 3b
-eGFR 33, Cr 1.7 (baseline1.2)
-Monitor BMP
Hyperlipidemia
-Continue atorvastatin 20mg PO QD
Anxiety disorder
- Continue diazepam prn
GERD
-Continue Pantoprazole 40mg PO BID
Hypothyroidism
Diet�low-sodium
DVT prophylaxis�SCDs
Full code
Anticipated Discharge: Today
Subjective/Interval History
-
Date of Service: August 07, 2025
She has SOB with walking around the room. Denies SOB during rest. No palpitations, no chest pain, no abdominal pain.
Objective Data
-
Labs:
Laboratory Results
08/07/25
06:00
WBC Pending
Hgb Pending
Hct Pending
Plt Count Pending
Sodium Pending
Potassium Pending
Chloride Pending
Carbon Dioxide Pending
BUN Pending
Creatinine Pending
Glucose Pending
Calcium Pending
Vital Signs:
Vital Signs
Temp Pulse Resp BP Pulse Ox
98.0 F 69 18 124/56 95
08/07/25 03:21 08/07/25 03:21 08/07/25 03:21 08/07/25 03:21 08/07/25 03:21
I&O
08/06/25 08/07/25 08/08/25
06:59 06:59 06:59
Intake Total 960 / 960
Output Total 1460 / 1460
Balance -500 / -500
Review of Systems
-
History Source: Patient
Constitutional: Reports Fatigue
EENT: Reports No Symptoms Reported
Respiratory: Reports Trouble Breathing (during exercise)
Cardiac: Reports Orthopnea
Abdomen/GI: Reports No Symptoms
Breast: Reports No Symptoms
Genitourinary: Reports No Symptoms
Musculoskeletal: Reports No Symptoms
Skin: Reports No Symptoms
Neuro: Reports No Symptoms
Endocrine: Reports No Symptoms
Hematologic / Lymphatic: Reports No Symptoms
Allergy / Immunology: Reports No Symptoms
Physical Exam
-
General: Well Developed, Well Nourished, No Apparent Distress, Comfortable and Conversant
HEENT: Normocephalic, Atraumatic and Moist Mucous Membranes
Cardiac: Regular Rhythm and S1/S2
Breast: Deferred by me
GI: Soft, Nontender, Nondistended and Normal Bowel Sounds
Rectal: Deferred by Provider
Genito-urinary: Deferred by me
Musculoskeletal: No Clubbing, No Cyanosis and No Edema
Skin: Warm and Dry
Neuro: AO x 3, No Motor Deficits, Nonfocal/Grossly Intact and No Sensory Deficits
Hematologic / Lymphatic: No Lymphadenopathy
Psych: Calm
[2025-08-07 08:03] LABS: Hematocrit 25.2 % (37.0-47.0); Hemoglobin 8.0 g/dL (12.0-16.0); Mean Corp Hgb Conc. 31.7 g/dL (33.0-37.0); Mean Corpuscular Volume 89.7 fL (81.0-99.0); Platelet Count 402 10^3/uL (130-400); Red Cell Dist. Width 14.5 % (11.5-14.5)
[2025-08-07 08:28] LABS: Blood Urea Nitrogen 37 mg/dl (7-17); Calcium 8.9 mg/dl (8.4-10.2); Carbon Dioxide 30 mmol/L (22-30); Chloride 103 mmol/L (98-107); Estimated Creatinine Clearance 21 ml/min; Glucose 103 mg/dl (70-99); Magnesium 2.2 mg/dl (1.6-2.3); Potassium 4.3 mmol/L (3.5-5.1); Sodium 137 mmol/L (135-145); eGFR 28.67
[2025-08-07] MEDS: ALDACTONE 12.5 MG PO (09:34)
[2025-08-07] MEDS: PROTONIX 40 MG PO (09:35)
[2025-08-07] MEDS: RESTASIS 0.05% OPHTHALMIC EMULSION 1 DROPS BOTH EYES (09:40)
--- NOTE | 2025-08-07 10:10 | W.PN.CARDCBS ---
Today's Communication / Plan
-
With rising creatinine would hold Lasix today
Resume p.o. Lasix 40 mg daily to start tomorrow 08/08
Stable for discharge from my perspective, outpatient follow-up to be arranged
Impression / Plan
-
Impression:
Acute on chronic HFpEF
Blood loss anemia
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
Mitral regurgitation
PAF status post PVI April 2024 without clinical recurrence
GERD
CKD 3B
History of lacunar stroke
Spinal stenosis lumbar
Hypertension
Hyperlipidemia
Anxiety
PVCs
Hypothyroidism
Pancreatic cyst
History of UTIs
Fibromyalgia
Adrenal adenomas
Echo 11/08/2024: EF 60-65%, stage II diastolic dysfunction, MAC, at least mild to moderate mitral regurgitation, mildly dilated left atrium, mild TR, pulmonary artery systolic pressure 35 mmHg
Lexiscan sestamibi study September 2024 normal perfusion, EF greater than 65%
Plan:
Presents with acute on chronic heart failure exacerbated by anemia
Appears euvolemic on exam today following treatment with IV lasix
Creatinine slightly elevated today from baseline.
Would resume PO Lasix 40mg daily tomorrow 08/08.
She is a poor candidate for SGLT2 antagonist given her history of UTIs. She is on spironolactone and furosemide.
No need to repeat her echocardiogram.
Stable for discharge from my perspective, outpatient follow-up to be arranged
Progress Note - Consulting Nurse
Subjective
Date of Service: August 07, 2025
No acute overnight events. Patient is resting comfortably in bed. No cardiac complaints.
Objective
Labs:
08/07/25 07:24
08/07/25 07:24
Labs
Hgb 8.0 g/dL (12.0-16.0) L 08/07/25 07:24
Hct 25.2 % (37.0-47.0) L 08/07/25 07:24
Plt Count 402 10^3/uL (130-400) H 08/07/25 07:24
Sodium 137 mmol/L (135-145) 08/07/25 07:24
Potassium 4.3 mmol/L (3.5-5.1) 08/07/25 07:24
BUN 37 mg/dl (7-17) H 08/07/25 07:24
Creatinine 1.7 mg/dL (0.6-1.0) H 08/07/25 07:24
Glucose 103 mg/dl (70-99) H 08/07/25 07:24
Troponins
08/05/25
16:44
Troponin I 0.014
Vital Signs and I&O:
Vital Signs
Temp Pulse Resp BP Pulse Ox
97.7 F 96 18 120/60 95
08/07/25 07:07 08/07/25 07:07 08/07/25 07:07 08/07/25 07:07 08/07/25 07:07
Vital Signs
Temp Pulse Resp BP Pulse Ox
97.7 F 96 18 120/60 95
08/07/25 07:07 08/07/25 07:07 08/07/25 07:07 08/07/25 07:07 08/07/25 07:07
Intake & Output
08/05/25 08/06/25 08/07/25 08/08/25
06:59 06:59 06:59 06:59
Intake Total 960 / 960
Output Total 1460 / 1460
Balance -500 / -500
Physical Exam
Physical Exam
Gen: NAD, AAOx3
HEENT: NC/AT, sclera anicteric
Neck: No JVD
CV: RRR, NL s1/s2, no M/R/G
Lungs: CTAB
Abd: S/ND
Ext: No LE edema
Skin: Warm, dry
Neuro: Non-focal
--- NOTE | 2025-08-07 10:50 | CM ---
CM reviewed chart, patient seen bedside.
Patient denies needs from CM- reports daughter will transport her home.
IMM verbally reviewed, provided with copy, placed in chart.
CM will continue to follow for all d/c needs.
Plan; home no needs
[2025-08-07 11:18] VITALS: BP 112/53
--- NOTE | 2025-08-07 12:56 | W.DCSUMMARY ---
Addendum entered and electronically signed by Liz Estevez MD 08/07/25 13:58:
Attending�addendum:
I saw and evaluated the patient independently. I reviewed and discussed the resident�s note and agree with findings and plan as documented in the resident�s note.� p patient seen and examined at bedside, denies any chest pain , shortness of breath
Improved, no abdominal pain, no nausea, no vomiting, no diarrhea or constipation.
lower extremity edema improved.
Physical�exam:
GENERAL : Patient is awake, alert, oriented x3
HEENT: Nonicteric sclerae, PERRLA, EOMI. Oropharynx clear. Moist mucous membranes. Conjunctivae appear well perfused.
CHEST: Chest wall is nontender.
HEART: Regular rate and rhythm without murmurs.
LUNGS: Rales bilaterally.
ABDOMEN: Soft, positive bowel sounds, nontender, no organomegaly.
RECTAL: Deferred.
MUSCLES/EXTREMITIES: +1 edema bilaterally.
NEUROLOGIC: Cranial nerves II-XII intact without motor/sensory deficit.
�
Assessment/plan:
Acute CHF Exacerbation:
Patient has acute on chronic diastolic congestive heart failure
Patient presented with shortness of breath with dyspnea on exertion, orthopnea
BNP level is elevated at 4780
Troponin level is 0.014
Continue IV diuresing in form of Lasix 20 mg today then start oral 40 mg tomorrow
Continue home spironolactone
Daily weight.�
Strict I's and O's.�
Consulted cardiology.�
Appreciate recommendatons
Iron deficiency anemia.
Hemoglobin stable.
Recent GI bleeding.
Patient denies black stool.
s/p iron IV infusion
Paroxysmal A-fib.
Currently sinus rhythm.
Eliquis on hold.
Continue atenolol.
History�of�hypertension
Continue home meds.
History of hyperlipidemia
Continue�statin
CODE STATUS: Full code
DVT prophylaxis: SCDs
Diet: Cardiac diet
Disposition: Discharge home today
�
Total time spent on today�s encounter was 55 minutes which included time spent in counseling the patient/family regarding diagnosis and treatment plan as listed above, goals of care, and symptom management. Case was discussed with nursing staff,
specialists, and care coordinators/case management. All labs and imaging personally reviewed by me. Remainder the time spent in detailed review of previous records, lab data, imaging, and other medical provider documentation.
Original Note:
Documented by User: Mayelin Chance MD, Resident 08/07/25 13:32
Discharge Summary
Discharge Data
Date of Admission: 08/05/25
Date of Discharge: 08/07/25
-
Pending Results: No
Hospital Course
Discharging Physician : Dr. Mayelin Chance, Dr. Liz Estevez
Disposition : Home
Primary care physician : Tyler Cabral
Principal Discharge diagnosis :
Acute exacerbation of Heart Failure
Chronic Discharge diagnosis :
Iron deficiency Anemia
Chronic Kidnesy Disease stage 3b
Hyperlipidemia
Paroxysmal A-fib
Anxiety disorder
GERD
Hospital Course :
Mrs. Patrick is a 89y/o F with PMH of hypertension, hyperlipidemia, HFpEF, A-fib, CKD stage 3b presented to ED on 08/05/2025 with shortness of breath and fatigue. She had a scheduled f/u appointment with GI who referred her to the ED. She has
been experiencing shortness of breath over 2 weeks. At ED she was treated for acute exacerbation of HF likely secondary to anemia. Her ProBNP was 4780, trop neg. She was treated with Lasix. She received 1 bag of Ferric gluconate transfusion. Her
hb is stable at 8.
Please f/u with your leather tanner within 2 weeks
Please f/u with your PCP kandacein a week
Please f/u with your Building Construction Professor within 2 weeks
Discharge Plan
-
Patient Disposition: Home (Routine Discharge)
Discharge Diagnosis/Procedures: Acute exacerbation of Heart Failure
Iron deficiency Anemia
Chronic Kidnesy Disease stage 3b
Hyperlipidemia
Paroxysmal A-fib
Anxiety disorder
GERD
Condition: Fair
Diet: Low Sodium
Activity: No restrictions
Driving Restrictions: As prior to admission
Bathing Restrictions: None
Referrals:
Omayra Kamara PA-C [Specified Professional Personl, Cardiology] - 08/10/25 8:20 am
Referral Note: You have a follow up visit with Dr. Vail's Omayra GONZALEZ, at the [place] office. Please call with questions.
Tyler Cabral MD [Family Provider, Internal Medicine]
Additional Discharge Medication Instructions: Start taking Furosemide 08/08/2025 20mg twice daily
Please follow up with you PCP within a week
Please follow up with your Compliance Reviewer within 2 weeks
Please follow up with your Building Construction Professor within 2 weeks
Prescriptions:
New
furosemide [Lasix] 20 mg tablet
20 mg PO BID Qty: 14 0RF
Continued
cholecalciferol (vitamin D3) 1,000 UNIT tablet
2,000 unit PO DAILY
spironolactone 25 mg Tablet
12.5 mg PO DAILY
atorvastatin [Lipitor] 20 mg Tablet
20 mg PO DAILY
atenolol 25 mg Tablet
25 mg PO HS
diazepam 5 mg Tablet
2.5 mg PO BIDPRN PRN (Reason: anxiety)
omeprazole 20 mg Tablet,Delayed Release (Dr/Ec)
20 mg PO BID
cyclosporine [Restasis] 0.05 % Dropperette
1 drp BOTH EYES Q12H
albuterol sulfate [Ventolin HFA] 90 mcg/actuation HFA aerosol inhaler
2 puff inhalation R QIDPRN PRN (Reason: shortness of breath or wheezing)
Discontinued
furosemide 20 mg Tablet
20 mg PO DAILY
Discharge Orders:
Discharge Patient (As Directed); Ordered 08/07/25
Ordered By: Mayelin Chance
Discharge Date and Time
Discharge Date/Time: 08/07/25 13:38
Print Language: SRI LANKAN

Documented by User: Liz Estevez MD 08/07/25 13:58
Discharge Summary
Discharge Data
Date of Admission: 08/05/25
Date of Discharge: 08/07/25
Discharge Plan
-
Patient Disposition: Home (Routine Discharge)
Discharge Diagnosis/Procedures: Acute exacerbation of Heart Failure
Iron deficiency Anemia
Chronic Kidnesy Disease stage 3b
Hyperlipidemia
Paroxysmal A-fib
Anxiety disorder
GERD
Condition: Fair
Diet: Low Sodium
Activity: No restrictions
Driving Restrictions: As prior to admission
Bathing Restrictions: None
Referrals:
Omayra Kamara PA-C [Specified Professional Personl, Cardiology] - 08/10/25 8:20 am
Referral Note: You have a follow up visit with Dr. Vail's PA, Omayra Kamara, at the [facility]. Please call with questions.
Tyler Cabral MD [Family Provider, Internal Medicine]
Additional Discharge Medication Instructions: Start taking Furosemide 08/08/2025 20mg twice daily
Please follow up with you PCP within a week
Please follow up with your Compliance Reviewer within 2 weeks
Please follow up with your Building Construction Professor within 2 weeks
Prescriptions:
New
furosemide [Lasix] 20 mg tablet
20 mg PO BID Qty: 14 0RF
Continued
cholecalciferol (vitamin D3) 1,000 UNIT tablet
2,000 unit PO DAILY
spironolactone 25 mg Tablet
12.5 mg PO DAILY
atorvastatin [Lipitor] 20 mg Tablet
20 mg PO DAILY
atenolol 25 mg Tablet
25 mg PO HS
diazepam 5 mg Tablet
2.5 mg PO BIDPRN PRN (Reason: anxiety)
omeprazole 20 mg Tablet,Delayed Release (Dr/Ec)
20 mg PO BID
cyclosporine [Restasis] 0.05 % Dropperette
1 drp BOTH EYES Q12H
albuterol sulfate [Ventolin HFA] 90 mcg/actuation HFA aerosol inhaler
2 puff inhalation R QIDPRN PRN (Reason: shortness of breath or wheezing)
Discontinued
furosemide 20 mg Tablet
20 mg PO DAILY
Discharge Orders:
Discharge Patient (As Directed); Ordered 08/07/25
Ordered By: Mayelin Chance
Discharge Date and Time
Discharge Date/Time: 08/07/25 13:38
Print Language: SRI LANKAN
== END 2025-08-07 13:38 | disposition home or self-care (01) | DRG 291 ==
LOC: 4 WEST ACU 18:04
PROVIDERS: Emergency Medicine; ADMITTING PHYSICIAN General Practice; CONSULT PHYSICIAN Internal Medicine Cardiovascular Disease; EMERGENCY PHYSICIAN Emergency Medicine; FAMILY PHYSICIAN Internal Medicine Geriatric Medicine
DX: I13.0 Hypertensive heart and chronic kidney disease with heart failure and stage 1 through stage 4 chronic kidney disease, or unspecified chronic kidney disease (principal); I50.33 Acute on chronic diastolic (congestive) heart failure; K31.811 Angiodysplasia of stomach and duodenum with bleeding; I48.0 Paroxysmal atrial fibrillation; D50.0 Iron deficiency anemia secondary to blood loss (chronic); F41.9 Anxiety disorder, unspecified; N18.32 Chronic kidney disease, stage 3b; E78.5 Hyperlipidemia, unspecified; K21.9 Gastro-esophageal reflux disease without esophagitis; Z79.899 Other long term (current) drug therapy; Z87.440 Personal history of urinary (tract) infections
CPT/HCPCS: 71046; 80048; 80053; 81003; 83735; 83880; 84484; 85014; 85018; 85025; 85027; 86850; 86900; 86901; 93005; 96374; 99285; J2916

== ENCOUNTER → 2025-08-11 08:34 | Outpatient (REF) | payer MEDICARE, OTHER, SELFPAY | LOC: RAD 08:34 | PROVIDERS: ATTENDING PHYSICIAN Nurse Practitioner Adult Health | DX: M79.89 Other specified soft tissue disorders (principal); I80.8 Phlebitis and thrombophlebitis of other sites | CPT/HCPCS: 93971 ==

== ENCOUNTER → 2025-08-19 11:31 | Outpatient (REF) | payer MEDICARE, OTHER, SELFPAY ==
[2025-08-19 12:48] LABS: Hematocrit 30.3 % (37.0-47.0); Hemoglobin 9.5 g/dL (12.0-16.0); Mean Corp Hgb Conc. 31.4 g/dL (33.0-37.0); Mean Corpuscular Volume 96.2 fL (81.0-99.0); Nucleated Red Blood Cells % 0 %; Platelet Count 315 10^3/uL (130-400); Red Cell Dist. Width 18.5 % (11.5-14.5)
[2025-08-19 16:46] LABS: Iron 146 ug/dl (37-170)
[2025-08-19 16:57] LABS: Total Iron Binding Capacity 392 ug/dl (265-497)
== END ==
LOC: REG 11:31
PROVIDERS: ATTENDING PHYSICIAN Internal Medicine Geriatric Medicine
DX: E61.1 Iron deficiency (principal); R79.89 Other specified abnormal findings of blood chemistry; D64.9 Anemia, unspecified; Z09 Encounter for follow-up examination after completed treatment for conditions other than malignant neoplasm; J47.9 Bronchiectasis, uncomplicated; M79.10 Myalgia, unspecified site; E78.2 Mixed hyperlipidemia; F41.9 Anxiety disorder, unspecified; K21.9 Gastro-esophageal reflux disease without esophagitis; I34.0 Nonrheumatic mitral (valve) insufficiency; I48.0 Paroxysmal atrial fibrillation; I50.31 Acute diastolic (congestive) heart failure; R73.01 Impaired fasting glucose; I11.0 Hypertensive heart disease with heart failure; E04.1 Nontoxic single thyroid nodule; I73.9 Peripheral vascular disease, unspecified; R60.9 Edema, unspecified; Z91.81 History of falling; M54.50 Low back pain, unspecified; M25.50 Pain in unspecified joint; M25.551 Pain in right hip; M25.552 Pain in left hip; I95.1 Orthostatic hypotension; Z68.25 Body mass index [BMI] 25.0-25.9, adult; N18.32 Chronic kidney disease, stage 3b; R06.00 Dyspnea, unspecified; R05.9 Cough, unspecified; Z13.89 Encounter for screening for other disorder
CPT/HCPCS: 36415; 83540; 83550; 85025

== ENCOUNTER → 2025-08-22 09:03 | Outpatient (REF) | payer MEDICARE, OTHER, SELFPAY ==
[2025-08-22 11:01] LABS: ALT (SGPT) 32 U/L (0-35); AST (SGOT) 44 U/L (14-36); Albumin 4.1 g/dl (3.5-5.0); Alkaline Phosphatase 104 U/L (38-126); Blood Urea Nitrogen 38 mg/dl (7-17); Calcium 9.0 mg/dl (8.4-10.2); Carbon Dioxide 26 mmol/L (22-30); Chloride 100 mmol/L (98-107); Glucose 108 mg/dl (70-99); Potassium 4.2 mmol/L (3.5-5.1); Sodium 135 mmol/L (135-145); Total Protein 8.2 g/dl (6.3-8.2); eGFR 33.10
== END ==
LOC: REG 09:03
PROVIDERS: ATTENDING PHYSICIAN Internal Medicine Geriatric Medicine; FAMILY PHYSICIAN Nurse Practitioner Adult Health
DX: Z09 Encounter for follow-up examination after completed treatment for conditions other than malignant neoplasm (principal); J47.9 Bronchiectasis, uncomplicated; M79.10 Myalgia, unspecified site; E78.2 Mixed hyperlipidemia; F41.9 Anxiety disorder, unspecified; K21.9 Gastro-esophageal reflux disease without esophagitis; I34.0 Nonrheumatic mitral (valve) insufficiency; I48.0 Paroxysmal atrial fibrillation; I50.31 Acute diastolic (congestive) heart failure; R73.01 Impaired fasting glucose; I11.0 Hypertensive heart disease with heart failure; E04.1 Nontoxic single thyroid nodule; I73.9 Peripheral vascular disease, unspecified; R06.00 Dyspnea, unspecified; R05.9 Cough, unspecified
CPT/HCPCS: 36415; 71046; 80053; 83880; 84100

== ENCOUNTER 2025-09-07 11:14 | Outpatient (RCR) | payer MEDICARE, OTHER, SELFPAY ==
[2025-08-10 09:45] VITALS: BP 134/61
[2025-08-10] MEDS: VENOFER 110 MG IV (10:05)
--- NOTE | 2025-08-10 10:23 | PTCARENOTE ---
Addendum entered by Sabrina Frazier RN 08/10/25 10:27:
update: Latisha COTTON ACREAGE MEASURER reached out to Dr. Cabral's office and pt now has an appointment with their COTTON ACREAGE MEASURER at 3:45pm today, pt aware and agreeable.
Original Note:
1850: pt here for Venofer infusion, states right arm ac area very discomforting and wanted this RN to look at it. Right AC area red, warm, slightly swollen, and hardened area. Area outlined with marker and told patient to keep an eye on it to make
sure area was not getting bigger. Also had COTTON ACREAGE MEASURERLatisha look at area as well. Will follow.
[2025-08-10 11:37] VITALS: BP 123/63
[2025-08-17 11:20] VITALS: BP 141/66
[2025-08-17] MEDS: VENOFER 110 MG IV (11:34)
[2025-08-17 13:07] VITALS: BP 115/51
[2025-08-24 13:50] VITALS: BP 112/74
[2025-08-24] MEDS: VENOFER 110 MG IV (14:00)
[2025-08-24 15:45] VITALS: BP 135/62
[2025-08-31 10:05] VITALS: BP 125/50
[2025-08-31] MEDS: VENOFER 110 MG IV (10:25)
[2025-08-31 12:01] VITALS: BP 107/57
[2025-09-07 11:26] VITALS: BP 126/53
[2025-09-07] MEDS: VENOFER 110 MG IV (11:35)
[2025-09-07 12:44] VITALS: BP 133/59
== END 2025-09-09 23:59 | disposition home or self-care (01) ==
LOC: OID 11:14
PROVIDERS: ATTENDING PHYSICIAN Internal Medicine Geriatric Medicine
DX: D50.0 Iron deficiency anemia secondary to blood loss (chronic) (principal); K92.2 Gastrointestinal hemorrhage, unspecified
CPT/HCPCS: 96365; J1756